=== PATIENT | female | born 1980 | race Caucasian/White ===

== ENCOUNTER → 2018-04-06 10:24 | Outpatient (CLI) | payer BC, SELFPAY ==
--- NOTE | 2018-04-06 10:30 | XR_ITS ---
XR ankle RT min 3V HISTORY: Posttraumatic pain ITS.REASON: RT FOOT INJURY,RT ANKLE SPRAIN ORDERING PHYSICIAN: СЕРГЕЙ Euceda PATIENT AGE: 37 years Comparison: None FINDINGS: No fracture or dislocation. No lytic or blastic change. There is normal mineralization.. The joint spaces are well-preserved. No significant degenerative/arthritic changes. No erosive changes evident. IMPRESSION: Negative ankle, no acute finding
--- NOTE | 2018-04-06 10:30 | XR_ITS ---
XR foot RT min 3V HISTORY: Posttraumatic pain ORDERING PHYSICIAN: СЕРГЕЙ Euceda PATIENT AGE: 37 years COMPARISON: None FINDINGS: No fracture or dislocation. No lytic or blastic change. There is normal mineralization.. The joint spaces are well-preserved. No significant degenerative/arthritic changes. No erosive changes evident. IMPRESSION: Negative, no acute finding
== END ==
PROVIDERS: PCP Family Medicine; Visit Provider Physician Assistant
DX: S99.921A Unspecified injury of right foot, initial encounter (principal); S93.491A Sprain of other ligament of right ankle, initial encounter
CPT/HCPCS: 73610; 73630

== ENCOUNTER → 2018-05-12 15:36 | Outpatient (CLI) | payer BC, SELFPAY ==
[2018-05-12 15:41] LABS: Microscopic, Urine URINE MICROSCOPIC (MICROSCOPIC)
[2018-05-12 16:26] LABS: Appearance,Urine CLOUDY (Clear); Bilirubin,Urine Negative (Negative); Blood, Urine 1+ (Negative); Color,Urine YELLOW (Yellow); Glucose,Urine (UA) Negative (Negative); Ketones,Urine Negative (Negative); Leukocyte Esterase,Urine TRACE (Negative); Nitrate,Urine Negative (Negative); Protein,Urine Negative (Negative); Specific Gravity, Urine >= 1.030 (1.005-1.030); Urobilinogen,Urine 0.2 EU/dl (0.2)
[2018-05-12 17:12] LABS: Bacteria,Urine 2+ /lpf
== END ==
PROVIDERS: Visit Provider Emergency Medicine
DX: N30.01 Acute cystitis with hematuria (principal)
CPT/HCPCS: 81001; 87086

== ENCOUNTER → 2018-09-26 14:00 | Outpatient (POV) | payer BC, SELFPAY | PROVIDERS: Visit Provider Dermatology | DX: Z00.00 Encounter for general adult medical examination without abnormal findings (principal) ==

== ENCOUNTER → 2018-10-19 10:11 | Outpatient (CLI) | payer BC, SELFPAY ==
[2018-10-19 10:33] LABS: Urine Pregnancy, HCG Qual. Negative (Negative)
[2018-10-19 10:57] LABS: Basophils % 0.2 % (0.1-2.0); Eosinophils # 0.5 K/mm3 (0.0-0.4); Eosinophils % 5.4 % (0.1-12.0); Hematocrit 45.9 % (37.0-47.0); Hemoglobin 14.8 g/dL (12.2-16.2); Lymphocytes # 2.7 K/mm3 (0.7-4.5); Lymphocytes % 30.4 % (10-50); Mean Corpuscular HGB Conc 32.3 g/dL (31.8-35.4); Mean Corpuscular Hemoglobin 29.9 pg (27.0-31.2); Mean Corpuscular Volume 92.5 fl (81-99); Mean Platelet Volume 8.6 fl (7.4-10.4); Monocytes # 0.7 K/mm3 (0.1-1.0); Monocytes % 7.4 % (1.7-9.3); Neutrophils % 56.6 % (37.0-80.0); Platelet Count 284 K/mm3 (142-424); Red Blood Count 4.96 M/mm3 (4.20-5.40); Red Cell Distribution Width 13.3 % (11.5-17.5); White Blood Count 8.8 K/mm3 (4.8-10.8)
[2018-10-19 13:50] LABS: Anion Gap 15.4 mEq/L (5-15); Blood Urea Nitrogen 17 mg/dL (7-18); Calcium 8.8 mg/dL (8.5-10.1); Carbon Dioxide 25 mmol/L (21.0-32.0); Chloride 104 mmol/L (98-107); Creatinine,Serum 0.85 mg/dL (0.55-1.02); Estimated Glomerular Filt Rate 75 ml/min (>60); GFR (African American) 91 ML/MIN (>60); Glucose 96 mg/dL (74-106); Potassium 4.4 mmoL/L (3.5-5.1); Sodium 140 mmol/L (136-145)
== END ==
PROVIDERS: Visit Provider Nurse Practitioner Obstetrics & Gynecology
DX: Z01.818 Encounter for other preprocedural examination (principal); Z30.09 Encounter for other general counseling and advice on contraception
CPT/HCPCS: 36415; 80048; 81025; 85025

== ENCOUNTER → 2018-12-19 14:04 | Outpatient (POV) | payer BC, SELFPAY ==
[2018-12-19 15:03] LABS: Basophils % 0.3 % (0.1-2.0); Eosinophils # 0.4 K/mm3 (0.0-0.4); Eosinophils % 3.9 % (0.1-12.0); Hematocrit 43.4 % (37.0-47.0); Hemoglobin 14.4 g/dL (12.2-16.2); Lymphocytes # 3.5 K/mm3 (0.7-4.5); Lymphocytes % 30.9 % (10-50); Mean Corpuscular HGB Conc 33.1 g/dL (31.8-35.4); Mean Corpuscular Hemoglobin 29.6 pg (27.0-31.2); Mean Corpuscular Volume 89.3 fl (81-99); Monocytes # 0.6 K/mm3 (0.1-1.0); Monocytes % 5.4 % (1.7-9.3); Neutrophils # 6.7 K/mm3 (1.8-7.8); Neutrophils % 59.4 % (37.0-80.0); Platelet Count 365 K/mm3 (142-424); Red Blood Count 4.86 M/mm3 (4.20-5.40); White Blood Count 11.2 K/mm3 (4.8-10.8)
[2018-12-19 16:02] LABS: Alanine Aminotransferase 25 U/L (12-78); Albumin Level 4.1 gm/dL (3.4-5.0); Albumin/Globulin Ratio 1.3 (1.1-1.8); Alkaline Phosphatase 129 U/L (46-116); Anion Gap 13.6 mEq/L (5-15); Aspartate Amino Transferase 13 U/L (15-37); Bilirubin,Total 0.3 mg/dL (0.2-1.0); Blood Urea Nitrogen 16 mg/dL (7-18); Calcium 9.6 mg/dL (8.5-10.1); Carbon Dioxide 28 mmol/L (21.0-32.0); Chloride 102 mmol/L (98-107); Creatinine,Serum 0.93 mg/dL (0.55-1.02); Estimated Glomerular Filt Rate 67 ml/min (>60); GFR (African American) 82 ML/MIN (>60); Globulin 3.2 gm/dl (1.3-3.2); Glucose 94 mg/dL (74-106); Potassium 4.6 mmoL/L (3.5-5.1); Sodium 139 mmol/L (136-145); Total Protein,Serum 7.3 gm/dL (6.4-8.2)
[2018-12-21 10:14] LABS: Hep A Ab, IgM Negative (Negative); Hepatitis B Core Antibody IgM Negative (Negative); Hepatitis B Surface Antigen Negative (Negative)
[2018-12-21 12:35] LABS: Hepatitis C Antibody <0.1 s/co ratio (0.0-0.9)
[2018-12-22 14:20] LABS: QuantiFERON-TB Gold Plus Negative (Negative)
== END ==
PROVIDERS: Visit Provider Dermatology
DX: L40.0 Psoriasis vulgaris (principal); Z79.899 Other long term (current) drug therapy
CPT/HCPCS: 36415; 80053; 80074; 85025; 86480

== ENCOUNTER → 2019-01-16 15:40 | Outpatient (POV) | payer BC, SELFPAY ==
[2019-01-16 16:47] LABS: Basophils % 0.4 % (0.1-2.0); Eosinophils # 0.4 K/mm3 (0.0-0.4); Eosinophils % 5.1 % (0.1-12.0); Hematocrit 41.1 % (37.0-47.0); Hemoglobin 13.8 g/dL (12.2-16.2); Lymphocytes # 3.1 K/mm3 (0.7-4.5); Lymphocytes % 37.4 % (10-50); Mean Corpuscular HGB Conc 33.6 g/dL (31.8-35.4); Mean Corpuscular Hemoglobin 30.1 pg (27.0-31.2); Mean Corpuscular Volume 89.6 fl (81-99); Mean Platelet Volume 8.6 fl (7.4-10.4); Monocytes # 0.6 K/mm3 (0.1-1.0); Monocytes % 7.3 % (1.7-9.3); Neutrophils # 4.2 K/mm3 (1.8-7.8); Neutrophils % 49.8 % (37.0-80.0); Platelet Count 352 K/mm3 (142-424); Red Blood Count 4.59 M/mm3 (4.20-5.40); Red Cell Distribution Width 13.1 % (11.5-17.5); White Blood Count 8.4 K/mm3 (4.8-10.8)
[2019-01-16 17:20] LABS: Alanine Aminotransferase 23 U/L (12-78); Albumin Level 3.9 gm/dL (3.4-5.0); Albumin/Globulin Ratio 1.3 (1.1-1.8); Alkaline Phosphatase 138 U/L (46-116); Anion Gap 11.2 mEq/L (5-15); Aspartate Amino Transferase 15 U/L (15-37); Bilirubin,Total 0.4 mg/dL (0.2-1.0); Blood Urea Nitrogen 15 mg/dL (7-18); Calcium 9.4 mg/dL (8.5-10.1); Carbon Dioxide 31 mmol/L (21.0-32.0); Chloride 102 mmol/L (98-107); Creatinine,Serum 0.99 mg/dL (0.55-1.02); Estimated Glomerular Filt Rate 63 ml/min (>60); GFR (African American) 76 ML/MIN (>60); Globulin 3.1 gm/dl (1.3-3.2); Glucose 87 mg/dL (74-106); Potassium 4.2 mmoL/L (3.5-5.1); Sodium 140 mmol/L (136-145)
== END ==
PROVIDERS: Visit Provider Dermatology
DX: L40.0 Psoriasis vulgaris (principal); Z79.899 Other long term (current) drug therapy
CPT/HCPCS: 36415; 80053; 85025

== ENCOUNTER → 2019-02-27 16:19 | Outpatient (POV) | payer BC, SELFPAY | PROVIDERS: Visit Provider Dermatology | DX: Z00.00 Encounter for general adult medical examination without abnormal findings (principal) ==

== ENCOUNTER → 2019-02-27 16:20 | Outpatient (CLI) | payer BC, SELFPAY ==
[2019-02-27 16:46] LABS: Basophils % 0.3 % (0.1-2.0); Eosinophils # 0.5 K/mm3 (0.0-0.4); Eosinophils % 3.8 % (0.1-12.0); Hematocrit 44.5 % (37.0-47.0); Hemoglobin 14.5 g/dL (12.2-16.2); Lymphocytes # 3.5 K/mm3 (0.7-4.5); Lymphocytes % 28.8 % (10-50); Mean Corpuscular HGB Conc 32.6 g/dL (31.8-35.4); Mean Corpuscular Hemoglobin 30.2 pg (27.0-31.2); Mean Corpuscular Volume 92.6 fl (81-99); Mean Platelet Volume 7.8 fl (7.4-10.4); Monocytes # 0.9 K/mm3 (0.1-1.0); Monocytes % 7.2 % (1.7-9.3); Neutrophils # 7.2 K/mm3 (1.8-7.8); Neutrophils % 59.9 % (37.0-80.0); Platelet Count 397 K/mm3 (142-424); Red Cell Distribution Width 13.7 % (11.5-17.5); White Blood Count 12.1 K/mm3 (4.8-10.8)
[2019-02-27 18:32] LABS: Alanine Aminotransferase 19 U/L (12-78); Albumin Level 3.9 gm/dL (3.4-5.0); Albumin/Globulin Ratio 1.2 (1.1-1.8); Alkaline Phosphatase 126 U/L (46-116); Anion Gap 12.4 mEq/L (5-15); Aspartate Amino Transferase 7 U/L (15-37); Bilirubin,Total 0.3 mg/dL (0.2-1.0); Blood Urea Nitrogen 15 mg/dL (7-18); Calcium 8.9 mg/dL (8.5-10.1); Carbon Dioxide 29 mmol/L (21.0-32.0); Chloride 102 mmol/L (98-107); Estimated Glomerular Filt Rate 80 ml/min (>60); GFR (African American) 97 ML/MIN (>60); Globulin 3.2 gm/dl (1.3-3.2); Glucose 89 mg/dL (74-106); Potassium 4.4 mmoL/L (3.5-5.1); Sodium 139 mmol/L (136-145); Total Protein,Serum 7.1 gm/dL (6.4-8.2)
== END ==
PROVIDERS: Visit Provider Dermatology
DX: L40.0 Psoriasis vulgaris (principal); Z79.899 Other long term (current) drug therapy
CPT/HCPCS: 36415; 80053; 85025

== ENCOUNTER → 2019-03-09 15:56 | Outpatient (CLI) | payer BC, SELFPAY ==
--- NOTE | 2019-03-09 16:04 | XR_ITS ---
PROCEDURE: XR HAND LT 2V CLINICAL INDICATION: LT HAND PAIN,PSORIASIS COMPARISON: No exams were available for comparison FINDINGS: No fracture or dislocation. No lytic or blastic change. There is normal mineralization. The joint spaces are well-preserved. No significant degenerative/arthritic changes. No erosive changes evident. Other findings:None. IMPRESSION: Negative left hand Dictated by: Andres Quick MD 03/09/2019 16:51 Electronically signed by Andres Quick MD in [place] 03/09/2019 16:51
--- NOTE | 2019-03-09 16:04 | XR_ITS ---
PROCEDURE: XR HAND RT 2V CLINICAL INDICATION: PSORIASIS,RT HAND PAIN COMPARISON: No exams were available for comparison FINDINGS: No fracture or dislocation. No lytic or blastic change. There is normal mineralization. The joint spaces are well-preserved. No significant degenerative/arthritic changes. No erosive changes evident. Other findings:None. IMPRESSION: Negative right hand Dictated by: Andres Quick MD 03/09/2019 16:51 Electronically signed by Andres Quick MD in [place] 03/09/2019 16:51
--- NOTE | 2019-03-09 16:04 | XR_ITS ---
PROCEDURE: XR KNEE RT 2V CLINICAL INDICATION: DEMETRI KNEE/JOINT PAIN Knee pain COMPARISON: KNEE3R KNEE-3 VIEWS-RT from 12/21/2016 FINDINGS: No fracture or dislocation. No lytic or blastic change. There is normal mineralization. The joint spaces are well-preserved. No significant degenerative/arthritic changes. No erosive changes evident. Other findings:None. IMPRESSION: Negative right knee Dictated by: Andres Quick MD 03/09/2019 16:56 Electronically signed by Andres Quick MD in [facility] 03/09/2019 16:56
--- NOTE | 2019-03-09 16:04 | XR_ITS ---
PROCEDURE: XR KNEE LT 2V CLINICAL INDICATION: DEMETRI KNEE/JOINT PAIN Knee pain COMPARISON: KNEE3R KNEE-3 VIEWS-RT from 12/21/2016 FINDINGS: No fracture or dislocation. No lytic or blastic change. There is normal mineralization. The joint spaces are well-preserved. No significant degenerative/arthritic changes. No erosive changes evident. Other findings:None. IMPRESSION: Negative left knee Dictated by: Andres Quick MD 03/09/2019 16:52 Electronically signed by Andres Quick MD in [place] 03/09/2019 16:52
== END ==
PROVIDERS: PCP Emergency Medicine; Visit Provider Internal Medicine Rheumatology
DX: M79.642 Pain in left hand (principal); M79.641 Pain in right hand; M25.562 Pain in left knee; M25.561 Pain in right knee
CPT/HCPCS: 73120; 73560

== ENCOUNTER → 2019-03-27 15:32 | Outpatient (POV) | payer BC, SELFPAY | PROVIDERS: Visit Provider Dermatology | DX: Z00.00 Encounter for general adult medical examination without abnormal findings (principal) ==

== ENCOUNTER → 2019-06-05 15:24 | Outpatient (POV) | payer BC, SELFPAY | PROVIDERS: Visit Provider Dermatology | DX: Z00.00 Encounter for general adult medical examination without abnormal findings (principal) ==

== ENCOUNTER → 2019-10-24 13:46 | Outpatient (CLI) | payer BC, SELFPAY ==
--- NOTE | 2019-10-24 13:57 | US_ITS ---
PROCEDURE: US TRANSVAGINAL CLINICAL INDICATION: right lower quadrant pain COMPARISON: No exams were available for comparison FINDINGS: UTERUS: 7cm x 5cmx 4cm with a combined endometrial thickness of 6.2mm LEFT OVARY: 3svx3zdt4.2cm with a volume of 14ml. RIGHT OVARY: [id number] with a volume of 5.7ml. There are small bilateral ovarian follicles measuring up to 14 mm in on the left. No cul-de-sac fluid. IMPRESSION: Negative pelvic ultrasound Dictated by: Andres Quick MD 10/24/2019 15:14 Electronically signed by Andres Quick MD in [facility] 10/24/2019 15:14
== END ==
PROVIDERS: PCP Family Medicine; Visit Provider Nurse Practitioner Obstetrics & Gynecology
DX: R10.31 Right lower quadrant pain (principal)
CPT/HCPCS: 76830

== ENCOUNTER → 2019-12-11 15:44 | Outpatient (POV) | payer BC, SELFPAY | PROVIDERS: Visit Provider Dermatology | DX: Z00.00 Encounter for general adult medical examination without abnormal findings (principal) ==

== ENCOUNTER → 2019-12-13 15:49 | Outpatient (CLI) | payer BC, SELFPAY ==
[2019-12-13 16:26] LABS: Chloride 102 mmol/L (98-107); Potassium 4.9 mmoL/L (3.5-5.1); Sodium 138 mmol/L (136-145)
[2019-12-13 16:28] LABS: Blood Urea Nitrogen 14 mg/dl (7-17); Estimated Glomerular Filt Rate 70 ml/min (>60); GFR (African American) 84 ML/MIN (>60)
[2019-12-13 16:29] LABS: Alanine Aminotransferase 17 U/L (12-78); Albumin Level 4.2 g/dl (3.5-5.0); Albumin/Globulin Ratio 1.4 (1.1-1.8); Alkaline Phosphatase 116 U/L (38-126); Anion Gap 12.9 mEq/L (5-15); Aspartate Amino Transferase 20 U/L (14-36); Bilirubin,Total 0.4 mg/dl (0.2-1.3); Carbon Dioxide 28 mmol/L (22.0-30.0); Glucose 103 mg/dl (74-100); Total Protein,Serum 7.2 g/dl (6.3-8.2)
[2019-12-13 16:58] LABS: Basophils # 0.1 K/mm3 (0-0.2); Basophils % 0.4 % (0.1-2.0); Eosinophils # 0.5 K/mm3 (0.0-0.4); Eosinophils % 3.7 % (0.1-12.0); Hematocrit 43.6 % (37.0-47.0); Hemoglobin 14.6 g/dL (12.2-16.2); Lymphocytes % 31.3 % (10-50); Mean Corpuscular HGB Conc 33.4 g/dL (31.8-35.4); Mean Corpuscular Hemoglobin 30.5 pg (27.0-31.2); Mean Corpuscular Volume 91.2 fl (81-99); Mean Platelet Volume 8.2 fl (7.4-10.4); Monocytes # 0.8 K/mm3 (0.1-1.0); Neutrophils # 7.5 K/mm3 (1.8-7.8); Neutrophils % 58.6 % (37.0-80.0); Platelet Count 337 K/mm3 (142-424); Red Blood Count 4.78 M/mm3 (4.20-5.40); Red Cell Distribution Width 13.1 % (11.5-17.5); White Blood Count 12.9 K/mm3 (4.8-10.8)
[2019-12-16 15:10] LABS: QuantiFERON-TB Gold Plus Negative (Negative)
== END ==
PROVIDERS: Visit Provider Dermatology
DX: L40.0 Psoriasis vulgaris (principal); Z79.899 Other long term (current) drug therapy
CPT/HCPCS: 36415; 80053; 85025; 86480

== ENCOUNTER → 2020-01-22 10:40 | Outpatient (CLI) | payer BC, SELFPAY ==
--- NOTE | 2020-01-22 10:49 | CT_ITS ---
PROCEDURE: CT ABDOMEN PELVIS WO/W CON CLINICAL INDICATION: RLQ ABD PAIN COMPARISON: CT ABDPELW/O CT ABD PELVIS W/O CONTRAST from 07/23/[address] ABDOMEN PELVIS W CON from 06/18/2019 TECHNIQUE: IV Contrast: 75ML OPTIRAY 350 Oral Contrast None Axial images obtained with sagittal and coronal reformats. All CT scans at the facility use one or more dose reduction, viz: automated exposure control, ma/kV adjustment per patient size (including targeted exams where dose is matched to indication, i.e. head), or iterative reconstruction technique. FINDINGS: LOWER THORAX: There are mild atelectatic or fibrotic changes in the right lung base. ABDOMEN & PELVIS: The liver, spleen, adrenal glands, pancreas, and kidneys have an unremarkable appearance. No renal or ureteral calculi. There has been a prior cholecystectomy. No hydronephrosis. No intestinal obstruction or free air. The appendix is small with a slightly thickened appearance at approximately 7 mm. There is no stranding of the periappendiceal fat. This had a similar appearance on a older study of 07/23/2016. No definite evidence of appendicitis. If symptoms persist, consider follow-up exam with IV and oral contrast. There is some mild thickening of the colon in the hepatic flexure region and ascending colon which could be due to nondistention or mild colitis. There is a small umbilical hernia which contains fat. There is a small right ovarian cyst at 16 mm. Minimal amount of fluid noted in the pelvis. No pelvic mass apparent. No acute bony anomaly. IMPRESSION: 1. The appendix is small with mildly thickened appearance probably not significantly changed from older exam of 07/23/2016. If symptoms persist, consider repeat exam with IV and oral contrast. 2. Minimal thickening of the ascending colon and hepatic flexure which could be due to nondistention or mild colitis. 3. Small umbilical hernia containing fat Dictated by: Andres Quick MD 01/22/2020 12:35 Andres Quick MD in [place] 01/22/2020 12:35
== END ==
PROVIDERS: PCP Family Medicine; Visit Provider Family Medicine
DX: R10.31 Right lower quadrant pain (principal)
CPT/HCPCS: 74178; Q9967

== ENCOUNTER → 2020-06-30 15:55 | Outpatient (CLI) | payer BC, SELFPAY ==
[2020-06-30 16:41] LABS: Basophils # 0.1 K/mm3 (0-0.2); Basophils % 0.3 % (0.1-2.0); Eosinophils # 0.5 K/mm3 (0.0-0.4); Eosinophils % 3.1 % (0.1-12.0); Hematocrit 45.9 % (37.0-47.0); Hemoglobin 15.1 g/dL (12.2-16.2); Lymphocytes # 4.3 K/mm3 (0.7-4.5); Lymphocytes % 27.5 % (10-50); Mean Corpuscular HGB Conc 32.8 g/dL (31.8-35.4); Mean Corpuscular Hemoglobin 29.9 pg (27.0-31.2); Mean Corpuscular Volume 91.1 fl (81-99); Mean Platelet Volume 8.5 fl (7.4-10.4); Monocytes # 0.8 K/mm3 (0.1-1.0); Monocytes % 5.2 % (1.7-9.3); Neutrophils # 10.1 K/mm3 (1.8-7.8); Neutrophils % 63.9 % (37.0-80.0); Platelet Count 347 K/mm3 (142-424); Red Blood Count 5.04 M/mm3 (4.20-5.40); Red Cell Distribution Width 13.2 % (11.5-17.5); White Blood Count 15.7 K/mm3 (4.8-10.8)
[2020-06-30 17:32] LABS: MANUAL DIFFERENTIAL MANUAL DIFFERENTIAL (MANUAL DIFF)
[2020-06-30 17:54] LABS: Alanine Aminotransferase 21 U/L (12-78); Albumin Level 4.6 g/dl (3.5-5.0); Albumin/Globulin Ratio 1.5 (1.1-1.8); Alkaline Phosphatase 101 U/L (38-126); Amylase 72 U/L (30-110); Anion Gap 15.4 mEq/L (5-15); Aspartate Amino Transferase 22 U/L (14-36); Bilirubin,Total 0.5 mg/dl (0.2-1.3); Blood Urea Nitrogen 17 mg/dl (7-17); Calcium 11.9 mg/dl (8.4-10.2); Carbon Dioxide 26 mmol/L (22.0-30.0); Chloride 100 mmol/L (98-107); Estimated Glomerular Filt Rate 70 ml/min (>60); GFR (African American) 84 ML/MIN (>60); Globulin 3.1 g/dL (1.3-3.2); Glucose 124 mg/dl (74-100); Lipase 89 U/L (23-300); Potassium 4.4 mmoL/L (3.5-5.1); Sodium 137 mmol/L (136-145); Total Protein,Serum 7.7 g/dl (6.3-8.2)
[2020-06-30 22:14] LABS: Eosinophils % 2 % (0-3); Lymphocytes % 34 % (10-50); Monocytes % 1 % (2-9); Neutrophils % 62 % (42-76); Platelet Estimate Normal; Stomatocytes 1+; Total Cells Counted 100
[2020-07-02 13:28] LABS: H. pylori Breath Test Negative (Negative)
== END ==
PROVIDERS: Visit Provider Nurse Practitioner
DX: R10.13 Epigastric pain (principal)
CPT/HCPCS: 36415; 80053; 82150; 83013; 83690; 85007; 85025

== ENCOUNTER 2020-08-08 09:51 | Emergency (ER) | payer BC, SELFPAY ==
[2020-08-08 09:55] VITALS: BP 144/87; PULSE 98; RESP 21; TEMP 36.6; O2SAT 96; BMI 34.3
[2020-08-08 10:27] LABS: UTC Strep Screen (Rapid) Positive (Negative)
--- NOTE | 2020-08-08 10:39 | HMH.EDUTC ---
[facility] [place] Clinical Impression: Strep throat Disposition: Home, Self-Care Condition on Discharge: Good Instructions: DI for Strep Throat, Sinusitis, Cefdinir Additional Instructions: *Monitor Temp, Over the counter Motrin or Tylenol as directed/as needed Tylenol every 4 hours and Motrin every 6 hours (as long as your family doctor has told you that you can take it) for fever or pain. and straight to ER if unable to lower temp less than 101.0 after medication given *Warm salt water gargles may help to soothe the throat *Throat Lozenges *Warm fluids like tea with honey may help to soothe the throat *Sleep elevated *Humidifier/Vaporizer *If you did not take Penicillin shot or was unable to, start taking antibiotic immediately and make sure that you take it for the FULL length of time although you should start to feel better in 24-48 hours *change toothbrush and toothpaste 24-48 hours after starting to take antibiotics so you do not reinfect yourself Monitor Temp. Tylenol and/or Ibuprofen as needed. ER if fever is no less than 101 despite alternating Tylenol and Ibuprofen * Encourage fluids, water, Gatorade, powerade, pedialyte if /toddler/or child *Cold fluids, popsicles and ice cream may feel good on his throat Follow up IMMEDIATELY for new or worsening symptoms or no Noticeable improvement over the next 48-72 hours. 911 for difficulty breathing or swallowing Prescriptions: Cefdinir [Omnicef 300mg Capsule] 300 mg PO BID #20 cap Transmission Status: Pending to [facility] Referrals: Rowdy Deluna MD [Primary Care Provider] - As needed Forms: Work/School Release Time of Disposition: 10:51 Medical Decision Making - Kaleb Inquiry Pt receiving controlled substance: No Kaleb was queried for this patient: No Vital Signs: 08/08/20 09:55 Temperature 97.9 F Temperature Source Oral Pulse Rate [Right Brachial] 98 H Respiratory Rate 21 Blood Pressure [Right Arm] 144/87 H Blood Pressure Mean [Right Arm] 106 Blood Pressure Source [Right Arm] Automatic Cuff Blood Pressure Position [Right Arm] Sitting 02 Sat by Pulse Oximetry 96 Oxygen Delivery Method Room Air - Lab Data Lab results reviewed: Yes: I reviewed the patient's lab results. Lab Results 08/08/20 10:08: Strep Scn Rapid Clinic Positive A [facility] [place] HPI - General Stated complaint: sore throat Time Seen by Provider: 08/08/20 10:39 Mode of Arrival: Ambulatory Source of Information: Patient Limitations: No Limitations Description of Symptoms (Recalled from Triage Doc. by RN): PATIENT C/O SORE THROAT, SINUS DRAINAGE, AND COUGH SINCE YESTERDAY HEENT Symptoms (Recalled from RN notes): Yes Resp Symptoms (Recalled from RN notes): Yes Skin Symptoms (Recalled from RN notes): No MS Symptoms (Recalled from RN notes): No Functional Status (Recalled from RN notes): WNL - History of Present Illness Provider Complaint: Patient state that she has been having sore throat, cough, and sinus drainage since yesterday State that today her throat feels scratchy and hurts worse when she swallows and over all she was feeling bad so she came in to get checked - Related Data Home Medications Medication Instructions Recorded Confirmed ixekizumab 80 mg/mL subcutaneous 2 inj SQ MONTHLY 05/09/19 08/08/20 auto-injector Previous Rx's Medication Instructions Recorded Cefdinir [Omnicef 300mg Capsule] 300 mg PO BID #20 cap 08/08/20 Allergies Allergy/AdvReac Type Severity Reaction Status Date / Time No Known Allergies Allergy Verified 11/05/19 09:24 - Worker's Comp Is this a Worker's Comp case?: No [facility] History - Hepatitis A Screen Drug use history?: No High risk sexual behaviors?: No History of sexually transmitted infection?: No Currently employed?: No Childcare worker?: No Do you have indoor plumbing?: Yes Do you have electricity?: Yes Attestation statement:: This patient has been screened for Hepatitis A risk fac
[2020-08-08 10:58] VITALS: BP 144/87; PULSE 98; RESP 21; TEMP 36.6; O2SAT 96
== END 2020-08-08 11:00 | disposition home or self-care (01) ==
PROVIDERS: Emergency Provider Nurse Practitioner; PCP Family Medicine
DX: J02.0 Streptococcal pharyngitis (principal); F41.8 Other specified anxiety disorders
CPT/HCPCS: 87880; 99202; G0463

== ENCOUNTER → 2021-01-06 16:19 | Outpatient (POV) | payer BC, SELFPAY | PROVIDERS: Visit Provider Dermatology | DX: Z00.00 Encounter for general adult medical examination without abnormal findings (principal) ==

== ENCOUNTER → 2021-01-06 16:42 | Outpatient (CLI) | payer BC, SELFPAY ==
[2021-01-06 17:23] LABS: Basophils % 0.3 % (0.1-2.0); Eosinophils # 0.4 K/mm3 (0.0-0.4); Eosinophils % 3.4 % (0.1-12.0); Hematocrit 42.1 % (37.0-47.0); Hemoglobin 14.3 g/dL (12.2-16.2); Lymphocytes # 3.5 K/mm3 (0.7-4.5); Lymphocytes % 27.4 % (10-50); Mean Corpuscular HGB Conc 34.1 g/dL (31.8-35.4); Mean Corpuscular Hemoglobin 31.3 pg (27.0-31.2); Mean Corpuscular Volume 91.7 fl (81-99); Mean Platelet Volume 8.8 fl (7.4-10.4); Monocytes # 0.9 K/mm3 (0.1-1.0); Monocytes % 6.7 % (1.7-9.3); Neutrophils # 7.9 K/mm3 (1.8-7.8); Neutrophils % 62.1 % (37.0-80.0); Platelet Count 290 K/mm3 (142-424); Red Blood Count 4.59 M/mm3 (4.20-5.40); Red Cell Distribution Width 12.9 % (11.5-17.5); White Blood Count 12.7 K/mm3 (4.8-10.8)
[2021-01-06 18:17] LABS: Alanine Aminotransferase 19 U/L (12-78); Albumin Level 4.4 g/dl (3.5-5.0); Albumin/Globulin Ratio 1.6 (1.1-1.8); Alkaline Phosphatase 108 U/L (38-126); Anion Gap 17.2 mEq/L (5-15); Aspartate Amino Transferase 22 U/L (14-36); Bilirubin,Total 0.4 mg/dl (0.2-1.3); Blood Urea Nitrogen 15 mg/dl (7-17); Calcium 9.7 mg/dl (8.4-10.2); Carbon Dioxide 20 mmol/L (22.0-30.0); Chloride 103 mmol/L (98-107); Estimated Glomerular Filt Rate 79 ml/min (>60); GFR (African American) 96 ML/MIN (>60); Globulin 2.8 g/dL (1.3-3.2); Glucose 88 mg/dl (74-100); Potassium 4.2 mmoL/L (3.5-5.1); Sodium 136 mmol/L (136-145); Total Protein,Serum 7.2 g/dl (6.3-8.2)
[2021-01-10 08:35] LABS: QuantiFERON-TB Gold Plus Positive (Negative)
== END ==
PROVIDERS: Visit Provider Dermatology
DX: L40.0 Psoriasis vulgaris (principal); Z79.899 Other long term (current) drug therapy
CPT/HCPCS: 36415; 80053; 85025; 86480

== ENCOUNTER → 2021-03-17 10:11 | Outpatient (CLI) | payer BC, SELFPAY ==
[2021-03-23 20:08] LABS: QuantiFERON-TB Gold Plus Negative (Negative)
== END ==
PROVIDERS: Visit Provider Dermatology
DX: L40.0 Psoriasis vulgaris (principal); Z79.899 Other long term (current) drug therapy
CPT/HCPCS: 36415; 86480

== ENCOUNTER → 2021-05-01 11:08 | Outpatient (CLI) | payer BC, SELFPAY ==
--- NOTE | 2021-05-01 11:08 | MM_ITS ---
PROCEDURE INFORMATION: Exam: MG Bilateral Screening 3D Mammography Exam date and time: 05/01/2021 11:08 AM Age: 40 years old Clinical indication: Encounter for screening mammogram for malignant neoplasm of breast TECHNIQUE: Imaging protocol: Bilateral screening tomosynthesis and 2D mammography including computer-aided detection (CAD) when performed. COMPARISON: No relevant prior studies available. FINDINGS: MAMMOGRAPHY: Breast composition: The breast tissue is heterogeneously dense, which may obscure small masses. Mass: 1.4 cm mass in the anterior third of the left lower outer quadrant Architectural distortion: None. Calcifications: No suspicious calcifications. Asymmetric density: None. Skin thickening: None. Axillary adenopathy: None. IMPRESSION: Patient to be recalled for left breast ultrasound for further evaluation of a left breast mass. ASSESSMENT: BI-RADS Category 0: Incomplete- Need Additional Imaging Evaluation and/or Prior Mammograms for Comparison
== END ==
PROVIDERS: PCP Family Medicine; Visit Provider Nurse Practitioner Obstetrics & Gynecology
DX: Z12.31 Encounter for screening mammogram for malignant neoplasm of breast (principal)
CPT/HCPCS: 77063; 77067

== ENCOUNTER → 2021-05-15 15:07 | Outpatient (CLI) | payer BC, SELFPAY ==
--- NOTE | 2021-05-15 15:08 | US_ITS ---
PROCEDURE INFORMATION: Exam: US Left Breast, Complete Exam date and time: 05/15/2021 3:08 PM Age: 40 years old Clinical indication: Patient recalled for further evaluation of a left breast mass TECHNIQUE: Imaging protocol: Complete ultrasound of all four quadrants of the Left breast and the retroareolar regions, including ultrasound of the axilla when performed. COMPARISON: MG MM DIG SCREENING MAMM BI W/CAD 05/01/2021 11:07 AM FINDINGS: Breast: Sonographic images of the left breast including the retroareolar region, all 4 quadrants and the axilla demonstrates a hypoechoic solid appearing partially circumscribed mass in the 5 o'clock axis 3 cm from the nipple most closely corresponding to the mass on mammography. It measures approximately 1.5 x 1.1 x 0.8 cm in dimension. The finding is probably benign in etiology, reflecting focal fibrocystic change. 0.5 cm left upper outer quadrant cyst.. No architectural distortion or acoustical shadowing. No skin thickening or axillary adenopathy. IMPRESSION: Probably benign mass in the left lower outer quadrant. Given however the finding is greater than 1 cm in size and slightly irregularly marginated, ultrasound-guided core biopsy is recommended to ensure a benign etiology. ASSESSMENT: BI-RADS Category 4: Suspicious
== END ==
PROVIDERS: PCP Family Medicine; Visit Provider Nurse Practitioner Obstetrics & Gynecology
DX: R92.8 Other abnormal and inconclusive findings on diagnostic imaging of breast (principal)
CPT/HCPCS: 76641

== ENCOUNTER → 2021-06-01 15:33 | Outpatient (CLI) | payer BC, SELFPAY ==
--- NOTE | 2021-06-01 15:37 | XR_ITS ---
FINAL REPORT CLINICAL HISTORY: RT KNEE PAIN for awhile, no known injury COMPARISON: March 09, 2019 FINDINGS: Three views of the right knee reveal no evidence of fracture or dislocation. The bony alignment is normal. The joint spaces are preserved. There is no evidence of joint effusion. No localized soft tissue abnormality is identified. IMPRESSION: No acute abnormality identified. Reviewed, Interpreted and Dictated by Sandoval Guzman III, MD Transcribed by Charisma Cardenas Authenticated by Sandoval Guzman III, MD on 06/01/2021 04:26:45 PM [facility]
== END ==
PROVIDERS: PCP Nurse Practitioner Family; Visit Provider Nurse Practitioner Family
DX: M25.561 Pain in right knee (principal)
CPT/HCPCS: 73562

== ENCOUNTER → 2021-06-09 09:34 | Outpatient (CLI) | payer BC, SELFPAY ==
--- NOTE | 2021-06-09 | MM_ITS ---
FINAL REPORT CLINICAL HISTORY: Left breast nodule. Postbiopsy mammogram for clip placement and repeat assessment FINDINGS: MAMMOGRAM LEFT TECHNIQUE: Standard digital 2-D views with 3-D tomosynthesis COMPARISON: Prior exam from 2020 DENSITY: There are scattered areas of fibroglandular density FINDINGS: A biopsy marker clip is noted in the left lower outer quadrant. The nodule previously seen on mammography is no longer evident reflective of tissue sampling. A biopsy marker clip is located within the position of the previously seen nodule. No new abnormality is seen. IMPRESSION: Nodule no longer evident following biopsy with biopsy marker clip in good position RECOMMENDATION: Pending histopathology. If results are benign, recommend short-term mammographic follow-up in 6 months as part of post benign biopsy surveillance Authenticated by Michelle Ruiz MD on 06/11/2021 03:13:16 PM [facility]
--- NOTE | 2021-06-09 09:34 | US_ITS ---
FINAL REPORT CLINICAL HISTORY: Left breast nodule FINDINGS: ULTRASOUND-GUIDED LEFT BREAST BIOPSY TECHNIQUE: Limited images were obtained to localize region of interest. The was prepped in a routine sterile fashion and locally anesthetized with 1% lidocaine. Mammotome vacuum-assisted core biopsy was performed. The needle was directed posterior to the lesion of interest. Multiple core samples were obtained. The nodule was no longer evident after biopsy likely reflective of complete tissue sampling. A biopsy marker clip was deployed in the vicinity of the biopsy in good position. Procedure was well tolerated . CONCLUSION: 1. Technically successful ultrasound guided core biopsy of left breast nodule as above. 2. Biopsy marker clip deployed Authenticated by Michelle Ruiz MD on 06/11/2021 03:10:37 PM [facility]
== END ==
PROVIDERS: PCP Nurse Practitioner Family; Visit Provider Nurse Practitioner Obstetrics & Gynecology
DX: R92.8 Other abnormal and inconclusive findings on diagnostic imaging of breast (principal); N63.20 Unspecified lump in the left breast, unspecified quadrant
CPT/HCPCS: 19083; 77065; C2618

== ENCOUNTER → 2021-07-01 15:50 | Outpatient (CLI) | payer BC, SELFPAY ==
[2021-07-01 16:33] LABS: Basophils # 0.1 K/mm3 (0-0.2); Basophils % 1.1 % (0.1-2.0); Eosinophils # 0.7 K/mm3 (0.0-0.4); Eosinophils % 5.7 % (0.1-12.0); Hematocrit 44.7 % (37.0-47.0); Hemoglobin 14.1 g/dL (12.2-16.2); Lymphocytes % 32.9 % (10-50); Mean Corpuscular HGB Conc 31.6 g/dL (31.8-35.4); Mean Corpuscular Hemoglobin 30.4 pg (27.0-31.2); Mean Corpuscular Volume 96.2 fl (81-99); Monocytes # 0.7 K/mm3 (0.1-1.0); Monocytes % 5.6 % (1.7-9.3); Neutrophils # 6.7 K/mm3 (1.8-7.8); Neutrophils % 54.8 % (37.0-80.0); Platelet Count 355 K/mm3 (142-424); Red Blood Count 4.65 M/mm3 (4.20-5.40); Red Cell Distribution Width 13.2 % (11.5-17.5); White Blood Count 12.1 K/mm3 (4.8-10.8)
[2021-07-01 17:16] LABS: Anion Gap 12.7 mEq/L (5-15); Blood Urea Nitrogen 16 mg/dl (7-17); Calcium 9.4 mg/dl (8.4-10.2); Carbon Dioxide 30 mmol/L (22.0-30.0); Chloride 101 mmol/L (98-107); Estimated Glomerular Filt Rate 93 ml/min (>60); GFR (African American) 112 ML/MIN (>60); Glucose 95 mg/dl (74-100); Potassium 4.7 mmoL/L (3.5-5.1); Sodium 139 mmol/L (136-145)
== END ==
PROVIDERS: Visit Provider Surgery
DX: Z01.812 Encounter for preprocedural laboratory examination (principal); Z11.52 Encounter for screening for COVID-19; N63.20 Unspecified lump in the left breast, unspecified quadrant
CPT/HCPCS: 80048; 85025; C9803; U0003; U0005

== ENCOUNTER 2021-07-03 10:41 | Day surgery (SDC) | payer BC, SELFPAY ==
[2021-06-30 10:23] VITALS: BMI 31.3
[2021-07-03] VITALS (9 sets, daily range): BP systolic 100–133; BP diastolic 45–79; PULSE 77–88; RESP 14–18; TEMP 36.1–36.4; O2SAT 94–98
--- NOTE | 2021-07-03 10:47 | MM_ITS ---
FINAL REPORT TECHNIQUE: PROCEDURE: Following a universal protocol, patient and site verification was performed with a ?time out? prior to the procedure. Preliminary mammographic views of the breast confirm the presence of a localization clip. CLINICAL HISTORY: .needle loc lt. breast FINDINGS: Informed consent was obtained. A localizing grid film was obtained. The skin was cleansed with ChloraPrep. Using a lateral approach, a needle/wire assembly was used to localize the target. Post-localization mammographic views disclosed the target to be just posterior to the clip. IMPRESSION: Needle/wire localization of the breast as above. Reviewed, Interpreted and Dictated by Sandoval Guzman III, MD Transcribed by СЕРГЕЙ Telles Authenticated by Sandoval Guzman III, MD on 07/10/2021 09:16:05 AM [facility]
--- NOTE | 2021-07-03 10:53 | MM_ITS ---
FINAL REPORT CLINICAL HISTORY: . s/p needle loc FINDINGS: Specimen radiograph History: Excisional biopsy Findings: Images were obtained from a single specimen radiograph. A biopsy marker clip is noted at the margin of the tissue. Localization wire is not seen within the tissue. There is no corresponding lesion such as mass or calcification near the biopsy marker clip. However there was no lesion mammographically on localization images. IMPRESSION: Specimen radiograph shows tissue containing the biopsy marker clip at the margin of the specimen Authenticated by Sandoval Guzman III, MD on 07/27/2021 04:26:22 PM [facility]
[2021-07-03 11:16] LABS: Urine Pregnancy, HCG Qual. Negative (Negative)
--- NOTE | 2021-07-03 12:40 | HMH.ANESCL ---
[facility] Anesthesia Checklist - Patient Identification Patient Identification: Arm Band - Structural Data Admitted From: Home Planned Operative Procedure/s: Left Breast Biopsy with Needle Localization Consent for Planned Operative Procedure(s) Verified: Yes Verified Documents: Surgical Consent, History and Physical - NPO Status Verified Time NPO: 00:00 - Additional verifications Anesthesia Reactions: No Hx Blood Transfusions: No Blood Transfusion Reaction: No - Airway Assessment C-Spine Mobility Assessed: Yes (mp2) TMJ Mobility Assessed: Yes Dentition: Good Dentition - Neurological Assessment Level of Consciousness: Awake, Alert - Anesthesia Plan Anesthesia Risk discussed: Yes Anesthesia Plan: Verified ASA Class: II Anesthesia Type: General [facility] History I have reviewed the patient's past medical history: Yes Medical History: Reports:: Anxiety, Depression, Urinary Tract Infection Denies:: Cancer, Diabetes Mellitus Type 1, Diabetes Mellitus Type 2, Internal Pacemaker, MRSA, Seizures *Have you ever received a pneumonia vaccine?: No *Have you received a flu vaccine this season?: No Other Medical History: Reports: Sinus Problems. Denies: Blood Transfusion Reaction Anesthesia experience/problems:: nac Other Surgeries: Yes: Cholecystectomy, Dilation and Curettage, Tubal Ligation, Other. No: Pacemaker Amputation: No Fractures: No - *Social History Last grade of school completed: High school graduate Smoking Status: Never smoker Tobacco Type: cigarettes # Packs/Day (cigarettes): 1 Alcohol Intake: never Alcohol Intake Frequency:: holidays/special occasions only Substance Use Type: denies use *Occupational Status:: other Housing: house Household Members: family *Travel in the last 8 weeks: None - Psychiatric History Pschychiatric History:: Reports:: Anxiety, Depression Family Hx:: Hypertension, Coronary Artery Disease
--- NOTE | 2021-07-03 13:48 | SUR.OPER ---
1342-spoke with radiology at this time who confirmed clip was included at edge of specimen, notified Dr. Badillo
--- NOTE | 2021-07-03 13:59 | HMH.OPNOTE ---
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 Post-op Diagnosis:: Same Procedure performed:: Needle-localized excisional biopsy of left breast lesion Surgeon:: Liam Badillo MD [employer]ION AND EMERGENCY CLERK:: Milton Villareal Anesthesia: LMA Estimated blood loss (mL): 15 Operative findings:: Exceptionally shallow placement of localization needle as dictated by target site Displacement of localization needle intraoperatively secondary to shallow placement (see above) Original biopsy clip confirmed to be at margin of specimen (per specimen radiograph) Additional medial/deep margin obtained No obvious palpable abnormalities remained after specimen excision Operative note:: After informed consent was obtained the patient was taken to the radiology department. A localization needle was placed in position. Please see separate report for detail. She was then transferred to the operating room and placed in the supine position. General anesthesia with laryngeal mask airway was achieved. Her left breast was prepped and draped in a sterile fashion. After infiltration with local anesthetic a slightly curvilinear incision was made along the exit site of the localization needle. Per intraoperative findings and review of radiographs, the localization needle was noted to be an exceptionally shallow position. This placement was dictated by target location. Minimal manipulation of tissue resulted in needle displacement. The entire underlying area was carefully elevated as dissection continued around the specimen. The lesion was excised in toto utilizing a combination of sharp dissection and electrocautery. The lesion was marked for margin with dyed and undyed Vicryl. It was then passed off for pathologic evaluation after radiographic confirmation. The original biopsy clip was confirmed radiographically to be within the specimen (at the margin). A small palpable abnormality along the medial/deep margin was noted. This was excised as an additional medial/deep margin utilizing electrocautery. Electrocautery was also utilized to achieve hemostasis. Metallic clips were placed along the wound base and margin. The wound was thoroughly irrigated and subcutaneous tissue was reapproximated with interrupted 2-0 Vicryl. Steri-Strips were placed in position. Dressings were applied and the patient was transferred to recovery in stable condition after removal of her laryngeal mask airway. Condition: stable Disposition: PACU Specimens:: Needle-localized left breast biopsy Extended medial/deep margin Complications:: No immediate
--- NOTE | 2021-07-03 14:04 | HMH.ANESI ---
[facility] Anesthesia Record Part I Intake, IV Amount: 1,000 Estimated blood loss (mL): 10 Urine output (mL): 0 Blood Pressure: 107/45 SaO2: 94 Pulse Rate: 88 Respiratory Rate: 16 Temperature: 97 F Patient is:: Drowsy, Stable Stable to PACU at:: 14:00
--- NOTE | 2021-07-03 14:31 | SUR.PHASEI ---
1429- detailed report called to dylan garcias in post op 1431- pt left in stable condition with dylan garcias in post op.
--- NOTE | 2021-07-06 08:22 | P.PN_ITS ---
[facility] Anesthesia Record Part II Discharge Time: 14:30 Destination: Surgical Day Care (OP Surgery) PACU nurse assessment reviewed?: Yes Patient Condition:: Good Anesthesia Complications:: None Swallowing reflex intact?: Yes Cyanosis?: No Blood Pressure: 105/66 Pulse Rate: 82 Temperature: 97.4 F Mental Status: Alert & Oriented Pain level:: 4 Nausea and/or vomitting:: None Intake, IV Amount: 0
[2021-07-06 08:23] VITALS: BP 105/66; PULSE 82; TEMP 36.3
== END 2021-07-03 15:01 | disposition home or self-care (01) ==
LOC: OR 10:43
PROVIDERS: PCP Nurse Practitioner Family; Visit Provider Surgery
PROC: (CPT 19101; principal; 2021-07-03 12:15)
DX: D24.2 Benign neoplasm of left breast (principal)
CPT/HCPCS: 19101; 19281; 76098; 81025; J2405

== ENCOUNTER 2022-05-24 21:23 | Emergency (ER) | payer BC, SELFPAY ==
[2022-05-24 21:24] VITALS: BP 146/71; PULSE 80; RESP 16; TEMP 36.8; O2SAT 98; BMI 30.7
[2022-05-24 21:40] LABS: Microscopic, Urine URINE MICROSCOPIC (MICROSCOPIC)
[2022-05-24 21:42] LABS: Appearance,Urine CLEAR (Clear); Bilirubin,Urine Negative (Negative); Blood, Urine 1+ (Negative); Color,Urine YELLOW (Yellow); Glucose,Urine (UA) Negative (Negative); Ketones,Urine Negative (Negative); Leukocyte Esterase,Urine Negative (Negative); Nitrate,Urine Negative (Negative); Protein,Urine Negative (Negative); Urobilinogen,Urine 0.2 EU/dl (0.2)
--- NOTE | 2022-05-24 21:42 | CT_ITS ---
PROCEDURE INFORMATION: Exam: CT Abdomen And Pelvis Without Contrast Exam date and time: 05/24/2022 9:52 PM Age: 41 years old Clinical indication: Abdominal pain; Flank; Left; Additional info: Flank pain TECHNIQUE: Imaging protocol: Computed tomography of the abdomen and pelvis without contrast. Radiation optimization: All CT scans at this facility use at least one of these dose optimization techniques: automated exposure control; mA and/or kV adjustment per patient size (includes targeted exams where dose is matched to clinical indication); or iterative reconstruction. Other protocol: This patient has received 0 known CTs and 0 known cardiac nuclear medicine studies in the 12 months prior to the current study. COMPARISON: CT ABDOMEN PELVIS WO/W CON 01/22/2020 11:30 AM FINDINGS: Liver: Normal. No mass. Gallbladder and bile ducts: The gallbladder is surgically absent. Pancreas: Normal. No ductal dilation. Spleen: Normal. No splenomegaly. Adrenal glands: Normal. No mass. Kidneys and ureters: Normal. No hydronephrosis. Stomach and bowel: Unremarkable. No obstruction. No mucosal thickening. Appendix: No evidence of appendicitis. Intraperitoneal space: Unremarkable. No free air. No significant fluid collection. Vasculature: Unremarkable. No abdominal aortic aneurysm. Lymph nodes: Unremarkable. No enlarged lymph nodes. Urinary bladder: Unremarkable as visualized. Reproductive: Unremarkable as visualized. Bones/joints: Unremarkable. No acute fracture. Soft tissues: Unremarkable. IMPRESSION: No significant pathology demonstrated in the abdomen or pelvis
--- NOTE | 2022-05-24 21:50 | PC.NURSE ---
patient gone to CT @ this time.
[2022-05-24 21:54] LABS: Squamous Epithelial Cell,Urine Occasional #/hpf (0-5)
--- NOTE | 2022-05-24 21:54 | HMH.EDBACK ---
Discharge Plan Disposition Patient Disposition: Home, Self-Care Prescriptions Prescriptions: New levofloxacin 500 mg tablet 500 mg PO DAILY 5 Days Qty: 5 0RF Referrals Follow up/Referrals: Josie Kinney APRN [Primary Care Provider] - See instructions Clinical Impressions Clinical Impression: Acute left flank pain Instructions Patient Instructions: DI for Low Back Pain Discharge ED Provider: Alma (ED),Og [facility] Back Pain HPI General Chief Complaint: Back Pain/Injury Stated Complaint: back pain, frequent urination Time Seen by Provider: 05/25/22 00:17 Mode of Arrival: Ambulatory Source of Information: Patient, Spouse and Medical Record Limitations: No Limitations Description of Symptoms (Recalled from ER Triage Doc. by RN): pt c/o lower back pain on the left side along with frequent urination and UTI symptoms the pt stated the UTI symptoms started on tuesday but thelower back pain starteds tonight at 530pm and has not let up History of Present Illness HPI Narrative: lt flank pain with urinary sx which started today - no trauma /fever or rash MD Complaint: back pain Onset (ago): hour(s) Duration: constant Similar Symptoms Previously: No Location: left flank Severity: moderate Associated symptoms: denies other symptoms Related Data Previous Rx's Medication Instructions Recorded levofloxacin 500 mg tablet 500 mg PO DAILY 5 days #5 tabs 05/25/22 Allergies Allergy/AdvReac Type Severity Reaction Status Date / Time No Known Allergies Allergy Verified 07/15/21 10:49 [facility] Disclaimer: The information contained in this section may have been updated after the patient was seen, as this information can be updated by other users. Social History Smoking Status: Current some day smoker tobacco type: cigarettes packs per day: 1 alcohol intake: never substance use type: denies use current occupational status: other Travel in the last 8 weeks: None household members: family housing: house current occupation: teacher caffeine: Yes ROS Obtained: Yes All systems reviewed & no additional complaints except as documented Physical Exam General General appearance: alert Head Head exam: normocephalic Eye Eye exam: Present PERRL and EOMI; Absent scleral icterus ENT ENT exam: Present mucous membranes moist Neck Neck exam: Present trachea midline Respiratory Respiratory exam: Present normal lung sounds bilaterally; Absent respiratory distress Cardiovascular Cardiovascular exam: Present regular rate Abdominal Exam Abdominal exam: Present soft Extremities Exam Extremities exam: Present full ROM Back Exam Back exam: Present CVA tenderness (L) Neurological Exam Neurological exam: Present alert, oriented X3 and CN II-XII intact; Absent motor sensory deficit Psychiatric Psychiatric exam: Present normal affect Skin Skin exam: Absent rash Medical Decision Making Medical Records Medical records reviewed: Yes I reviewed the patient's medical records. Kaleb Inquiry Pt receiving controlled substance: No Vital Signs: 05/24/22 21:24 Temperature 98.2 F Temperature Source Oral Pulse Rate [Left] 80 Respiratory Rate 16 Blood Pressure [Right Arm] 146/71 H Blood Pressure Mean [Right Arm] 96 02 Sat by Pulse Oximetry 98 Oxygen Delivery Method Room Air Lab Data Lab results reviewed: Yes I reviewed the patient's lab results. Lab Results 05/24/22 21:28: Urine Color Yellow, Urine Appearance Clear, Urine pH 7.0, Ur Specific [place] 1.010, Urine Protein Negative, Urine Glucose (UA) Negative, Urine Ketones Negative, Urine Blood 1+, Urine Nitrate Negative, Urine Bilirubin Negative, Urine Urobilinogen 0.2, Ur Leukocyte Esterase Negative, Urine RBC 3-5, Urine WBC None, Ur Squamous Epith Cells Occasional, Urine Bacteria None 05/24/22 21:47: WBC 12.5 H, RBC 4.83, Hgb 14.6, Hct 43.6, MCV 90.3, MCH 30.3, MCHC 33.6, RDW 13.1, Plt Count 328, MPV 8.4, Neut % (Auto) 56.9, Lymph % (Auto) 33.
--- NOTE | 2022-05-24 21:57 | PC.NURSE ---
pt back in room @ this time.
[2022-05-24 21:59] LABS: Chloride 108 mmol/L (98-107); Potassium 3.9 mmoL/L (3.5-5.1); Sodium 140 mmol/L (136-145)
[2022-05-24 22:02] LABS: Alanine Aminotransferase 19 U/L (12-78); Albumin Level 4.6 g/dl (3.5-5.0); Albumin/Globulin Ratio 1.5 (1.1-1.8); Alkaline Phosphatase 85 U/L (38-126); Anion Gap 10.9 mEq/L (5-15); Aspartate Amino Transferase 23 U/L (14-36); Bilirubin,Total 0.3 mg/dl (0.2-1.3); Blood Urea Nitrogen 10 mg/dl (7-17); Calcium 8.7 mg/dl (8.4-10.2); Carbon Dioxide 25 mmol/L (22.0-30.0); Creatinine Clearance Estimated 73 mL/min (50-200); Estimated Glomerular Filt Rate 41 ml/min (>60); GFR (African American) 50 ML/MIN (>60); Glucose 94 mg/dl (74-100); Total Protein,Serum 7.6 g/dl (6.3-8.2)
[2022-05-24 22:04] LABS: Basophils # 0.1 K/mm3 (0-0.2); Basophils % 0.7 % (0.1-2.0); Eosinophils # 0.4 K/mm3 (0.0-0.4); Eosinophils % 2.9 % (0.1-12.0); Hematocrit 43.6 % (37.0-47.0); Hemoglobin 14.6 g/dL (12.2-16.2); Lymphocytes # 4.2 K/mm3 (0.7-4.5); Lymphocytes % 33.4 % (10-50); Mean Corpuscular HGB Conc 33.6 g/dL (31.8-35.4); Mean Corpuscular Hemoglobin 30.3 pg (27.0-31.2); Mean Corpuscular Volume 90.3 fl (81-99); Mean Platelet Volume 8.4 fl (7.4-10.4); Monocytes # 0.8 K/mm3 (0.1-1.0); Monocytes % 6.2 % (1.7-9.3); Neutrophils # 7.1 K/mm3 (1.8-7.8); Neutrophils % 56.9 % (37.0-80.0); Platelet Count 328 K/mm3 (142-424); Red Blood Count 4.83 M/mm3 (4.20-5.40); Red Cell Distribution Width 13.1 % (11.5-17.5); White Blood Count 12.5 K/mm3 (4.8-10.8)
[2022-05-25 00:21] VITALS: BP 134/79; PULSE 71; RESP 16; TEMP 36.8; O2SAT 98
== END 2022-05-25 00:23 | disposition home or self-care (01) ==
PROVIDERS: Emergency Provider Emergency Medicine; PCP Nurse Practitioner Family
DX: R10.9 Unspecified abdominal pain (principal); M54.50 Low back pain, unspecified; R35.0 Frequency of micturition; F17.210 Nicotine dependence, cigarettes, uncomplicated
CPT/HCPCS: 74176; 80053; 81001; 85025; 87086; 96361; 96374; 96375; 99285; J0131; J2405

== ENCOUNTER → 2022-09-07 10:19 | Outpatient (CLI) | payer BC, SELFPAY ==
--- NOTE | 2022-09-07 10:20 | MM_ITS ---
PROCEDURE INFORMATION: Exam: MG Bilateral Screening 3D Mammography Exam date and time: 09/07/2022 10:20 AM Age: 41 years old Clinical indication: Screening mammogram TECHNIQUE: Imaging protocol: Bilateral Screening tomosynthesis and 2D mammography including computer-aided detection (CAD) when performed. COMPARISON: 1. MG MM NEEDLE LOC LT 07/03/2021 10:52 AM 2. MG MM CLIP PLACEMENT LT 06/09/2021 11:50 AM 3. MG MM DIG SCREENING MAMM BI W/CAD 05/01/2021 11:07 AM 4. US BREAST LT COMPLETE 05/15/2021 3:32 PM FINDINGS: MAMMOGRAPHY: Breast composition: The breast is heterogeneously dense, which may obscure small masses. Mass: None. Architectural distortion: No new or suspicious architectural distortion. Calcifications: No new or suspicious calcifications are present Asymmetric density: No new or suspicious asymmetric density is present Skin thickening: None. Axillary adenopathy: None. Other findings: Postoperative findings are present in the lower outer posterior left breast. IMPRESSION: No mammographic evidence of malignancy. Recommend annual screening mammography unless otherwise clinically indicated. ASSESSMENT: BI-RADS category 2: Benign
== END ==
PROVIDERS: PCP Nurse Practitioner Family; Visit Provider Nurse Practitioner Obstetrics & Gynecology
DX: Z12.31 Encounter for screening mammogram for malignant neoplasm of breast (principal)
CPT/HCPCS: 77063; 77067

== ENCOUNTER → 2022-09-17 11:58 | Outpatient (CLI) | payer BC, SELFPAY ==
[2022-09-17 12:04] LABS: Microscopic, Urine URINE MICROSCOPIC (MICROSCOPIC)
--- NOTE | 2022-09-17 12:08 | XR_ITS ---
FINAL REPORT CLINICAL HISTORY: RT FLANK PAIN, urinary incontinences and urgency for 1 week FINDINGS: SINGLE VIEW ABDOMEN A single view of the abdomen was obtained. There is a nonobstructive bowel gas pattern. There are no abnormally dilated loops of small bowel. No abnormal calcifications are identified. IMPRESSION: Nonobstructive bowel gas pattern. Reviewed, Interpreted and Dictated by Sandoval Guzman III, MD Transcribed by Seble Valle Authenticated and [facility]
[2022-09-17 12:12] LABS: Appearance,Urine CLEAR (Clear); Bilirubin,Urine Negative (Negative); Blood, Urine 1+ (Negative); Color,Urine YELLOW (Yellow); Glucose,Urine (UA) Negative (Negative); Ketones,Urine Negative (Negative); Leukocyte Esterase,Urine 2+ (Negative); Nitrate,Urine Negative (Negative); Protein,Urine Negative (Negative)
[2022-09-17 12:27] LABS: Bacteria,Urine 1+ /lpf
== END ==
LOC: RAD 11:59
PROVIDERS: PCP Internal Medicine Adolescent Medicine; Visit Provider Nurse Practitioner Family
DX: R35.0 Frequency of micturition (principal); R32 Unspecified urinary incontinence; R10.9 Unspecified abdominal pain
CPT/HCPCS: 74018; 81001; 87086

== ENCOUNTER 2022-12-26 17:56 | Emergency (ER) | payer BC, SELFPAY ==
[2022-12-26 18:13] VITALS: BP 131/67; PULSE 68; RESP 16; TEMP 36.4; O2SAT 99; BMI 26.6
[2022-12-26 18:30] VITALS: BP 118/68; PULSE 57; RESP 16; O2SAT 100
--- NOTE | 2022-12-26 18:55 | CT_ITS ---
PROCEDURE INFORMATION: Exam: CT Head Without And With Contrast Exam date and time: 12/26/2022 7:35 PM Age: 42 years old Clinical indication: Pain; Headache; Additional info: 10 days of refractory PARK TECHNIQUE: Imaging protocol: Computed tomography of the head without and with contrast. Radiation optimization: All CT scans at this facility use at least one of these dose optimization techniques: automated exposure control; mA and/or kV adjustment per patient size (includes targeted exams where dose is matched to clinical indication); or iterative reconstruction. Contrast material: ISOVUE; Contrast volume: 100 ml; Contrast route: IV; REPORTING DATA: Count of CT and Cardiac NM exams in prior 12 months: This patient has received [address] and 0 known cardiac nuclear medicine studies in the 12 months prior to the current study. COMPARISON: No relevant prior studies available. FINDINGS: Brain: No evidence for acute intracranial hemorrhage, midline shift, or mass effect. No convincing evidence for acute transcortical infarct. Cerebral ventricles: No ventriculomegaly. Paranasal sinuses: Visualized sinuses are unremarkable. No fluid levels. Mastoid air cells: Visualized mastoid air cells are well aerated. Bones/joints: Unremarkable. No acute fracture. Soft tissues: Unremarkable. Other findings: Due to technical difficulties, the axial and sagittal postcontrast images were not available at the time of this interpretation. A limited set of coronal postcontrast images were provided.. IMPRESSION: 1. Due to technical difficulties, the axial and sagittal postcontrast images were not available at the time of this interpretation. A limited set of coronal postcontrast images were provided.. 2. No evidence for acute intracranial hemorrhage, midline shift, or mass effect on the provided images. No convincing evidence for acute transcortical infarct on the provided images.
--- NOTE | 2022-12-26 18:56 | ECG_ITS ---
APPROVED REPORT Exam: Resting ECG HR:46 bpm ECG Measurements Heart Rate 46 AXES SD 145 P 58 QRSd 90 QRS 76 QT 454 T 56 QTc 412 Conclusion SINUS BRADYCARDIA BORDERLINE ECG UNCONFIRMED REPORT Electronically signed by : Gm Figueroa MD 12/27/2022 15:50:46
--- NOTE | 2022-12-26 18:58 | HMH.EDGENADL ---
Discharge Plan Disposition Patient Disposition: Home, Self-Care Prescriptions Prescriptions: No Action valacyclovir 1 gram tablet 1,000 mg PO PRN varenicline [Chantix Starting Month Box] 0.5 mg (11)- 1 mg (42) tablets,dose pack See Rx Instructions PO PER PKG DIR Qty: 53 0RF Rx Instructions: PO PER PKG DIR metronidazole 500 mg tablet 500 mg PO BID Qty: 14 0RF amoxicillin-pot clavulanate [Augmentin] 500-125 mg tablet 1 tab PO BID Qty: 14 0RF Referrals Follow up/Referrals: Naya Avila MD [Staff Physician] - See instructions (evaluation of your refractory headache ) Josie Kinney APRN [Primary Care Provider] - See instructions Activity Restrictions/Add. Instructions Additional Instructions/Restrictions: Given your positional headache I am concerned about a spontaneous CSF leak please discuss this with a neurologist for further evaluation and treatment. No acute intracranial abnormality was found or any other emergent medical condition today was identified. Return with any worsening symptoms. Clinical Impressions Clinical Impression: Near syncope, Headache Discharge ED Provider: Bishnu العلي General Adult HPI General Chief complaint: Headache Stated complaint: PARK Time Seen by Provider: 12/26/22 18:47 Mode of Arrival: Ambulatory Source of Information: Patient Limitations: No Limitations Description of Symptoms (Recalled from ER Triage Doc. by RN): 42 yo F presents to ED with c/o migraine. pt reports headache ongoing since dec 14. pt is waiting for insurance approval for MRI of brain. pt states that she had tried OTC advil and excedrin today with no relief. pt went to [employer] today and had to have come pick her up form [employer] due to headache and symptoms becoming worse. History of Present Illness HPI narrative: 42-year-old previously healthy here with 10 days of refractory headache. States she is awaiting MRI approval for outpatient imaging. Denies any sudden component of this been slowly and insidiously worsening. Diffuse there is some photophobia there is no neck stiffness no fever no neurologic symptoms including changes in vision changes in coordination numbness weakness tingling in the hands or feet no history of any malignancy. She has had no unintentional weight loss or night sweats. The only thing that she states that makes this better or worse that she states this is definitely positional and gets better with lying flat it is worsened with sitting upright. She also yesterday got to the point where she felt very lightheaded like she was in a pass out she still feels a little shaky at the moment. Related Data Home Medications Medication Instructions Recorded Confirmed valacyclovir 1 gram tablet 1,000 mg PO PRN 09/29/22 09/29/22 Previous Rx's Medication Instructions Recorded varenicline 0.5 mg (11)-1 mg (42) See Rx Instructions PO PER PKG DIR 09/29/22 tablets in a dose pack (Chantix #53 tabs Starting Month Box) amoxicillin 500 mg-potassium 1 tab PO BID #14 tabs 10/05/22 clavulanate 125 mg tablet (Augmentin) metronidazole 500 mg tablet 500 mg PO BID #14 tabs 10/05/22 Allergies Allergy/AdvReac Type Severity Reaction Status Date / Time No Known Allergies Allergy Verified 09/29/22 10:04 [facility] Disclaimer: The information contained in this section may have been updated after the patient was seen, as this information can be updated by other users. Medical History (Updated 12/26/22 @ 19:03 by Bishnu العلي MD) No significant family history Surgical History (Updated 09/29/22 @ 10:11 by ALEX Culp) H/O breast surgery History of salpingectomy Social History (Updated 09/29/22 @ 10:08 by ALEX Culp) Smoking Status: Former smoker alcohol intake: never substance use type: denies use current occupational status: other Travel in the last 8 weeks: None household members: family housing: house current occupati
[2022-12-26 19:00] VITALS: BP 106/72; PULSE 60; RESP 16; O2SAT 97
[2022-12-26 19:03] LABS: Basophils % 0.5 % (0.1-2.0); Eosinophils # 0.3 K/mm3 (0.0-0.4); Eosinophils % 2.6 % (0.1-12.0); Hematocrit 41.9 % (37.0-47.0); Hemoglobin 13.8 g/dL (12.2-16.2); Lymphocytes # 3.2 K/mm3 (0.7-4.5); Lymphocytes % 33.5 % (10-50); Mean Corpuscular HGB Conc 32.9 g/dL (31.8-35.4); Mean Corpuscular Volume 91.4 fl (81-99); Mean Platelet Volume 8.8 fl (7.4-10.4); Monocytes # 0.6 K/mm3 (0.1-1.0); Monocytes % 6.4 % (1.7-9.3); Neutrophils # 5.4 K/mm3 (1.8-7.8); Platelet Count 348 K/mm3 (142-424); Red Blood Count 4.59 M/mm3 (4.20-5.40); White Blood Count 9.4 K/mm3 (4.8-10.8)
[2022-12-26 19:04] LABS: Chloride 107 mmol/L (98-107); Potassium 3.9 mmoL/L (3.5-5.1); Sodium 144 mmol/L (136-145)
[2022-12-26 19:07] LABS: Alanine Aminotransferase 19 U/L (12-78); Albumin Level 3.9 g/dl (3.5-5.0); Albumin/Globulin Ratio 1.4 (1.1-1.8); Alkaline Phosphatase 81 U/L (38-126); Anion Gap 12.9 mEq/L (5-15); Aspartate Amino Transferase 22 U/L (14-36); Bilirubin,Total 0.3 mg/dl (0.2-1.3); Blood Urea Nitrogen 7 mg/dl (7-17); Calcium 9.4 mg/dl (8.4-10.2); Carbon Dioxide 28 mmol/L (22.0-30.0); Creatinine Clearance Estimated 96 mL/min (50-200); Estimated Glomerular Filt Rate 69 ml/min (>60); GFR (African American) 83 ML/MIN (>60); Globulin 2.8 g/dL (1.3-3.2); Glucose 87 mg/dl (74-100); Total Protein,Serum 6.7 g/dl (6.3-8.2)
[2022-12-26 19:22] LABS: HCG Qualitative, Serum Negative (Negative)
[2022-12-26 20:53] VITALS: BP 122/77; PULSE 68; RESP 16; TEMP 36.8; O2SAT 98
== END 2022-12-26 20:55 | disposition home or self-care (01) ==
PROVIDERS: Emergency Provider Student in an Organized Health Care Education/Training Program; PCP Nurse Practitioner Family
DX: R51.9 Headache, unspecified (principal); R55 Syncope and collapse; R00.1 Bradycardia, unspecified; Z87.891 Personal history of nicotine dependence
CPT/HCPCS: 70470; 80053; 84703; 85025; 93005; 96361; 96374; 96375; 99285

== ENCOUNTER → 2023-01-05 16:09 | Outpatient (CLI) | payer BC, SELFPAY ==
--- NOTE | 2023-01-05 16:13 | MR_ITS ---
PROCEDURE INFORMATION: Exam: MR Head Without and With Contrast Exam date and time: 01/05/2023 4:23 PM Age: 42 years old Clinical indication: Pain; Patient HX: Right sided headaches x 23 days; Additional info: Acute intractable headache, unspecified headache type TECHNIQUE: Imaging protocol: Magnetic resonance imaging of the head without and with contrast. Contrast material: PROHANCE; Contrast volume: 15 ml; Contrast route: IV; COMPARISON: CT HEAD/BRAIN WO/W CON 12/26/2022 7:35 PM FINDINGS: Brain: No brain parenchymal signal abnormality. No abnormal parenchymal or leptomeningeal enhancement. No acute infarct. No mass effect or midline shift. No extra-axial collection. No acute intracranial hemorrhage. Basal cisterns are patent. Cerebral ventricles: Normal. No ventriculomegaly. Bones/joints: Unremarkable. Paranasal sinuses: Normal as visualized. No acute sinusitis. Mastoid air cells: Normal as visualized. No mastoid effusion. Orbital cavities: Unremarkable. Soft tissues: Unremarkable. IMPRESSION: Unremarkable exam.
== END ==
LOC: RAD 16:09
PROVIDERS: PCP Internal Medicine Adolescent Medicine; Visit Provider Nurse Practitioner Family
DX: R51.9 Headache, unspecified (principal)
CPT/HCPCS: 70553; A9576

== ENCOUNTER → 2023-02-23 12:46 | Outpatient (CLI) | payer BC, SELFPAY ==
[2023-02-23 12:52] LABS: MANUAL DIFFERENTIAL MANUAL DIFFERENTIAL (MANUAL DIFF)
--- NOTE | 2023-02-23 13:06 | CT_ITS ---
FINAL REPORT TECHNIQUE: Axial images through the temporal bones was performed with and without contrast. Coronal reformatted images were obtained and reviewed. This study was performed with techniques to keep radiation doses as low as reasonably achievable (ALARA). Individualized dose reduction techniques using automated exposure control or adjustment of mA and/or kV according to the patient's size were employed. CLINICAL HISTORY: headache for 72 hours. tingling, numbness FINDINGS: Right temporal bone: The internal auditory canal has an unremarkable appearance. The inner ear structures are unremarkable. The external auditory canal has an unremarkable appearance. No abnormality is identified of the middle ear cavity. The ossicles are intact. The mastoid air cells and mastoid antrum have an unremarkable appearance. No bony mass is identified. Left temporal bone: The internal auditory canal has an unremarkable appearance. The inner ear structures are unremarkable. The external auditory canal has an unremarkable appearance. No abnormality is identified of the middle ear cavity. The ossicles are intact. The mastoid air cells and mastoid antrum have an unremarkable appearance. No bony mass is identified. IMPRESSION: Unremarkable temporal bones. Reviewed, Interpreted and Dictated by Sandoval Guzman III, MD Transcribed by Haley Alas Authenticated and [facility]
--- NOTE | 2023-02-23 13:06 | CT_ITS ---
FINAL REPORT TECHNIQUE: Thin section axial CT with IV contrast supplemented with multiplanar reconstruction under CT angiogram protocol. 3-D reconstructions were performed. This study was performed with techniques to keep radiation doses as low as reasonably achievable (ALARA). Individualized dose reduction techniques using automated exposure control or adjustment of mA and/or kV according to the patient''s size were employed. CLINICAL HISTORY: headache x 72 hours, tingling, numbness FINDINGS: CTA HEAD/BRAIN No aneurysm is seen. Major intracranial vessels are patent without significant stenosis. IMPRESSION: No significant stenosis identified. CT HEAD/BRAIN W/O CONTRAST There is no evidence of intracranial mass or hemorrhage. The ventricles are normal in size. There is no midline shift. No extra-axial fluid collection is identified. No skull abnormality seen on the bone window images. Impression: No acute intracranial process. Reviewed, Interpreted and Dictated by Sandoval Guzman III, MD Transcribed by Haley Alas Authenticated and [facility]
[2023-02-23 13:22] LABS: Basophils % 0.4 % (0.1-2.0); Eosinophils # 0.3 K/mm3 (0.0-0.4); Hematocrit 39.4 % (37.0-47.0); Hemoglobin 13.5 g/dL (12.2-16.2); Lymphocytes # 2.3 K/mm3 (0.7-4.5); Lymphocytes % 26.2 % (10-50); Mean Corpuscular HGB Conc 34.3 g/dL (31.8-35.4); Mean Corpuscular Hemoglobin 31.1 pg (27.0-31.2); Mean Corpuscular Volume 90.7 fl (81-99); Mean Platelet Volume 8.3 fl (7.4-10.4); Monocytes # 0.3 K/mm3 (0.1-1.0); Monocytes % 3.5 % (1.7-9.3); Neutrophils # 5.9 K/mm3 (1.8-7.8); Neutrophils % 66.9 % (37.0-80.0); Platelet Count 321 K/mm3 (142-424); Red Blood Count 4.35 M/mm3 (4.20-5.40); Red Cell Distribution Width 13.2 % (11.5-17.5); White Blood Count 8.8 K/mm3 (4.8-10.8)
[2023-02-23 13:33] LABS: Anion Gap 13.1 mEq/L (5-15); Blood Urea Nitrogen 12 mg/dl (7-17); Calcium 8.9 mg/dl (8.4-10.2); Carbon Dioxide 26 mmol/L (22.0-30.0); Chloride 103 mmol/L (98-107); Estimated Glomerular Filt Rate 79 ml/min (>60); GFR (African American) 95 ML/MIN (>60); Glucose 130 mg/dl (74-100); Potassium 4.1 mmoL/L (3.5-5.1); Sodium 138 mmol/L (136-145)
[2023-02-23 13:39] LABS: C-Reactive Protein 0.6 mg/L (0-4)
[2023-02-23 14:02] LABS: Erythrocyte Sedimentation Rate 5 mm/hr (0-20)
[2023-02-23 14:16] LABS: Eosinophils % 2 % (0-3); Lymphocytes % 30 % (10-50); Monocytes % 3 % (2-9); Neutrophils % 65 % (42-76); Platelet Estimate Normal; RBC Morphology Normal; Total Cells Counted 100
== END ==
PROVIDERS: PCP Nurse Practitioner Family; Visit Provider Nurse Practitioner Family
DX: R51.9 Headache, unspecified (principal); H92.11 Otorrhea, right ear; M79.602 Pain in left arm; R20.0 Anesthesia of skin
CPT/HCPCS: 36415; 70482; 70496; 80048; 85007; 85014; 85018; 85048; 85049; 85651; 86140; Q9967

== ENCOUNTER → 2023-02-25 15:50 | Outpatient (CLI) | payer BC, SELFPAY ==
--- OUTSIDE RECORDS SUMMARY | 2023-02-25 15:53 | XMS_ITS | Continuity of Care Document ---
Author Name Unknown Organization [facility] Address [address] [address] Phone Care Team Providers Care Hardware Assembler Name Role Phone Arturo VALENZUELA, Angel Unavailable Unavailable Allergies, Adverse Reactions, Alerts Substance Reaction Status Criticality No Known Allergies Active No Inform ation Medications Medication Instructions Dosage Effective Dates (start - stop) Status Comments diclofenac 1 % topical gel apply 2-4 gram by topical route 3-4 times every day to the affected area(s) prn as needed - Active Skyrizi 75 mg/0.83 mL subcutaneous syringe inject (150MG) by subcutaneous route every 12 weeks as 2 consecutive 75 mg injections in the abdomen, thigh, or upper arm; rotate sites - Active Taltz Autoinjector 80 mg/mL subcutaneous inject 1 milliliter by subcutaneous route every 4 weeks in the abdomen, thigh, or upper arm rotating injection sites 80 MG - No Longer Active fluocinonide 0.05 % topical cream apply by topical route 2 times every day to the affected area(s) 0.00 - No Longer Active Procedures Procedure Date Office Visit Level III Office Visit Level IV O
--- NOTE | 2023-02-25 15:54 | XR_ITS ---
FINAL REPORT TECHNIQUE: 5 views CLINICAL HISTORY: PARAESTHESIA OF UPPER EXTREMITY COMPARISON: None FINDINGS: There is no fracture present. There is no malalignment. Mild degenerative changes present in the cervical spine. There is mild left C6-7 neural foraminal narrowing present. IMPRESSION: No acute process. Mild degenerative change as described above. Reviewed, Interpreted and Dictated by Sandoval Guzman III, MD Transcribed by Seble Valle Authenticated and [facility]
== END ==
PROVIDERS: PCP Nurse Practitioner Family; Visit Provider Nurse Practitioner Family
DX: R20.2 Paresthesia of skin (principal)
CPT/HCPCS: 72050

== ENCOUNTER → 2023-03-09 14:01 | Outpatient (POV) | payer BC, SELFPAY ==
--- OUTSIDE RECORDS SUMMARY | 2023-03-09 14:04 | XMS_ITS | Continuity of Care Document ---
Author Name Unknown Organization [facility] Address [address] [address] Phone Care Team Providers Care Client Advisor Name Role Phone Arturo VALENZUELA, Angel Unavailable [...]
[2023-03-09 14:49] VITALS: BP 142/80; PULSE 80; RESP 20; O2SAT 99; BMI 26.9
--- NOTE | 2023-03-09 15:23 | EXP.PAIN.OV ---
HPI Data of Consult Patient: new to practice Consult date: 03/09/23 Requesting Physician: Cintia Rizvi APRN Primary Care Provider: Josie Kinney APRN Consult Narrative Reason for consult: Left arm pain, headache, neck pain History of present illness: Ms. Rodriguez is a 42 year old female who presents today as a new patient. She is a referral from Josie Kinney's office. Today she rates her pain a 7 out of 10. Patient states her pain is all in her head with headaches and occasional migraines as well as neck pain with left shoulder and arm pain. Patient states this initially started back in November with a headache and progressively worsened over time. Patient denies any specific trauma or injury that initially started her symptoms. She stated that the left arm pain started approximately 6 weeks later. Patient does describe this as an aching, dull pressure sensation with a throbbing that is primarily on the right side of her head. She does have some numbness and tingling into her left arm. Patient has tried Tylenol and other medications along with ice with minimal relief. Patient has not had any recent physical therapy. Patient has a nerve conduction study coming up in April as well as an MRI of her neck scheduled coming up. Patient is also planned for a spinal tap with contrast. Patient was tried on amitriptyline however that caused suicidal thoughts and she had to discontinue this medication. Patient is currently managed with gabapentin 200 mg at night however she states she has not noticed any additional improvement. Patient does take Excedrin for her headaches. She is interested in any help we may be able to provide. CC: Cintia Rizvi APRN [facility] Disclaimer: The information contained in this section may have been updated after the patient was seen, as this information can be updated by other users. Medical History (Updated 03/09/23 @ 15:27 by Cintia Rizvi APRN) No significant family history Surgical History H/O breast surgery History of salpingectomy Family History (Updated 03/09/23 @ 14:56 by Kate Warren RN) Other No significant family history Social History (Updated 03/09/23 @ 14:56 by Kate Warren RN) Smoking Status: Former smoker tobacco type: cigarettes packs per day: 1 alcohol intake: never substance use type: denies use current occupational status: other Travel in the last 8 weeks: None household members: family housing: house current occupation: teacher caffeine: Yes Review of Systems Review of Systems Review of systems:: pertinent systems reviewed and negative unless documented below Review of systems (narrative): Review of Systems: General: No recent weight changes, no fever, no sleep disturbances Respiratory: No cough, no shortness of air, no recurring pulmonary infections Cardiovascular/peripheral vascular: No chest pain, no palpitations, no edema, no shortness of breath Gastrointestinal: No new onset incontinence, normal bowel movements reported Genitourinary: No new onset incontinence Musculoskeletal: Headache, neck pain, left arm pain Psychiatric: [Normal mood/affect] Neurological: [Denies weakness in extremities], [denies balance issues] Meds Home Medications and Allergies Home Medications Medication Instructions Recorded Confirmed Type valacyclovir 1 gram tablet 1,000 mg PO PRN 09/29/22 02/23/23 History gabapentin 100 mg capsule 100 mg PO HS 03/08/23 03/08/23 History prednisone 20 mg tablet 10 mg PO DAILY 03/08/23 03/08/23 History New Prescriptions to Start Prescriptions: Allergies Allergy/AdvReac Type Severity Reaction Status Date / Time No Known Allergies Allergy Verified 03/08/23 11:50 Objective Vital signs: Pulse Resp BP Pulse Ox O2 Del Method 80 20 142/80 H 99 Room Air 03/09/23 14:49 03/09/23 14:49 03/09/23 14:49 03/09/23 14:49 03/09/23 14:49
== END ==
PROVIDERS: PCP Nurse Practitioner Family; Visit Provider Nurse Practitioner Family
DX: M50.10 Cervical disc disorder with radiculopathy, unspecified cervical region (principal); M54.81 Occipital neuralgia; M79.602 Pain in left arm
CPT/HCPCS: 99202; G0463

== ENCOUNTER 2023-03-22 12:03 | Day surgery (SDC) | payer BC, SELFPAY ==
--- OUTSIDE RECORDS SUMMARY | 2023-03-22 12:06 | XMS_ITS | Continuity of Care Document ---
Author Name Unknown Address [address], [place] [id number] Organization [facility] Phone Care Team Providers Care Land[employer] Field Technician Name Role Phone KALEB WAN Unavailable SABINA DAMON Primary Attending [phone] SABINA DAMON Primary Care SABINA DAMON Admitting TREATMENT PLAN DISCHARGE MEDICATIONS Status RXNORM Medication Dose Route Frequency Dates Comments U pdated By Patient discharge medication information is not available. PATIENT OPEN ORDERS Code System Description Frequency Occurrences Priority [place] [id number] [facility] Spine Cervical MRI WO contrast ONE TIME 0 Routine March 16, 2023 8:42:00 PM [facility] MARISOL Younger ASSEMBLER CARBON BRUSHES [id number] on March 16, 2023 9:17:00 PM [facility] SCHEDULED PROCEDURES Code System Description Status Scheduled Date Upd ated By Patient scheduled procedure information is not available. MEDICATIONS HOME MEDICATIONS Status RXNORM Medication Dose Route Frequency Dates Comments R eported By Updated By Drug Treatment Unknown DISCHARGE MEDICATIONS Status RXNORM Medication Dose Route Frequency Dates Comments Physic ottoniel Updated By No Discharge Medication Info rmation Available INPATIENT MEDICATIONS Status RXNORM Medication Dose Route Frequency Rate Quantity Dates Comments Physician Updated By No Inpatient
--- OUTSIDE RECORDS SUMMARY | 2023-03-22 12:06 | XMS_ITS | Continuity of Care Document ---
Author Name Unknown Address [address], [place] [id number] Organization [facility] Phone Care Team Providers Care Cloth Sponger Name Role Phone KALEB WAN Unavailable SABINA DAMON Primary Attending SABINA DAMON Primary Care SABINA DAMON Admitting RESULTS Patient: KIKE DOTSON Date of : 1980 6 LABORATORY RESULTS Information is not available LABORATORY NARRATIVE RESULTS Information is not available RADIOLOGY RESULTS ORDER 100: MRI SPINE CERVICL WO (LOINC: 02248-5) ORDER DATE: March 16, 2023 8:42:00 PM [facility] PATHOLOGY NARRATIVE RESULTS Information is not available MICROBIOLOGY RESULTS No Micro Labs/Results Exist for Patient BLOOD ADMIN RESULTS Information is not available MEDICATIONS HOME MEDICATIONS Status RXNORM Medication Dose Route Frequency Dates Comments R eported By Updated By Drug Treatment Unknown DISCHARGE MEDICATIONS Status RXNORM Medication Dose Route Frequency Dates Comments Physic ottoniel Updated By No Discharge Medication Info rmation Available INPATIENT MEDICATIONS Status RXNORM Medication Dose Route Frequency Rate
--- OUTSIDE RECORDS SUMMARY | 2023-03-22 12:06 | XMS_ITS | Continuity of Care Document ---
Author Name Unknown Organization [facility] Address [address] [address] Phone Care Team Providers Care Heat And Frost Insulator Name Role Phone Arturo VALENZUELA, Angel Unavailable [...]
[2023-03-22 12:10] VITALS: BP 126/69; PULSE 66; RESP 16; TEMP 36.4; O2SAT 99; BMI 26.9
[2023-03-22 12:15] VITALS: BP 125/69; PULSE 78; RESP 18; O2SAT 97; O2SAT 98
[2023-03-22 12:22] VITALS: BP 112/55; PULSE 56; RESP 18; O2SAT 99
--- NOTE | 2023-03-22 12:23 | P.PCN_ITS ---
Procedure Date: 03/22/23 Time: 12:00 Anesthesiologist:: Glenroy Forrest CRNA Complications:: None Pre-procedure Diagnosis:: Chronic headache. Post-procedure Diagnosis:: Same. Indications for Procedure:: Patient is a very pleasant 42-year-old female comes our clinic today for a right occipital nerve block. Patient describes right occipital parietal headaches as constant, dull, aching. Patient will be visiting neurology tomorrow at the [facility] for consultation. Procedure Details:: Details of the procedure explained to the patient. The patient taken to procedure room placed in sitting position. The area over the right occipital was cleaned using chlorhexidine as a cleansing solution. Using a 25-gauge inch and half needle the right occipital nerve area was saturated after negative aspiration with 8 cc of a solution containing 0.25% Marcaine +1% lidocaine and 20 mg of Depo-Medrol. Patient tolerated procedure without difficulty. There are no complications. Plan and Disposition:: Patient was discharged without incident.
== END 2023-03-22 12:22 | disposition home or self-care (01) ==
PROVIDERS: PCP Nurse Practitioner Family; Visit Provider Nurse Anesthetist, Certified Registered
DX: R51.9 Headache, unspecified (principal)
CPT/HCPCS: 64405; J1040

== ENCOUNTER → 2023-04-01 15:50 | Outpatient (CLI) | payer BC, SELFPAY | PROVIDERS: PCP Nurse Practitioner Family; Visit Provider Nurse Practitioner Family | DX: R00.1 Bradycardia, unspecified (principal) | CPT/HCPCS: 93225; 93226 ==

== ENCOUNTER → 2023-04-19 08:44 | Outpatient (POV) | payer BC, SELFPAY ==
[2023-04-19 08:51] VITALS: BP 123/75; PULSE 56; RESP 18; O2SAT 96; BMI 26.9
--- NOTE | 2023-04-19 09:42 | EXP.PAIN.SOA ---
[facility] Pain Management SOAP Note Subjective:: Patient is a very pleasant 42-year-old female comes our clinic today for follow-up visit after receiving right occipital nerve block. Patient continues to have chronic headaches that she describes as constant, dull, aching, throbbing. Patient also continues having clear fluid draining from the right ear. She will be consulting with ENT specialty at the [facility] in a couple of weeks. Objective:: Patient is awake alert [place] x 3. In no acute distress. Flexion-extension cervical lumbar spine normal. Deep tendon reflexes upper and lower extremities normal. Motor strength upper and lower extremities normal. There is no gross sensory deficit. Gait is normal. Assessment:: Right occipital neuralgia. Chronic right otitis media. Plan:: Patient will continue seeing us on a as needed basis. She will be having consultation at the [facility] with ENT specialty. [facility] Disclaimer: The information contained in this section may have been updated after the patient was seen, as this information can be updated by other users. Medical History (Updated 03/29/23 @ 16:25 by Kirsten Moore APRN) No significant family history Tension headache Surgical History H/O breast surgery History of salpingectomy Family History Other No significant family history Social History Smoking Status: Former smoker tobacco type: cigarettes packs per day: 1 alcohol intake: never substance use type: denies use current occupational status: other Travel in the last 8 weeks: None household members: family housing: house current occupation: teacher caffeine: Yes
== END ==
LOC: SC.PAIN 08:45
PROVIDERS: PCP Nurse Practitioner Family; Visit Provider Nurse Anesthetist, Certified Registered
DX: M54.81 Occipital neuralgia (principal); H66.91 Otitis media, unspecified, right ear
CPT/HCPCS: 99212; G0463

== ENCOUNTER 2023-09-21 16:00 | Outpatient (RCR) | payer BC, SELFPAY ==
--- NOTE | 2023-09-07 14:56 | HMH.PTOPEV ---
PT Outpatient Evaluation Rehab PT Outpatient Evaluation Start: 09/01/23 15:44 Freq: Status: Active Protocol: Document 08/11/23 17:00 NOAH (Rec: 09/07/23 14:56 NOAH [id number]) E-signed By Tony Mccloud, PT Outpatient Therapy Subjective History Subjective History Patient is a 42 year old female presenting to outpatient PT with reports of chronic CS pain with associated heaches. Symptoms of insidious onset starting approx 1 year ago. Most recent imaging indicates mild degenerative changes. No other comorbidities to report. Patient referred for suboccipital neuralgia. New diagnosis of cancer in past 12 No months? Chief Complaint Pain,Stiff Symptom Type Ache,Burning Symptoms Relieved By Rest/Positioning Symptoms Aggravated By Physical Activity,Lifting Prior Functional Limitations None Current Functional Limitations Reaching,Lifting,Housework Symptom Description Intermittent Level of pain today (0-10) 0 Pain scale - at its best (0-10) 0 Pain scale - at its worst (0-10) 5 Cervical Eval Palpation Cervical Muscles R Suboccipital,L Suboccipital Posture Head/C-Spine Posture Sitting Position C-Spine Flattened Head/C-Spine Posture Standing Position C-Spine Flattened Flexibility Deficits Upper Trapezius Muscle Length (R) Moderate Tightness,(L) Moderate Tightness Pectoralis Minor Muscle Length (R) Moderate Tightness,(L) Moderate Tightness Passive Joint Mobility Cervical PIVM WNL: R OA L OA R AA L AA R C2/3 L C2/3 R C3/4 L C3/4 R C4/5 L C4/5 R C5/6 L C5/6 R C6/7 L C6/7 R C7/T1 L C7/T1 AROM Cervical Spine Extension Active Range of 64 Motion (degrees) Cervical Spine Flexion Active Range of 55 Motion (degrees) Cervical Spine Right Lateral Flexion 34 Active Range of Motion (degrees) Cervical Spine Left Lateral Flexion 40 Active Range of Motion (degrees) Cervical Spine Right Rotation Active 54 Range of Motion (degrees) Cervical Spine Left Rotation Active 42 Range of Motion (degrees) MMT Bilateral Deltoid (C5) 5 Normal Biceps Brachii Strength Grade 5 Normal Wrist Extension Strength Grade 5 Normal Triceps Brachii Strength Grade 5 Normal Wrist Flexion Strength Grade 5 Normal Extensor Pollicis Longus Strength Grade 5 Normal Finger Abduction Strength Grade 5 Normal Special Test C-Spine Foraminal Compression ([place]) Negative Left,Negative Right Test C-Spine Foraminal Distraction Test Negative Neck Disability Index Neck Disability Index Section 1: Pain Intensity The pain is very mild at moment Section 2: Personal Care (washing, I can look after myself dressing, etc.) normally without causing extra pain Section 3: Lifting I can lift heavy weights without extra pain Section 4: Reading I can read as much as I want to with no pain in my neck Section 5: Headaches I have moderate headaches, which come infrequently Section 6: Concentration I can concentrate fully when I want to with no difficulty Section 7: Work I can do as much work as I want to Section 8: Driving I can drive my car as long as I want with slight pain in my neck Section 9: Sleeping I have no trouble sleeping Section 10: Recreation I am able to engage in all my recreation activities with no neck pain NDI Score 4 Outpatient Therapy Assessment Impairments Problems/Impairmments Palpation Tenderness,Impaired Range of Motion,Impaired Lifting,Impaired Household Care,Subjective C/O Pain Prognosis Rehab Potential Good Clinical Impression Consistent with Diagnosis Yes Short Term Goals Number of Weeks 2 Decrease Subjective C/O Pain Yes 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 Number of Weeks 4-6 Decreased Palpation Tenderness Yes: 1/4 Increase Range of Motion Yes: WNL Restore Ability to Lift Objects to Yes: 10 lb without difficulty Shoulder Level Restore Ability to Lift Objects Overhead Yes: Improve Ability For Household Care Yes Decrease Subjective C/O Pain Yes: 2/10 at worst Outpatient Therapy Plan of Care Treatment Plan May Include Therapeutic Exercise Including Home Yes Exercise Program Manual Therapy Techniques Yes Neuromuscular Re-education Yes Therapeutic Activities to Return to Yes Previous Functional/Work Level ADL/Self Care Education Yes Mechanical Traction Yes Dry Needling Yes Thermal Modalities Yes Electrical Stimulation Yes Ultrasound/Phonophoresis Yes Iontophoresis Yes Massage Yes Eval/Re-Eval Yes Frequency Times per week 2 Duration Number of Weeks 4-6 Addendums This patient is a candidate for social No or vocational rehab? Patient/Guardian verbally acknowledges Yes understanding of treatment program and consents to further treatment? Patient/Guardian verbally acknowledges Yes understanding of diagnosis, prognosis and goals for treatment? Eval Complexity PT Charges 43475 - Low Complexity Shoulder/Elbow Eval Shoulder Objective Measurements Elbow Objective Measurements PHYSICIAN CERTIFICATION: I certify the specified therapy services for Patricia Arlene Dublin are required, authorized, and reviewed every 30 days.
== END 2023-09-21 17:30 | disposition home or self-care (01) ==
LOC: PT 16:00
PROVIDERS: Visit Provider Internal Medicine Adolescent Medicine
DX: M54.2 Cervicalgia (principal); M54.81 Occipital neuralgia
CPT/HCPCS: 97010; 97035; 97110; 97163

== ENCOUNTER 2023-11-04 11:15 | Outpatient (CLI) | payer BC, SELFPAY ==
[2023-11-04 11:53] LABS: Basophils # 0.1 K/mm3 (0-0.2); Basophils % 0.6 % (0.1-2.0); Eosinophils # 0.4 K/mm3 (0.0-0.4); Eosinophils % 4.2 % (0.1-12.0); Hematocrit 41.9 % (37.0-47.0); Hemoglobin 14.2 g/dL (12.2-16.2); Lymphocytes # 2.8 K/mm3 (0.7-4.5); Lymphocytes % 31.5 % (10-50); Mean Corpuscular HGB Conc 33.9 g/dL (31.8-35.4); Mean Corpuscular Hemoglobin 30.5 pg (27.0-31.2); Mean Corpuscular Volume 90.1 fl (81-99); Mean Platelet Volume 8.7 fl (7.4-10.4); Monocytes # 0.5 K/mm3 (0.1-1.0); Monocytes % 6.1 % (1.7-9.3); Neutrophils % 57.6 % (37.0-80.0); Platelet Count 357 K/mm3 (142-424); Red Blood Count 4.65 M/mm3 (4.20-5.40); Red Cell Distribution Width 13.6 % (11.5-17.5); White Blood Count 8.7 K/mm3 (4.8-10.8)
[2023-11-04 13:30] LABS: Alanine Aminotransferase 22 U/L (12-78); Albumin Level 4.3 g/dl (3.5-5.0); Albumin/Globulin Ratio 1.6 (1.1-1.8); Alkaline Phosphatase 75 U/L (38-126); Anion Gap 8.7 mEq/L (5-15); Aspartate Amino Transferase 33 U/L (14-36); Bilirubin,Total 0.6 mg/dl (0.2-1.3); Blood Urea Nitrogen 13 mg/dl (7-17); Calcium 9.3 mg/dl (8.4-10.2); Carbon Dioxide 27 mmol/L (22.0-30.0); Chloride 106 mmol/L (98-107); Chol/HDL Ratio 3.8 (1-3.5); Cholesterol 209 mg/dl (140-200); Estimated Glomerular Filt Rate 68 ml/min (>60); GFR (African American) 83 ML/MIN (>60); Globulin 2.7 g/dL (1.3-3.2); Glucose 94 mg/dl (74-100); HDL Cholesterol 55 mg/dl (40-60); Potassium 4.7 mmoL/L (3.5-5.1); Sodium 137 mmol/L (136-145); Triglycerides 129 mg/dl (30-150); VLDL Cholesterol 26 mg/dL (0-40)
[2023-11-04 13:41] LABS: Direct LDL Cholesterol 103.17 mg/dL (100-129)
[2023-11-05 03:37] LABS: FSH 4.1 mIU/mL (.); LH 5.6 mIU/mL (.)
== END 2023-11-04 23:59 | disposition home or self-care (01) ==
LOC: LAB 11:16
PROVIDERS: PCP Nurse Practitioner Family; Visit Provider Nurse Practitioner Obstetrics & Gynecology
DX: Z01.419 Encounter for gynecological examination (general) (routine) without abnormal findings (principal)
CPT/HCPCS: 36415; 80053; 80061; 83001; 83002; 85025

== ENCOUNTER 2024-01-31 11:01 | Outpatient (CLI) | payer BC, SELFPAY ==
--- NOTE | 2024-01-31 11:01 | MM_ITS ---
PROCEDURE INFORMATION: Exam: MG Bilateral Screening 3D Mammography Exam date and time: 01/31/2024 10:45 AM Age: 43 years old Clinical indication: Screening. No family history of breast cancer. TECHNIQUE: Imaging protocol: Bilateral Screening tomosynthesis and 2D mammography including computer-aided detection (CAD) when performed. COMPARISON: 1. MG MM DIG SCREENING MAMM BI W/CAD 09/07/2022 10:20 AM 2. MG MM NEEDLE LOC LT 07/03/2021 10:52 AM 3. MG MM CLIP PLACEMENT LT 06/09/2021 11:50 AM 4. MG MM DIG SCREENING MAMM BI W/CAD 05/01/2021 11:07 AM FINDINGS: MAMMOGRAPHY: Breast composition: The breasts are heterogeneously dense, which may obscure small masses. Mass: None. Architectural distortion: None. Calcifications: No suspicious calcifications. Asymmetric density: None. Skin thickening: None. Axillary adenopathy: None. Other: Stable surgical clips in the left upper outer quadrant posteriorly. IMPRESSION: No mammographic evidence of malignancy. Annual screening is recommended unless otherwise clinically indicated. ASSESSMENT: BI-RADS Category 2: Benign.
== END 2024-01-31 23:59 | disposition home or self-care (01) ==
LOC: RAD 11:01
PROVIDERS: PCP Nurse Practitioner Family; Visit Provider Nurse Practitioner Obstetrics & Gynecology
DX: Z12.31 Encounter for screening mammogram for malignant neoplasm of breast (principal)
CPT/HCPCS: 77063; 77067

== ENCOUNTER 2024-02-28 15:26 | Outpatient (CLI) | payer BC, SELFPAY ==
--- NOTE | 2024-02-28 15:29 | US_ITS ---
PROCEDURE: US TRANSVAGINAL CLINICAL INDICATION: RLQ ABD PAIN COMPARISON: CT CT ABDOMEN PELVIS WO/W CON from 01/22/[address] ABDOMEN PELVIS WO CON from 05/24/2022 FINDINGS: Transvaginal sonographic images of the pelvis were obtained. UTERUS: 8.8 cm x 6.0cmx 5.0cm anteverted with a combined endometrial thickness of 12mm. The endometrium is trilaminar. There are several small nabothian cysts within the cervix. LEFT OVARY: 2.7 cmx1.8 cmx1.8cm with a volume of 4.6ml. Are several small follicles in the left ovary. RIGHT OVARY: 3.2cmx 2.7 cmx2.9 cm with a volume of 13.4ml. There is a follicle in the right ovary measuring 2.4 cm x 2.8 cm x 2.7 cm. There are several small peripheral follicles. Both ovaries are seen and appear normal. Doppler flow to both ovaries are seen. There is no fluid in the cul-de-sac. IMPRESSION: 1. Anteverted uterus normal in shape and size. The endometrium is thickened and trilaminar, likely premenstrual. 2. Both ovaries are seen and appear normal. The right ovary has a dominant follicle measuring 2.8 cm. 3. No fluid in the cul-de-sac. Dictated by: Lio Vergara MD 02/28/2024 16:13 Lio Vergara MD in OV 02/28/2024 16:13
== END 2024-02-28 23:59 | disposition home or self-care (01) ==
LOC: RAD 15:27
PROVIDERS: PCP Nurse Practitioner Family; Visit Provider Nurse Practitioner Family
DX: R10.31 Right lower quadrant pain (principal)
CPT/HCPCS: 76830

== ENCOUNTER 2024-02-29 12:09 | Emergency (ER) | payer BC, SELFPAY ==
[2024-02-29 12:10] VITALS: BP 134/69; PULSE 70; RESP 20; TEMP 36.8; O2SAT 95; BMI 29.0
[2024-02-29 12:56] LABS: Microscopic, Urine URINE MICROSCOPIC (MICROSCOPIC)
--- NOTE | 2024-02-29 12:56 | CT_ITS ---
PROCEDURE INFORMATION: Exam: CT Abdomen And Pelvis With Contrast Exam date and time: 02/29/2024 1:48 PM Age: 43 years old Clinical indication: Abdominal pain; Additional info: Rlq abd pain TECHNIQUE: Imaging protocol: Computed tomography of the abdomen and pelvis with contrast. Total images: 308 Radiation optimization: All CT scans at this facility use at least one of these dose optimization techniques: automated exposure control; mA and/or kV adjustment per patient size (includes targeted exams where dose is matched to clinical indication); or iterative reconstruction. Contrast material: ISOVUE; Contrast volume: 75 ml; Contrast route: IV; COMPARISON: CT ABDOMEN PELVIS WO CON 05/24/2022 9:52 PM FINDINGS: Lungs: Granulomatous calcification noted within both lung bases. Liver: Normal. No mass. Gallbladder and biliary ducts: Status post cholecystectomy. Pancreas: Normal. No ductal dilation. Spleen: Normal. No splenomegaly. Adrenal glands: Normal. No mass. Kidneys and ureters: No renal calcifications or obstructive uropathy. Stomach and bowel: Large amount of stool is present throughout the colon. Appendix: No evidence of appendicitis as imaged. Intraperitoneal space: Normal. No significant fluid collection. Vasculature: Unremarkable. No abdominal aortic aneurysm. Lymph nodes: No mesenteric or retroperitoneal lymphadenopathy. Urinary bladder: Unremarkable as visualized. Reproductive: Unremarkable as visualized. Bones/joints: The lumbar spine demonstrates mild degenerative changes at multiple levels. Soft tissues: A small umbilical hernia is present without inflammation. IMPRESSION: 1. No evidence of appendicitis as imaged. 2. No renal calcifications or obstructive uropathy. 3. No mesenteric or retroperitoneal lymphadenopathy.
[2024-02-29 13:00] LABS: Albumin Level 4.6 g/dl (3.5-5.0); Appearance,Urine CLEAR (Clear); Basophils # 0.1 K/mm3 (0-0.2); Basophils % 0.7 % (0.1-2.0); Bilirubin,Urine Negative (Negative); Blood, Urine TRACE-I (Negative); Chloride 104 mmol/L (98-107); Color,Urine YELLOW (Yellow); Eosinophils # 0.2 K/mm3 (0.0-0.4); Eosinophils % 1.8 % (0.1-12.0); Glucose,Urine (UA) Negative (Negative); Hematocrit 41.2 % (37.0-47.0); Hemoglobin 14.7 g/dL (12.2-16.2); Ketones,Urine Negative (Negative); Leukocyte Esterase,Urine TRACE (Negative); Lymphocytes # 2.3 K/mm3 (0.7-4.5); Mean Corpuscular HGB Conc 35.6 g/dL (31.8-35.4); Mean Corpuscular Hemoglobin 30.7 pg (27.0-31.2); Mean Platelet Volume 8.3 fl (7.4-10.4); Monocytes # 0.6 K/mm3 (0.1-1.0); Monocytes % 6.6 % (1.7-9.3); Neutrophils # 5.4 K/mm3 (1.8-7.8); Neutrophils % 63.9 % (37.0-80.0); Nitrate,Urine Negative (Negative); PH,Urine 6.5 (5.0-8.5); Platelet Count 353 K/mm3 (142-424); Potassium 3.8 mmoL/L (3.5-5.1); Protein,Urine Negative (Negative); Red Blood Count 4.78 M/mm3 (4.20-5.40); Red Cell Distribution Width 13.6 % (11.5-17.5); Sodium 139 mmol/L (136-145); Specific Gravity, Urine <= 1.005 (1.005-1.030); Urobilinogen,Urine 0.2 EU/dl (0.2); White Blood Count 8.5 K/mm3 (4.8-10.8)
[2024-02-29 13:03] LABS: Alanine Aminotransferase 19 U/L (12-78); Albumin/Globulin Ratio 1.6 (1.1-1.8); Alkaline Phosphatase 67 U/L (38-126); Anion Gap 12.8 mEq/L (5-15); Aspartate Amino Transferase 29 U/L (14-36); Bilirubin,Total 0.6 mg/dl (0.2-1.3); Blood Urea Nitrogen 11 mg/dl (7-17); Calcium 9.3 mg/dl (8.4-10.2); Carbon Dioxide 26 mmol/L (22.0-30.0); Creatinine Clearance Estimated 93 mL/min (50-200); Estimated Glomerular Filt Rate 61 ml/min (>60); GFR (African American) 73 ML/MIN (>60); Globulin 2.9 g/dL (1.3-3.2); Glucose 109 mg/dl (74-100); Total Protein,Serum 7.5 g/dl (6.3-8.2)
[2024-02-29] MEDS: KETOROLAC 30MG/ML VIAL 30 MG IV (13:03)
[2024-02-29 13:08] LABS: Bacteria,Urine Trace /lpf; RBC,Urine Occasional #/hpf (0-3); WBC,Urine Occasional #/hpf (0-3)
--- NOTE | 2024-02-29 13:44 | PC.NURSE ---
Patient is out of the room, patient is gone to CT.
[2024-02-29] MEDS: IOPAMIDOL-370 (76%);100ML BOTTLE 75 ML IV (13:55)
[2024-02-29] MEDS: SODIUM CHLORIDE 0.9% 10ML SYR (RAD ONLY) 10 ML IV (13:55)
[2024-02-29 14:04] VITALS: BP 121/78; PULSE 63; RESP 15; O2SAT 98
--- NOTE | 2024-02-29 14:19 | HMH.EDGENADL ---
Discharge Plan Disposition Patient Disposition: Home, Self-Care Condition: Good Prescriptions Prescriptions: New ketorolac 10 mg tablet 10 mg PO Q8H PRN (Reason: pain) 3 Days Qty: 12 0RF No Action fluoxetine [Prozac] 10 mg capsule 10 mg PO DAILY Qty: 30 2RF Referrals Follow up/Referrals: Lio Vergara MD [Staff Physician] - See instructions Josie Kinney APRN [Primary Care Provider] - See instructions Activity Restrictions/Add. Instructions Additional Instructions/Restrictions: You were evaluated in the emergency department today. You have a dominant follicle on your right ovary but it looks like you do have good blood flow to both ovaries. Please follow-up closely with your primary care provider as well as with gynecology. Return to the emergency department right away for new or worsening symptoms, as the concern for ovarian cysts is that they can cause ovarian torsion as we discussed. supervisor hardboard your prescription for Toradol and take for pain as well as Tylenol at home as needed. Clinical Impressions Clinical Impression: Follicular cyst of right ovary, Right lower quadrant abdominal pain Stand Alone Forms Stand Alone Forms: Work/School Release Instructions Patient Instructions: DI for Ovarian Cyst, DI for Acute Abdominal Pain Print Language Print Language: Albanian Discharge ED Provider: Cintia Light General Adult HPI General Chief complaint: Abdominal Pain Stated complaint: R side pain Time Seen by Provider: 02/29/24 12:47 Mode of Arrival: Ambulatory Source of Information: Patient Limitations: No Limitations Description of Symptoms (Recalled from ER Triage Doc. by RN): sharp stabbing right lower quad since tuesday, pt had transvaginal US done yesterday that showed nothing abnormal or any cyst. pt has hx of endo metriosis and has had GB removed. pt complains of some nausea and has been having normal urine and bowel mvmts. History of Present Illness HPI narrative: This patient is a 43-year-old female with a history of salpingectomy presenting to the emergency department for evaluation concern for sharp right lower quadrant abdominal pain that started Tuesday. She had transvaginal ultrasound done yesterday that showed that she had a dominant follicle on the right ovary on my medical record review. She states that she had been trying to manage symptoms at home with [id number] medications and went to work today, but the pain had her doubled over because it was so severe. Given this, she decided to come in today for further evaluation and management. She denies any fevers, chills, vomiting, changes bowel movements, or other concerns. He does note nausea. No changes in bowel movements, abnormal vaginal discharge or bleeding, or urinary symptoms. Related Data Previous Rx's ?Medication ?Instructions ?Recorded fluoxetine 10 mg capsule (Prozac) 10 mg PO DAILY #30 caps 02/14/24 ketorolac 10 mg tablet 10 mg PO Q8H PRN pain 3 days #12 02/29/24 tabs Allergies Allergy/AdvReac Type Severity Reaction Status Date / Time No Known Allergies Allergy Verified 11/03/23 09:29 [facility] Disclaimer: The information contained in this section may have been updated after the patient was seen, as this information can be updated by other users. Medical History Tension headache No significant family history Surgical History History of salpingectomy H/O breast surgery Family History Other Coronary artery disease Diabetes Heart attack Hyperlipidemia Hypertension No significant family history Stroke Thyroid disorder Social History Smoking Status: Never smoker alcohol intake: never substance use type: denies use current occupational status: other Travel in the last 8 weeks: None household members: family housing: house current occupation: teacher caffeine: Yes Other Medical History Have you received the Flu Vaccine for this season: Yes Have you received the Pneumonia Vaccine: No ROS Obtained: Yes All systems reviewed & no additional complaints except as documented Physical Exam General General appearance: alert and in no apparent distress Head Head exam: atraumatic and normocephalic Eye Eye exam: Present normal appearance, PERRL and EOMI ENT ENT exam: Present normal exam, normal oropharynx, mucous membranes moist and normal external ear exam Neck Neck exam: Present normal inspection, full ROM and trachea midline; Absent tenderness Chest Chest inspection: Present normal inspection and symmetric chest wall rise; Absent tenderness Respiratory Respiratory exam: Present normal lung sounds bilaterally; Absent respiratory distress, wheezes, stridor or accessory muscle use Cardiovascular Cardiovascular exam: Present regular rate and normal rhythm Abdominal Exam Abdominal exam: Present soft and tenderness (Right lower quadrant); Absent distention, guarding, rebound or rigidity Extremities Exam Extremities exam: Present normal inspection, full ROM and normal capillary refill; Absent tenderness or edema Back Exam Back exam: Present normal inspection and full ROM; Absent tenderness Neurological Exam Neurological exam: Present alert, oriented X3, CN II-XII intact and normal gait; Absent motor sensory deficit Psychiatric Psychiatric exam: Present normal affect and normal mood Skin Skin exam: Present warm and dry Medical Decision Making Medical Records Medical records reviewed: Yes I reviewed the patient's medical records. Screening: Per USPSTF and CDC recommendations, given the prevalence of disease in our region, it is our hospital?s policy to screen for HIV and viral Hepatitis for all patients aged 18 and over and those with ongoing risk factors. Kaleb Inquiry Pt receiving controlled substance: No Vital Signs: 02/29/24 12:10 02/29/24 14:04 02/29/24 14:50 Temperature 98.2 F 98.0 F Temperature Source Oral Pulse Rate 63 70 Pulse Rate [Right Radial] 70 Respiratory Rate 20 15 20 Blood Pressure 121/78 130/70 Blood Pressure [Right Arm] 134/69 Blood Pressure Mean [Right Arm] 90 02 Sat by Pulse Oximetry 95 98 Oxygen Delivery Method Room Air Room Air Room Air Lab Data Lab results reviewed: Yes I reviewed the patient's lab results. Lab Results 02/29/24 12:30: WBC 8.5, RBC 4.78, Hgb 14.7, Hct 41.2, MCV 86.0, MCH 30.7, MCHC 35.6 H, RDW 13.6, Plt Count 353, MPV 8.3, Neut % (Auto) 63.9, Lymph % (Auto) 27.0, [place] % (Auto) 6.6, Eos % (Auto) 1.8, Baso % (Auto) 0.7, Neut # (Auto) 5.4, Lymph # (Auto) 2.3, [place] # (Auto) 0.6, Eos # (Auto) 0.2, Baso # (Auto) 0.1, Sodium 139, Potassium 3.8, Chloride 104, Carbon Dioxide 26, Anion Gap 12.8, BUN 11, Creatinine 1.00, Estimated Creat Clear 93, Estimated GFR 61, Est GFR ( Amer) 73, Glucose 109 H, Calcium 9.3, Total Bilirubin 0.6, AST 29, ALT 19, Alkaline Phosphatase 67, Total Protein 7.5, Albumin 4.6, Globulin 2.9, Albumin/Globulin Ratio 1.6, Urine Color Yellow, Urine Appearance Clear, Urine pH 6.5, Ur Specific [place] <= 1.005, Urine Protein Negative, Urine Glucose (UA) Negative, Urine Ketones Negative, Urine Blood Trace-i, Urine Nitrate Negative, Urine Bilirubin Negative, Urine Urobilinogen 0.2, Ur Leukocyte Esterase Trace, Urine RBC Occasional, Urine WBC Occasional, Ur Squamous Epith Cells 3-5, Urine Bacteria Trace 02/29/24 12:30 02/29/24 12:30 Orders (Tests/Meds): ED MEDICATIONS Discontinued Medications Generic Name Dose Route Start Last Admin Trade Name Freq PRN Reason Stop Dose Admin Iopamidol 75 ml 02/29/24 13:55 02/29/24 13:55 Iopamidol-370 (76%);100ml Bottle IV 02/29/24 13:56 75 ml ONCE ONE Administration Ketorolac Tromethamine 30 mg 02/29/24 12:56 02/29/24 13:03 Ketorolac 30mg/Ml Vial IV 02/29/24 12:57 30 mg ONCE ONE Administration Sodium Chloride 10 ml 02/29/24 12:34 Sodium Chloride 0.9% 10ml Flush Syringe IV 03/30/24 12:33 NEEDED PRN Maintain IV Site Sodium Chloride 10 ml 02/29/24 13:55 02/29/24 13:55 Sodium Chloride 0.9% 10ml Syr (Rad Only) IV 03/30/24 13:54 10 ml NEEDED PRN Administration Maintain IV Site ORDERS Category Date Time Status CT abdomen pelvis w con Stat Cat Scan 02/29/24 12:56 Completed CMP [Comprehensive Metabolic Panel] Stat Lab 02/29/24 12:30 Completed Complete Blood Count Auto Diff Stat Lab 02/29/24 12:30 Completed Urinalysis and Microscopic Stat Lab 02/29/24 12:30 Completed Medical Decision Narrative: In summary, this patient is a 43-year-old female presenting to the Emergency Department for evaluation of right lower quadrant abdominal pain. Differential diagnoses considered include but are not limited to ovarian cyst, ovarian torsion, appendicitis, colitis. Ruling out the most morbid conditions drove assessment. I reviewed patient's past medical records and noted outpatient ultrasound that showed that she has a dominant follicle on her right ovary but no large cyst. She had good flow to both ovaries noted on the ultrasound. On exam, the patient is sitting in no acute distress. She has right lower quadrant tenderness but no rebound or guarding. Workup included CBC, CMP, urinalysis, CT abdomen pelvis with IV contrast. She was given IV Toradol for symptomatic improvement of pain. I independently interpreted CT scan prior to the radiologist read and noted no concerns for appendicitis. Please see their read for final interpretation. Labs were obtained that demonstrated no significant leukocytosis, chemistry that is reassuring. Urine is not concerning for infection.. On reassessment, patient had minimal improvement after administration of interventions above. I had shared decision making with her and advised that since CT scan did not demonstrate acute issue and she did have a dominant follicle on the right ovary, we could obtain a new transvaginal ultrasound to make sure that she does not have any intermittent sort of torsion or no new obstruction of blood flow to her right ovary concerning for ovarian torsion. She states that the pain is not significantly changed or worse since then, so she does not feel that this is necessary. Ultimately, it is possible this dominant follicle is causing her pain. I feel that she is appropriate for discharge home with instructions for very strict return precautions should the pain worsen or should she have significant increase in pain. She was discharged with prescription for Toradol and instructions for close follow-up Critical Care Critical Care Time Critical Care Time: No
[2024-02-29 14:50] VITALS: BP 130/70; PULSE 70; RESP 20; TEMP 36.7; O2SAT 99
== END 2024-02-29 14:51 | disposition home or self-care (01) ==
PROVIDERS: Emergency Provider Emergency Medicine; PCP Nurse Practitioner Family
DX: N83.01 Follicular cyst of right ovary (principal); R10.31 Right lower quadrant pain; R11.0 Nausea
CPT/HCPCS: 74177; 80053; 81001; 85025; 96374; 99285; J1885; Q9967

== ENCOUNTER 2024-08-17 07:29 | Outpatient (CLI) | payer BC, SELFPAY ==
[2024-08-17 15:52] LABS: Microscopic, Urine URINE MICROSCOPIC (MICROSCOPIC)
[2024-08-17 16:55] LABS: Bilirubin,Urine Negative (Negative); Blood, Urine 1+ (Negative); Color,Urine YELLOW (Yellow); Glucose,Urine (UA) Negative (Negative); Ketones,Urine Negative (Negative); Leukocyte Esterase,Urine 1+ (Negative); Nitrate,Urine Negative (Negative); Protein,Urine Negative (Negative); Specific Gravity, Urine 1.015 (1.005-1.030); Urobilinogen,Urine 0.2 EU/dl (0.2)
[2024-08-17 16:59] LABS: Appearance,Urine Slightly Cloudy (Clear)
[2024-08-17 17:43] LABS: Bacteria,Urine 3+ /lpf; Squamous Epithelial Cell,Urine 20-50 #/hpf (0-5)
[2024-08-17 17:47] LABS: Mucus,Urine Trace /lpf
== END 2024-08-17 23:59 | disposition home or self-care (01) ==
LOC: LAB.DROPOF 08-18 07:30
PROVIDERS: PCP Obstetrics & Gynecology; Visit Provider Obstetrics & Gynecology
DX: N39.0 Urinary tract infection, site not specified (principal)
CPT/HCPCS: 81001; 87086; 87088; 87186

== ENCOUNTER 2024-08-24 12:31 | Outpatient (CLI) | payer BC, SELFPAY ==
[2024-08-24 12:42] VITALS: BMI 30.7
[2024-08-24 13:00] LABS: Chloride 107 mmol/L (98-107); Potassium 3.7 mmoL/L (3.5-5.1); Sodium 137 mmol/L (136-145)
[2024-08-24 13:02] LABS: Blood Urea Nitrogen 8 mg/dl (7-17); Creatinine Clearance Estimated 99 mL/min (50-200); Estimated Glomerular Filt Rate 61 ml/min (>60); GFR (African American) 73 ML/MIN (>60)
[2024-08-24 13:03] LABS: Anion Gap 9.7 mEq/L (5-15); Calcium 9.2 mg/dl (8.4-10.2); Carbon Dioxide 24 mmol/L (22.0-30.0); Glucose 118 mg/dl (74-100)
[2024-08-24 13:32] VITALS: BP 120/67; PULSE 53; RESP 18; O2SAT 99
[2024-08-24] MEDS: GENTAMICIN SULFATE 360 MG in 0.9 % SODIUM CHLORIDE 100 ML 100 MG IV (13:32)
[2024-08-24] MEDS: SODIUM CHLORIDE 0.9% 50ML BAG 50 ML IV (13:32)
[2024-08-24 14:40] VITALS: BP 110/66; PULSE 49; RESP 18; O2SAT 99
== END 2024-08-24 14:40 | disposition home or self-care (01) ==
LOC: INF 12:33
PROVIDERS: PCP Nurse Practitioner Family; Visit Provider Obstetrics & Gynecology
DX: N39.3 Stress incontinence (female) (male) (principal)
CPT/HCPCS: 80048; 96365; J1580

== ENCOUNTER 2024-09-03 09:41 | Emergency (ER) | payer BC, SELFPAY ==
[2024-09-03] VITALS (7 sets, daily range): BP systolic 115–150; BP diastolic 70–86; PULSE 52–75; RESP 18; TEMP 36.6–36.8; O2SAT 97–99; BMI 31.8
[2024-09-03 09:50] LABS: Microscopic, Urine URINE MICROSCOPIC (MICROSCOPIC)
[2024-09-03 10:03] LABS: Appearance,Urine CLEAR (Clear); Bilirubin,Urine Negative (Negative); Blood, Urine 1+ (Negative); Color,Urine YELLOW (Yellow); Glucose,Urine (UA) Negative (Negative); Ketones,Urine Negative (Negative); Leukocyte Esterase,Urine TRACE (Negative); Nitrate,Urine Negative (Negative); PH,Urine 6.5 (5.0-8.5); Protein,Urine Negative (Negative); Specific Gravity, Urine <= 1.005 (1.005-1.030); Urobilinogen,Urine 0.2 EU/dl (0.2)
--- NOTE | 2024-09-03 10:11 | PC.NURSE ---
JACQUES BANKS AT BEDSIDE
--- NOTE | 2024-09-03 10:12 | US_ITS ---
PROCEDURE INFORMATION: Exam: US Pelvis, Transvaginal, Non-Obstetric Exam date and time: 09/03/2024 10:34 AM Age: 43 years old Clinical indication: Pelvic pain and other: Lower back and pelvic; Additional info: Pelvic pain/pressure, HX of endo, HX prolapse TECHNIQUE: Imaging protocol: Real-time transvaginal pelvic (non-obstetric) ultrasound with image documentation. Transvaginal imaging was used for better evaluation of the endometrium, adnexa, and/or cervix. COMPARISON: US TRANSVAGINAL 02/28/2024 3:27 PM FINDINGS: Uterus: The uterus measures 9.4 x 5 x 5.8 cm. There is some heterogeneity along the fundus of the uterus which is nonspecific but no discrete mass lesion is identified. Consider adenomyosis. The endometrium is slightly prominent towards the fundus relative to the lower uterine segment but still remains within normal limits for thickness measuring about 8 mm. Right ovary/adnexa: Normal. No mass. Normal ovarian blood flow on color Doppler. Left ovary/adnexa: Normal. No mass. Normal ovarian blood flow on color Doppler. Urinary bladder: Urinary bladder is limited. Intraperitoneal space: No free fluid. IMPRESSION: 1. Nonspecific heterogeneity along the fundus of the uterus. Consider uterine adenomyosis. 2. The endometrium is within normal limits for thickness. 3. Both ovaries are normal in appearance. No evidence of ovarian torsion.
--- NOTE | 2024-09-03 10:12 | CT_ITS ---
FINAL REPORT TECHNIQUE: After the administration of intravenous contrast, axial images were obtained through the abdomen and pelvis by computed tomography. The study was performed with techniques to keep radiation dose as low as reasonably achievable, (ALARA). Individual dose reduction techniques using automated exposure control or adjustment of mA and/or kV according to the patient's size were employed. CLINICAL HISTORY: pubic pain. COMPARISON: 02/29/2024 FINDINGS: Abdomen: The lung bases are clear. The liver parenchyma is homogeneous. The gallbladder is absent. There is mild intrahepatic and extrahepatic biliary duct dilatation. The spleen, pancreas, adrenals and kidneys appear unremarkable. The aorta is normal in caliber. There is no free fluid or adenopathy. Pelvis: The appendix is not identified. The urinary bladder is unremarkable. There is no free fluid or adenopathy. IMPRESSION: No acute intra-abdominal process. Reviewed, Interpreted and Dictated by Nigel Lo MD Transcribed by Yolande Paulino Authenticated and [facility]
--- NOTE | 2024-09-03 10:15 | ED_ITS ---
Discharge Plan Disposition Patient Disposition: Home, Self-Care Prescriptions Prescriptions: No Action norgestimate-ethinyl estradiol [Sprintec (28)] 0.25-0.035 mg tablet 1 tab PO DAILY Qty: 84 0RF fluoxetine [Prozac] 10 mg capsule 10 mg PO DAILY Qty: 30 11RF Referrals Follow up/Referrals: Josie Kinney APRN [Primary Care Provider] - See instructions Activity Restrictions/Add. Instructions Additional Instructions/Restrictions: Please return to the emergency department for any worsening signs or symptoms, please follow-up with your family doctor and [facility]. Continue to take all medication as prescribed. Clinical Impressions Clinical Impression: Adenomyosis, Pelvic pain Instructions Patient Instructions: DI for Pelvic Pain Print Language Print Language: Faroese Discharge ED Provider: Gentry Vinson Adult HPI <СЕРГЕЙ Vora - Last Filed: 09/03/24 13:23> General Chief complaint: Urogenital-Female Stated complaint: Poss. Kidney stones Time Seen by Provider: 09/03/24 10:05 Mode of Arrival: Ambulatory Source of Information: Patient Description of Symptoms (Recalled from ER Triage Doc. by RN): PT REPORTS BILATERAL FLANK AND GROIN PAIN X 2 WEEKS RECENTLY TREATED WITH IV ABX, CONTINUES TO HAVE PAIN. DENIES FEVER OR CHILLS. PAIN WORSE LAST NIGHT History of Present Illness HPI narrative: 40-year-old female presents to the emergency department at the request of her [facility] for a 2-week history of bilateral flank pain, lower abdominal pain, suprapubic pain, describes it as pelvic pain/ pressure , patient is slated to have hysterectomy, upcoming in the next few months with her [facility] physician, for dysfunctional/abnormal uterine bleeding, with uterine prolapse, she denies any fever chills nausea vomiting, chest pain shortness of breath, has any real dysuria, but does have some discomfort when she walks and urinates, no trouble urinating, no melena no hematochezia, no hematemesis or hematuria, patient is a former smoker, denies any alcohol or drug use, patient has other past medical history consistent with anxiety/depression, and was recently started on OCPs by her [facility] provider. Around 1 week ago she had a UTI, culture came back that was resistant to oral antibiotics , thus went on a 1 round of IV antibiotic therapy, recent urine culture performed on August 31, yielded no growth. Initial triage vitals are unremarkable. Onset (ago): week(s) Related Data Previous Rx's ?Medication ?Instructions ?Recorded fluoxetine 10 mg capsule (Prozac) 10 mg PO DAILY #30 caps 05/24/24 norgestimate 0.25 mg-ethinyl 1 tab PO DAILY #84 tabs 08/17/24 estradiol 0.035 mg tablet (Sprintec (28)) Allergies Allergy/AdvReac Type Severity Reaction Status Date / Time No Known Allergies Allergy Verified 08/30/24 13:05 [facility] <СЕРГЕЙ Vora - Last Filed: 09/03/24 13:23> [facility] Disclaimer: The information contained in this section may have been updated after the patient was seen, as this information can be updated by other users. Medical History Tension headache No significant family history Surgical History History of salpingectomy H/O breast surgery Family History Other Coronary artery disease Diabetes Heart attack Hyperlipidemia Hypertension No significant family history Stroke Thyroid disorder Social History Smoking Status: Former smoker tobacco type: cigarettes packs per day: 1 alcohol intake: never substance use type: denies use current occupational status: other Travel in the last 8 weeks?: None household members: family housing: house current occupation: teacher caffeine: Yes Have you lived/traveled outside US in past 30 days?: No Contact w/someone who lives/traveled outside US past 30 days?: No Exposure to someone with infectious disease in past 14 days?: No Do you have a fever (greater than 100.4 F or 38 C)?: No Have you tested positive for COVID-19?: No Exposed to someone with COVID-19 in past 14 days?: No Do you have a sore throat?: No Do you have a cough?: No Do you have any weakness?: No Do you have any diarrhea?: No Are you experiencing any unusual bleeding?: No Do you have any muscle aches/pain?: No Do you have any abdominal pain?: No Are you experiencing loss of taste or smell?: No Other Medical History Have you received the Flu Vaccine for this season: Yes Have you received the Pneumonia Vaccine: No <СЕРГЕЙ Vora - Last Filed: 09/03/24 13:23> ROS Obtained: Yes All systems reviewed & no additional complaints except as documented Physical Exam <СЕРГЕЙ Vora - Last Filed: 09/03/24 13:23> General General appearance: alert and in no apparent distress Head Head exam: atraumatic and normocephalic Eye Eye exam: Present PERRL and EOMI ENT ENT exam: Present mucous membranes moist Neck Neck exam: Present normal inspection Chest Chest inspection: Present normal inspection and symmetric chest wall rise Respiratory Respiratory exam: Present normal lung sounds bilaterally; Absent respiratory distress Cardiovascular Cardiovascular exam: Present regular rate and normal rhythm Abdominal Exam Abdominal exam: Present soft and tenderness Abdominal tenderness: Present suprapubic and mild Extremities Exam Extremities exam: Present normal inspection Back Exam Back exam: Present CVA tenderness (R) and CVA tenderness (L) Neurological Exam Neurological exam: Present alert and oriented X3 Psychiatric Psychiatric exam: Present normal affect Skin Skin exam: Present warm and dry Medical Decision Making <СЕРГЕЙ Vora - Last Filed: 09/03/24 13:23> Medical Records Medical records reviewed: Yes I reviewed the patient's medical records. Screening: Per USPSTF and CDC recommendations, given the prevalence of disease in our region, it is our hospital?s policy to screen for HIV and viral Hepatitis for all patients aged 18 and over and those with ongoing risk factors. Kaleb Inquiry Pt receiving controlled substance: No Kaleb was queried for this patient: No Vital Signs: 09/03/24 10:04 09/03/24 11:00 09/03/24 11:30 Temperature 97.8 F Temperature Source Oral Pulse Rate 57 L 52 L Pulse Rate [Radial] 75 Respiratory Rate 18 Blood Pressure 126/83 115/70 Blood Pressure [Right Arm] 133/76 Blood Pressure Mean [Right Arm] 95 Blood Pressure Source Blood Pressure Source [Right Arm] Automatic Cuff Blood Pressure Position Blood Pressure Position [Right Arm] Sitting 02 Sat by Pulse Oximetry 98 99 97 Oxygen Delivery Method Room Air Room Air Room Air 09/03/24 12:01 09/03/24 12:31 09/03/24 13:00 Temperature Temperature Source Pulse Rate 54 L 55 L 61 Pulse Rate [Radial] Respiratory Rate Blood Pressure 126/75 150/86 H 134/83 Blood Pressure [Right Arm] Blood Pressure Mean [Right Arm] Blood Pressure Source Blood Pressure Source [Right Arm] Blood Pressure Position Blood Pressure Position [Right Arm] 02 Sat by Pulse Oximetry 98 99 98 Oxygen Delivery Method Room Air Room Air Room Air 09/03/24 13:35 Temperature 98.2 F Temperature Source Oral Pulse Rate 62 Pulse Rate [Radial] Respiratory Rate 18 Blood Pressure 145/86 H Blood Pressure [Right Arm] Blood Pressure Mean [Right Arm] Blood Pressure Source Automatic Cuff Blood Pressure Source [Right Arm] Blood Pressure Position Sitting Blood Pressure Position [Right Arm] 02 Sat by Pulse Oximetry Oxygen Delivery Method Room Air Lab Data Lab results reviewed: Yes I reviewed the patient's lab results. Lab Results 09/03/24 09:46: Urine Color Yellow, Urine Appearance Clear, Urine pH 6.5, Ur Specific Gifford <= 1.005, Urine Protein Negative, Urine Glucose (UA) Negative, Urine Ketones Negative, Urine Blood 1+ A, Urine Nitrate Negative, Urine Bilirubin Negative, Urine Urobilinogen 0.2, Ur Leukocyte Esterase Trace, Urine RBC Occasional, Urine WBC 3-5, Ur Squamous Epith Cells 5-10, Urine Bacteria Trace 09/03/24 10:00: WBC 9.5, RBC 4.25, Hgb 12.9, Hct 37.9, MCV 89.2, MCH 30.4, MCHC 34.0, RDW 13.0, Plt Count 331, MPV 11.2 H, Neut % (Auto) 68.8, Lymph % (Auto) 23.4, [place] % (Auto) 5.5, Eos % (Auto) 1.8, Baso % (Auto) 0.2, Neut # (Auto) 6.5, Lymph # (Auto) 2.2, [place] # (Auto) 0.5, Eos # (Auto) 0.2, Baso # (Auto) 0.0, Sodium 138, Potassium 4.1, Chloride 109 H, Carbon Dioxide 25, Anion Gap 8.1, BUN 10, Creatinine 0.90, Estimated Creat Clear 114, Estimated GFR 68, Est GFR ( Amer) 83, Glucose 104 H, Lactate 1.5, Calcium 9.0, Total Bilirubin 0.4, AST 22, ALT 19, Alkaline Phosphatase 60, Total Protein 7.2, Albumin 4.6, Globulin 2.6, Albumin/Globulin Ratio 1.8, Lipase 74, Serum HCG, Qual Negative, HCV Ab DOUG w/Rflx PCR Qn Negative, HIV Ag/Ab Combo Qual Negative 09/03/24 10:00 09/03/24 10:00 Orders (Tests/Meds): ED MEDICATIONS Discontinued Medications Generic Name Dose Route Start Last Admin Trade Name Freq PRN Reason Stop Dose Admin Iopamidol 75 ml 09/03/24 10:53 09/03/24 10:54 Iopamidol-370 (76%);100ml Bottle IV 09/03/24 10:54 75 ml ONCE ONE Administration Ketorolac Tromethamine 15 mg 09/03/24 10:13 09/03/24 11:00 Ketorolac 30mg/Ml Vial IV 09/03/24 10:14 15 mg ONCE ONE Administration Sodium Chloride 10 ml 09/03/24 10:53 09/03/24 10:54 Sodium Chloride 0.9% 10ml Syr (Rad Only) IV 10/03/24 10:52 10 ml NEEDED PRN Administration Maintain IV Site ORDERS Category Date Time Status CT abdomen pelvis w con Stat Cat Scan 09/03/24 10:12 Completed US transvaginal Stat Exams 09/03/24 10:12 Completed Complete Blood Count Auto Diff Stat Lab 09/03/24 10:00 Completed Comprehensive Metabolic Panel Stat Lab 09/03/24 10:00 Completed HCG Qualitative, Serum Stat Lab 09/03/24 10:00 Completed HIV Combo Stat Lab 09/03/24 10:00 Completed Hepatitis C Ab Qual. W/ RFX Stat Lab 09/03/24 10:00 Completed Lactic Acid Stat Lab 09/03/24 10:00 Completed Lipase Stat Lab 09/03/24 10:00 Completed UA [Urinalysis and Microscopic] Stat Lab 09/03/24 09:46 Completed Blood Culture Stat Micro 09/03/24 10:54 Received Medical Decision Narrative: 43-year-old female presents emergency department with suprapubic pain, bilateral flank pain, back pain, lower abdominal pain for 2 weeks, differential diagnosis include but not limited to endometriosis, ovarian cyst, ovarian torsion, acute UTI, acute pyelonephritis, nephrolithiasis, ureterolithiasis, uterine prolapse, diverticulitis, appendicitis, ovarian cyst, uterine fibroid, among others. I discussed this patient's case with the attending physician Will obtain basic laboratory studies lipase lactate urinalysis, lactate, blood cultures, will obtain TVUS, CT ab pelvis with contrast, and will give 15 mg IV Toradol. Urinalysis notable for 1+ hematuria, negative nitrites, trace leukocyte esterase CBC unremarkable, there is no leukocytosis CMP unremarkable, hCG is negative. I reviewed the patient's transvaginal ultrasound along the corresponding radiologic reports, nonspecific heterogenicity, along the fundus of the uterus consider uterine adenomyosis, the endometrium is within normal limits for thickness, both ovaries are normal in appearance no evidence of ovarian torsion. I reviewed the patient's CT abdomen pelvis with contrast on the corresponding radiologic report, no acute intra-abdominal process. I discussed all results with the patient and family the bedside, recommend follow-up with [facility] [employer] physician for adenomyosis, most likely cause of the patient's pelvic pain, she is slated for hysterectomy in the upcoming months, advised her to keep that appointment and follow-up sooner if indicated, please follow-up PCP and return to the emergency department any worsening signs or symptoms. <Gentry Vinson MD - Last Filed: 09/03/24 23:11> Vital Signs: 09/03/24 10:04 09/03/24 11:00 09/03/24 11:30 Temperature 97.8 F Temperature Source Oral Pulse Rate 57 L 52 L Pulse Rate [Radial] 75 Respiratory Rate 18 Blood Pressure 126/83 115/70 Blood Pressure [Right Arm] 133/76 Blood Pressure Mean [Right Arm] 95 Blood Pressure Source Blood Pressure Source [Right Arm] Automatic Cuff Blood Pressure Position Blood Pressure Position [Right Arm] Sitting 02 Sat by Pulse Oximetry 98 99 97 Oxygen Delivery Method Room Air Room Air Room Air 09/03/24 12:01 09/03/24 12:31 09/03/24 13:00 Temperature Temperature Source Pulse Rate 54 L 55 L 61 Pulse Rate [Radial] Respiratory Rate Blood Pressure 126/75 150/86 H 134/83 Blood Pressure [Right Arm] Blood Pressure Mean [Right Arm] Blood Pressure Source Blood Pressure Source [Right Arm] Blood Pressure Position Blood Pressure Position [Right Arm] 02 Sat by Pulse Oximetry 98 99 98 Oxygen Delivery Method Room Air Room Air Room Air 09/03/24 13:35 Temperature 98.2 F Temperature Source Oral Pulse Rate 62 Pulse Rate [Radial] Respiratory Rate 18 Blood Pressure 145/86 H Blood Pressure [Right Arm] Blood Pressure Mean [Right Arm] Blood Pressure Source Automatic Cuff Blood Pressure Source [Right Arm] Blood Pressure Position Sitting Blood Pressure Position [Right Arm] 02 Sat by Pulse Oximetry Oxygen Delivery Method Room Air Lab Data Lab Results 09/03/24 09:46: Urine Color Yellow, Urine Appearance Clear, Urine pH 6.5, Ur Specific Gifford <= 1.005, Urine Protein Negative, Urine Glucose (UA) Negative, Urine Ketones Negative, Urine Blood 1+ A, Urine Nitrate Negative, Urine Bilirubin Negative, Urine Urobilinogen 0.2, Ur Leukocyte Esterase Trace, Urine RBC Occasional, Urine WBC 3-5, Ur Squamous Epith Cells 5-10, Urine Bacteria Trace 09/03/24 10:00: WBC 9.5, RBC 4.25, Hgb 12.9, Hct 37.9, MCV 89.2, MCH 30.4, MCHC 34.0, RDW 13.0, Plt Count 331, MPV 11.2 H, Neut % (Auto) 68.8, Lymph % (Auto) 23.4, [place] % (Auto) 5.5, Eos % (Auto) 1.8, Baso % (Auto) 0.2, Neut # (Auto) 6.5, Lymph # (Auto) 2.2, [place] # (Auto) 0.5, Eos # (Auto) 0.2, Baso # (Auto) 0.0, Sodium 138, Potassium 4.1, Chloride 109 H, Carbon Dioxide 25, Anion Gap 8.1, BUN 10, Creatinine 0.90, Estimated Creat Clear 114, Estimated GFR 68, Est GFR ( Amer) 83, Glucose 104 H, Lactate 1.5, Calcium 9.0, Total Bilirubin 0.4, AST 22, ALT 19, Alkaline Phosphatase 60, Total Protein 7.2, Albumin 4.6, Globulin 2.6, Albumin/Globulin Ratio 1.8, Lipase 74, Serum HCG, Qual Negative, HCV Ab DOUG w/Rflx PCR Qn Negative, HIV Ag/Ab Combo Qual Negative Orders (Tests/Meds): ED MEDICATIONS Discontinued Medications Generic Name Dose Route Start Last Admin Trade Name Freq PRN Reason Stop Dose Admin Iopamidol 75 ml 09/03/24 10:53 09/03/24 10:54 Iopamidol-370 (76%);100ml Bottle IV 09/03/24 10:54 75 ml ONCE ONE Administration Ketorolac Tromethamine 15 mg 09/03/24 10:13 09/03/24 11:00 Ketorolac 30mg/Ml Vial IV 09/03/24 10:14 15 mg ONCE ONE Administration Sodium Chloride 10 ml 09/03/24 10:53 09/03/24 10:54 Sodium Chloride 0.9% 10ml Syr (Rad Only) IV 10/03/24 10:52 10 ml NEEDED PRN Administration Maintain IV Site ORDERS Category Date Time Status CT abdomen pelvis w con Stat Cat Scan 09/03/24 10:12 Completed US transvaginal Stat Exams 09/03/24 10:12 Completed Complete Blood Count Auto Diff Stat Lab 09/03/24 10:00 Completed Comprehensive Metabolic Panel Stat Lab 09/03/24 10:00 Completed HCG Qualitative, Serum Stat Lab 09/03/24 10:00 Completed HIV Combo Stat Lab 09/03/24 10:00 Completed Hepatitis C Ab Qual. W/ RFX Stat Lab 09/03/24 10:00 Completed Lactic Acid Stat Lab 09/03/24 10:00 Completed Lipase Stat Lab 09/03/24 10:00 Completed UA [Urinalysis and Microscopic] Stat Lab 09/03/24 09:46 Completed Blood Culture Stat Micro 09/03/24 10:54 Received Medical Decision Narrative: 43-year-old female presents emergency department with suprapubic pain, bilateral flank pain, back pain, lower abdominal pain for 2 weeks, differential diagnosis include but not limited to endometriosis, ovarian cyst, ovarian torsion, acute UTI, acute pyelonephritis, nephrolithiasis, ureterolithiasis, uterine prolapse, diverticulitis, appendicitis, ovarian cyst, uterine fibroid, among others. I discussed this patient's case with the attending physician Will obtain basic laboratory studies lipase lactate urinalysis, lactate, blood cultures, will obtain TVUS, CT ab pelvis with contrast, and will give 15 mg IV Toradol. Urinalysis notable for 1+ hematuria, negative nitrites, trace leukocyte esterase CBC unremarkable, there is no leukocytosis CMP unremarkable, hCG is negative. I reviewed the patient's transvaginal ultrasound along the corresponding radiologic reports, nonspecific heterogenicity, along the fundus of the uterus consider uterine adenomyosis, the endometrium is within normal limits for thickness, both ovaries are normal in appearance no evidence of ovarian torsion. I reviewed the patient's CT abdomen pelvis with contrast on the corresponding radiologic report, no acute intra-abdominal process. I discussed all results with the patient and family the bedside, recommend follow-up with [facility] physician for adenomyosis, most likely cause of the patient's pelvic pain, she is slated for hysterectomy in the upcoming months, advised her to keep that appointment and follow-up sooner if indicated, please follow-up PCP and return to the emergency department any worsening signs or symptoms. I was consulted by the GREGORIA, and we discussed the complexity of the problems being addressed. I approve the treatment and management plan for this patient's care in the emergency department, thus performing a substantive portion of the medical decision making. Gentry Vinson MD Critical Care <СЕРГЕЙ Vora - Last Filed: 09/03/24 13:23> Critical Care Time Critical Care Time: No
[2024-09-03 10:16] LABS: Basophils % 0.2 % (0.1-2.0); Eosinophils # 0.2 Kmm3 (0.0-0.4); Eosinophils % 1.8 % (0.1-12.0); Hematocrit 37.9 % (37.0-47.0); Hemoglobin 12.9 g/dL (12.2-16.2); Immature Granulocytes # 0.03 10^3uL; Immature Granulocytes % 0.3 %; Lymphocytes # 2.2 K/mm3 (0.7-4.5); Lymphocytes % 23.4 % (10-50); Mean Corpuscular Hemoglobin 30.4 pg (27.0-31.2); Mean Corpuscular Volume 89.2 fl (81-99); Mean Platelet Volume 11.2 fl (7.4-10.4); Monocytes # 0.5 K/mm3 (0.1-1.0); Monocytes % 5.5 % (1.7-9.3); Neutrophils # 6.5 K/mm3 (1.8-7.8); Neutrophils % 68.8 % (37.0-80.0); Nucleated Red Blood Cells # 0 10^3/uL; Nucleated Red Blood Cells % 0 %; Platelet Count 331 K/mm3 (142-424); Red Blood Count 4.25 M/mm3 (4.20-5.40); Red Cell Distribution Width-SD 42.7 fL; White Blood Count 9.5 K/mm3 (4.8-10.8)
[2024-09-03 10:34] LABS: Lactic Acid 1.5 mmol/L (0.7-2.1)
[2024-09-03 10:35] LABS: Alanine Aminotransferase 19 U/L (12-78); Albumin Level 4.6 g/dl (3.5-5.0); Albumin/Globulin Ratio 1.8 (1.1-1.8); Alkaline Phosphatase 60 U/L (38-126); Anion Gap 8.1 mEq/L (5-15); Aspartate Amino Transferase 22 U/L (14-36); Bilirubin,Total 0.4 mg/dl (0.2-1.3); Blood Urea Nitrogen 10 mg/dl (7-17); Carbon Dioxide 25 mmol/L (22.0-30.0); Chloride 109 mmol/L (98-107); Creatinine Clearance Estimated 114 mL/min (50-200); Estimated Glomerular Filt Rate 68 ml/min (>60); GFR (African American) 83 ML/MIN (>60); Globulin 2.6 g/dL (1.3-3.2); Glucose 104 mg/dl (74-100); Lipase 74 U/L (23-300); Potassium 4.1 mmoL/L (3.5-5.1); Sodium 138 mmol/L (136-145); Total Protein,Serum 7.2 g/dl (6.3-8.2)
[2024-09-03 10:36] LABS: HCG Qualitative, Serum Negative (Negative)
[2024-09-03 10:37] LABS: Bacteria,Urine Trace /lpf; RBC,Urine Occasional #/hpf (0-3)
[2024-09-03] MEDS: IOPAMIDOL-370 (76%);100ML BOTTLE 75 ML IV (10:54)
[2024-09-03] MEDS: SODIUM CHLORIDE 0.9% 10ML SYR (RAD ONLY) 10 ML IV (10:54)
[2024-09-03] MEDS: KETOROLAC 30MG/ML VIAL 15 MG IV (11:00)
--- NOTE | 2024-09-03 11:00 | PC.NURSE ---
PT MEDICATED PER EMAR, CALL LIGHT WITHIN REACH. NO NEEDS AT THIS TIME. WARM BLANKET PROVIDED
--- NOTE | 2024-09-03 11:44 | PC.NURSE ---
ROUNDED ON PT, REPORTS SOME RELIEF FROM TORADOL. NO NEEDS AT THIS TIME. CALL LIGHT WITHIN REACH
[2024-09-03 13:00] LABS: HIV Combo NEGATIVE (Negative)
[2024-09-03 13:08] LABS: Hepatitis C Ab Qual. W/ RFX NEGATIVE (Negative)
== END 2024-09-03 13:35 | disposition home or self-care (01) ==
PROVIDERS: Physician Assistant; Emergency Provider Student in an Organized Health Care Education/Training Program; PCP Nurse Practitioner Family
DX: R10.2 Pelvic and perineal pain (principal); N80.03 Adenomyosis of the uterus; Z11.59 Encounter for screening for other viral diseases; Z11.4 Encounter for screening for human immunodeficiency virus [HIV]
CPT/HCPCS: 74177; 76830; 80053; 81001; 83605; 83690; 84703; 85025; 86803; 87040; 87389; 96374; 99285; J1885; Q9967

== ENCOUNTER 2024-09-21 11:50 | Outpatient (CLI) | payer BC, SELFPAY ==
--- NOTE | 2024-09-21 12:23 | ECG_ITS ---
APPROVED REPORT Exam: Resting ECG HR:58 bpm ECG Measurements Heart Rate 58 AXES NJ 148 P 48 QRSd 82 QRS 59 QT 417 T 33 QTc 413 Conclusion SINUS BRADYCARDIA WITH SINUS ARRHYTHMIA BORDERLINE ECG UNCONFIRMED REPORT Electronically signed by : Gm Figueroa MD 09/25/2024 09:21:15
[2024-09-21 12:38] LABS: Basophils % 0.3 % (0.1-2.0); Eosinophils # 0.2 Kmm3 (0.0-0.4); Eosinophils % 1.8 % (0.1-12.0); Hematocrit 43.7 % (37.0-47.0); Hemoglobin 14.8 g/dL (12.2-16.2); Immature Granulocytes # 0.02 10^3uL; Immature Granulocytes % 0.2 %; Lymphocytes # 2.2 K/mm3 (0.7-4.5); Lymphocytes % 24.8 % (10-50); Mean Corpuscular HGB Conc 33.9 g/dL (31.8-35.4); Mean Corpuscular Hemoglobin 29.9 pg (27.0-31.2); Mean Corpuscular Volume 88.3 fl (81-99); Mean Platelet Volume 10.7 fl (7.4-10.4); Monocytes # 0.7 K/mm3 (0.1-1.0); Monocytes % 7.3 % (1.7-9.3); Neutrophils # 5.9 K/mm3 (1.8-7.8); Neutrophils % 65.6 % (37.0-80.0); Nucleated Red Blood Cells # 0 10^3/uL; Nucleated Red Blood Cells % 0 %; Platelet Count 404 K/mm3 (142-424); Red Blood Count 4.95 M/mm3 (4.20-5.40); Red Cell Distribution Width 12.3 % (11.5-17.5); Red Cell Distribution Width-SD 39.8 fL
[2024-09-21 12:45] LABS: Alanine Aminotransferase 17 U/L (12-78); Albumin Level 4.7 g/dl (3.5-5.0); Albumin/Globulin Ratio 1.5 (1.1-1.8); Alkaline Phosphatase 78 U/L (38-126); Aspartate Amino Transferase 28 U/L (14-36); Blood Urea Nitrogen 13 mg/dl (7-17); Calcium 9.1 mg/dl (8.4-10.2); Carbon Dioxide 24 mmol/L (22.0-30.0); Chloride 105 mmol/L (98-107); Estimated Glomerular Filt Rate 54 ml/min (>60); GFR (African American) 66 ML/MIN (>60); Globulin 3.2 g/dL (1.3-3.2); Glucose 92 mg/dl (74-100); Sodium 132 mmol/L (136-145); Total Protein,Serum 7.9 g/dl (6.3-8.2)
[2024-09-21 12:46] LABS: Anion Gap 7.3 mEq/L (5-15); Potassium 4.3 mmoL/L (3.5-5.1)
[2024-09-21 13:04] LABS: HCG Qualitative, Serum Negative (Negative)
[2024-09-21 14:12] VITALS: BMI 29.3
== END 2024-09-21 23:59 | disposition home or self-care (01) ==
LOC: PREOP 11:51
PROVIDERS: PCP Nurse Practitioner Family; Visit Provider Obstetrics & Gynecology
DX: Z01.810 Encounter for preprocedural cardiovascular examination (principal); Z01.812 Encounter for preprocedural laboratory examination; I49.8 Other specified cardiac arrhythmias; R00.1 Bradycardia, unspecified
CPT/HCPCS: 80053; 84703; 85025; 93005

== ENCOUNTER 2024-09-27 06:02 | Day surgery (SDC) | payer BC, SELFPAY ==
[2024-09-21 14:41] VITALS: BMI 29.5
[2024-09-27] VITALS (14 sets, daily range): BP systolic 106–133; BP diastolic 52–80; PULSE 69–88; RESP 16–18; TEMP 36.1–38; O2SAT 94–99
[2024-09-27] MEDS: ACETAMINOPHEN 500MG TAB 1000 MG PO (06:51)
[2024-09-27] MEDS: CELECOXIB 100MG CAPSULE 400 MG PO (06:55)
[2024-09-27] MEDS: GABAPENTIN 300MG CAPSULE 600 MG (06:56)
--- NOTE | 2024-09-27 07:13 | EXP.ANES.CKL ---
[facility] Disclaimer: The information contained in this section may have been updated after the patient was seen, as this information can be updated by other users. Medical History Urinary tract infection Endometriosis Anxiety Depression Psoriasis Allergies Tension headache Surgical History H/O excision of ganglion cyst H/O dilation and curettage History of cholecystectomy History of salpingectomy H/O breast surgery Family History Other Coronary artery disease Diabetes Heart attack Hyperlipidemia Hypertension Stroke Thyroid disorder Social History Smoking Status: Former smoker tobacco type: cigarettes packs per day: 1 alcohol intake: never substance use type: denies use current occupational status: other Travel in the last 8 weeks?: None household members: family housing: house current occupation: teacher caffeine: Yes Have you lived/traveled outside US in past 30 days?: No Contact w/someone who lives/traveled outside US past 30 days?: No Exposure to someone with infectious disease in past 14 days?: No Do you have a fever (greater than 100.4 F or 38 C)?: No Have you tested positive for COVID-19?: No Exposed to someone with COVID-19 in past 14 days?: No Do you have a sore throat?: No Do you have a cough?: No Do you have any weakness?: No Do you have any diarrhea?: No Are you experiencing any unusual bleeding?: No Do you have any muscle aches/pain?: No Do you have any abdominal pain?: No Are you experiencing loss of taste or smell?: No [facility] Anesthesia Checklist Patient Identification Patient Identification: Arm Band Structural Data Admitted From: Home Planned Operative Procedure/s: Total Vaginal Hysterectomy Consent for Planned Operative Procedure(s) Verified: Yes Verified Documents: Surgical Consent and History and Physical NPO Status Verified Time NPO: 00:00 Additional verifications Anesthesia Reactions: No Hx Blood Transfusions: No Blood Transfusion Reaction: No Airway Assessment Mallampati Score:: Class II C-Spine Mobility Assessed: Yes TMJ Mobility Assessed: Yes Dentition: Good Dentition Neurological Assessment Level of Consciousness: Awake, Alert and Appropriate Anesthesia Plan Anesthesia Risk discussed: Yes Anesthesia Plan: Verified ASA Class: II Anesthesia Type: General
[2024-09-27] MEDS: LACTATED RINGERS 1000ML 1,000 ML 999 ML IV (07:15)
[2024-09-27] MEDS: CEFAZOLIN SODIUM 2 GM in 0.9 % SODIUM CHLORIDE 100 ML IV (07:40)
[2024-09-27] MEDS: LIDOCAINE 1% W/EPI 1:100,000 20ML VIAL 20 ML (08:04)
[2024-09-27] MEDS: WATER FOR IRRIGATION,STERILE 3,000 ML 3000 ML IR (08:06)
[2024-09-27] MEDS: METRONIDAZ/SOD CHL 500 MG/100 ML PIGGYBACK 100 MG IV (08:07)
--- NOTE | 2024-09-27 09:31 | EXP.ANES.I ---
[facility] Anesthesia Record Part I Anesthesia Record I Intake, IV Amount: 1,000 Hydration: Adequate Estimated blood loss (mL): 25 Urine output (mL): 100 Blood Products used (#): none Blood Pressure: 133/74 SaO2: 95 Pulse Rate: 88 Airway Patency: Patent Respiratory Rate: 18 Temperature: 98.4 F Patient is:: Awake Stable to PACU at:: 09:26
--- NOTE | 2024-09-27 09:38 | EXP.OP.NOTE ---
Date of procedure: 09/27/24 Pre-op Diagnosis:: 1. Abnormal uterine bleeding 2. Heavy uterine bleeding 3. Pelvic Pain 4. Dysparunia 5. Suspect adenomyosis Post-op Diagnosis:: 1. Abnormal uterine bleeding 2. Heavy uterine bleeding 3. Pelvic Pain 4. Dysparunia 5. Suspect adenomyosis Procedure performed:: 1. Total vaginal hysterectomy 2. Enterocele repair 3. Alicea Culdoplasty 4. Cystoscopy Surgeon:: Marce Jimenez DO Abrasive Grader Helper(s):: Lio Vergara MD INDUSTRIAL TECHNOLOGY TEACHER:: Other (Melissa Boothe) Anesthesia: GETA Estimated blood loss (mL): 25 Operative findings:: Uterine EUA was significant for 8wk size uterus with regular borders at the fundus. Grade 3 uterine descent was appreciated, apical descent to the hymen with enterocele present. Grade two cystocele. No gross adnexal masses were appreciated. Operative note:: Pt was taken back to the OR where GETA was obtained without difficulty. SCDs were placed and found to be working. The patient was placed in dorsal lithotomy position using yellowfin stirrups. The vagina was prepped and draped in the normal sterile fashion. An in and out catheter was used to drain the bladder and 20 mL of methylene blue normal saline were inserted into the bladder. A weighted speculum and Fordoche were used to visualize the cervix. Two Anaya tenaculums were used to grasp the anterior and posterior ectocervix on the right and left. A scalpel was used to make a circumferential incision at the cervicovaginal junction. A raytec was used to bluntly dissect the paracervical fascia from the cervix off the vaginal mucosa. Solo scissors and pickups were used to enter the colpotomy posteriorly and a long weighted speculum was placed. Abdominal entry was confirmed by the presence of the ovary and omentum. The left uterosacral ligament was grasped with a octavio clamp, cut, and suture ligated with 0-Vicryl. This was tagged for later incorporation to the cuff. This process was repeated on the contralateral side. The anterior vaginal tissue was further dissected off the cervix. Pickups and Metzenbaum scissors were used to make the anterior colpotomy. A Fordoche retractor was placed. Entry to the abdominal cavity was confirmed with the presence of omentum and the left ovary was visualized. The Enseal was used to dissect the broad ligament down the lateral aspect of the uterine body on the left side. The cardinal ligaments and uterine vessels were identified bilaterally, grasped with the Enseal, coagulated and transected. This process was repeated on the right. The utero-ovarian ligament was clamped, and suture-ligated on the left, this completely detached the left side of the uterus. At this time there was only a very small amount of the utero-ovarian and round ligament noted to be attached on the right. This was clamped and suture-ligated. The uterus was free and removed from the vagina, passed off the operative field and sent to pathology for evaluation. The posterior peritoneum was fixed to the posterior vaginal cuff with a running locking stitch. 0-PDS was used to place a Alicea stitch for the culdoplasty, incorporating the bilateral uterosacral ligaments. The anterior peritoneum was grasped with an Martha clamp and pursestringed closed. Prior to closing the peritoneum, a small amount of bleeding was noted from the patient's right uterosacral area. This was superficial bleeding from the peritoneal edge of the vaginal cuff. A eblkkr-sy-cpkyk was placed, and hemostasis noted from that area. There was additional bleeding noted to be pulling at the posterior cuff. This bleeding was investigated and found to be coming from a ruptured corpus luteal cyst on the left ovary. The Bovie was used but unable to achieve adequate hemostasis. A wgcfge-gi-xield was placed, but bleeding persisted, although very scant. Ligation clips were placed along the border of the ruptured follicle. Hemostasis was noted. Surgicel powder was applied along the edge of his ruptured cyst was noted. A third of a piece of Gelfoam was placed for added prophylaxis and no additional bleeding was appreciated. The surgical field was inspected for greater than 2 minutes with no additional bleeding. At this time the peritoneum was pursestring closed and tied. The vaginal cuff was then closed with 0 Vicryl in a running locking fashion. Alicea culdoplasty was tied to suspend the apex of the vagina. Hemostasis was noted. Cystoscopy Cystoscopy was performed with a 70 degree cystoscope and distended with normal saline. Inspection of the bladder showed a normal-looking, blue dyed, smooth bladder mucosa with no evidence of injury, suture, puckering, or other abnormalities.? Both ureteral meatuses were visualized and were noted to be expelling urine in routine fashion.? Cystoscope was removed. Sponge, instrument and needle counts were correct x3, per nursing. The patient was awakened from general anesthesia and transferred to the PACU in stable condition. Condition: stable Disposition: same day Specimens:: Uterine body, cervix Complications:: None
[2024-09-27] MEDS: LACTATED RINGERS 1000ML 1,000 ML 25 ML IV (09:50)
--- NOTE | 2024-09-27 11:01 | SUR.PHASEII ---
PATIENT ATE SALTINE CRACKERS AND DRANK SPRITE AFTER AMBULATING TO BATHROOM. DENIES N/V. TOLERATED INTAKE WELL. RN ADMINISTERED CLINIC PHARMACY RX: OXYCODONE, TYLENOL AND IBUPROFEN. PATIEN RATES PAIN 5/10 TO VAGINAL REGION. WILL CONTINUE TO MONITOR.
--- NOTE | 2024-09-27 14:59 | EXP.ANES.II ---
[facility] Anesthesia Record Part II Anesthesia Record Part II Discharge Time: 11:47 Destination: Surgical Day Care (OP Surgery) PACU nurse assessment reviewed?: Yes Patient Condition:: Good Anesthesia Complications:: None Swallowing reflex intact?: Yes Airway Patency: Patent Cyanosis?: No Blood Pressure: 113/58 SaO2: 99 Respiratory Rate: 17 Pulse Rate: 74 Temperature: 97.0 F Mental Status: Alert & Oriented Pain level:: 2 Nausea and/or vomitting:: None Intake, IV Amount: 0 Hydration: Adequate
== END 2024-09-27 12:17 | disposition home or self-care (01) ==
PROVIDERS: PCP Nurse Practitioner Family; Visit Provider Obstetrics & Gynecology
PROC: (CPT 58294; principal; 2024-09-27 07:30)
DX: N92.0 Excessive and frequent menstruation with regular cycle (principal); N92.6 Irregular menstruation, unspecified; N81.3 Complete uterovaginal prolapse; N94.10 Unspecified dyspareunia; N94.6 Dysmenorrhea, unspecified; N39.3 Stress incontinence (female) (male); N84.1 Polyp of cervix uteri; N83.12 Corpus luteum cyst of left ovary; R31.9 Hematuria, unspecified; E66.3 Overweight; Z68.29 Body mass index [BMI] 29.0-29.9, adult; Z87.891 Personal history of nicotine dependence; Z87.440 Personal history of urinary (tract) infections; Z90.79 Acquired absence of other genital organ(s); Z87.42 Personal history of other diseases of the female genital tract; Z79.899 Other long term (current) drug therapy
CPT/HCPCS: 58294; 86850; 96374; J0690; J1100; J1200; J1836; J2003; J2004; J2250; J2405; J2704; J3010; J7120

== ENCOUNTER 2025-02-23 10:14 | Outpatient (CLI) | payer BC, SELFPAY ==
--- OUTSIDE RECORDS SUMMARY | 2025-02-23 10:16 | XMS_ITS | Encounter Summary ---
Author Organization [facility] Address [address] [place] [address] Care Team Providers Care Brush Operator Name Role Phone Josie Kinney APRN Primary Care Provider [phone] Encounter Details Date Type Department Care Team (Late st Contact Info) Description 01/05/2023 Orders Only External Location [address] [place] [address] Josie Kinney APRN [facility] [place] [phone] Social History Tobacco Use Types Packs/Day Years Used Date Smoking Tobacco: Never Assessed Comments Unknown Sex and Gender Information Value Date Recorded Sex Assigned at Not on file Legal Sex Female 7:39 PM EDT Gender Identity Not on file Sexual Orientation Not on file documented as of this encounter Plan of Treatment Not on file documented as of this encounter Procedures Procedure Name Priority Date/Time Associated Diagnosis Comments MR HEAD W AND WO IV CONTRAST 01/05/2023 4:23 PM EDT documented in this encounter Results * MR Head w and wo IV Contrast (01/05/2023 4:23 PM EDT) Anatomical Region Laterality Modality Head Magnetic Resonan ce 01/05/2023 4:23 PM EDT Josie Kinney APRN IMG MRI PROCEDURES Final R esult documented in this encounter Visit Diagnoses Not on filedocumented in this encounter Care Teams Brush Operator Relationship Specialty Start Date End Date Josie Kinney APRN [address] [place] [address] PCP - General 03/23/23 documented as of this encounter
--- OUTSIDE RECORDS SUMMARY | 2025-02-23 10:16 | XMS_ITS | Data Portability ---
Author Organization [facility] Address [address] [place] [phone] Assessment Encounter Date Assessment Date Assessment LastModified by Organization Details LastModified Time 01/01/2025 01/01/2025 I ordered an oral steroid, cough and decongestant medication based on patient's symptoms and physical assessment indicating acute bilateral serous otitis media secondary to untreated allergic rhinitis with sinus congestion and postnasal drainage contributing to a sore throat, persistent cough and hoarseness. Instructed patient to use medications as directed and to follow up with primary care if symptoms worsen or not improved in 7 days. Patient verbalized understanding and agreement with plan of care. [email or web address] Not available 01/01/2025 16:08:08 02/19/2025 02/19/2025 Diagnosis UTI -urine culture; will follow up with results and adjust care as indicated. -patient was instructed on the diagnosis. -drink plenty of fluids. -take antibiotics as prescribed. -may add probiotics to help prevent a yeast infection. -if symptoms do not improve in the next 2-3 days, call or follow up as you may need a change in treatment plan. -if fever, severe pain (especially in the flank), vomiting, or other new or worsening sx develop, seek attention immediately. [email or web address] Not available 02/19/2025 15:29:21 Plan of Treatment Reminders Order Date Submit Date Provider Last Modified By Organization Details Last Modified Time Details Appointments None recorded. Lab urinalysis, dipstick 2024 025 [email or web address] [facility], [address], [place], [address], Ph [phone] 10/28/202 5 15:18:35 culture, urine 2024 [place] [facility], [address], [address], [place], [address], 5 06:18:57 streptococc us group A DNA 2024 [email or web address] [facility], [address], [place], [address], Ph [phone] 16:23:19 Referral None recorded. Procedures None recorded. Surgeries None recorded. Imaging None recorded. Medication Orders nitrofurant oin monohydrate /macrocryst als 100 mg capsule 2024 [facility], [address] [place] [address] [address] [place], [id number], 5 16:39:37 promethazin e-DM 6.25 mg-15 mg/5 mL oral syrup 2024 [facility], [address] [place] [address] [address] [place], [id number], 5 16:08:40 Medrol (Duran) 4 mg tablets in a dose pack 2024 [facility], [address] [place] [address] [address] [place], [id number], 5 16:08:40 Stahist AD 25 mg-60 mg tablet 2024 025 [facility], [address] [place] [address] [address] [place], [id number], 5 05:02:03 Patient TargetsNo targets recorded. Patient InstructionsNo instructions recorded. Reason for Referral None Reported. Results Created Date Observation Date Name Description Value Unit Range Abnormal Flag Note LastModifiedBy Organization Detail LastModifiedTime 01/02/2001/01/2025 strep tococ cus group A DNA Strep negati ve Not Available [facility] [address] [facility] [address], [place], [address], Ph [phone] 01/01/2025 16:11:54 02/20/20 25 02/21/2025 URINE CULTU RE, ROUTI NE urine culture, routine FINAL REPORT Not Available [facility] ([facility]) [address] [facility], [place], [address], 02/21/2025 06:18:57 02/20/2002/21/2025 URINE CULTU RE, ROUTI NE result 1 COMMEN T Mixed uroge nital abigail Less than 10,00 0 colon ies/m L Not Available [facility] ([facility]) [address] [facility], [place], [address], 02/21/2025 06:18:57 02/20/20 25 02/19/2025 urina lysis , dipst ick Leukocytes (reference range) negati ve Not Available [facility] [address] [facility] [address], [place], [address], Ph [phone] 02/19/2025 15:08:40 02/20/20 25 02/19/2025 urina lysis , dipst ick Nitrite (reference range:) negati ve Not Available [facility] [address] [facility] [address], [place], [address], Ph [phone] 02/19/2025 15:08:40 02/20/20 25 02/19/2025 urina lysis , dipst ick Urobilinogen (reference range) 0.2 Not Available [facility] [address] [facility] [address], [place], [address], Ph [phone] 02/19/2025 15:08:40 02/20/20 25 02/19/2025 urina lysis , dipst ick Protein (reference range) negati ve Not Available [facility] [address] [facility] [address], [place], [address], Ph [phone] 02/19/2025 15:08:40 02/20/2002/19/2025 urina lysis , dipst ick pH (reference range 5-8.5) 6.0 Not Available [facility] [address] [facility] [address], [place], [address], Ph [phone] 02/19/2025 15:08:40 02/20/20 25 02/19/2025 urina lysis , dipst ick Blood (reference range:) small Not Available [facility] [address] [facility] [address], [place], [address], Ph [phone] 02/19/2025 15:08:40 02/20/2002/19/2025 urina lysis , dipst ick Specific [place] (reference range) 1.015 Not Available [facility] [address] [facility] [address], [place], [address], Ph [phone] 02/19/2025 15:08:40 02/20/20 25 02/19/2025 urina lysis , dipst ick Ketone (reference range) negati ve Not Available [facility] [address] [facility] [address], [place], [address], Ph [phone] 02/19/2025 15:08:40 02/20/20 25 02/19/2025 urina lysis , dipst ick Bilirubin (reference range) negati ve Not Available [facility] [address] [facility] [address], [place], [address], Ph [phone] 02/19/2025 15:08:40 02/20/2002/19/2025 urina lysis , dipst ick Glucose (reference range) negati ve Not Available [facility] [address] [facility] [address], [place], [address], Ph [phone] 02/19/2025 15:08:40 02/20/20 25 02/19/2025 urina lysis , dipst ick Color (reference range: yellow-brown ) Yellow Not Available [facility] [address], [place], [address], Ph [phone] 02/19/2025 15:08:40 Result Notes None recorded. Medical Equipment None Reported. Allergies No known drug allergies Medications Name Sig Start Date Stop Date Status Note LastModified by Organization Details LastModified Time promethazin e-DM 6.25 mg-15 mg/5 mL oral syrup TAKE 5 ML BY MOUTH EVERY 4 HOURS MAY CAUSE DROWSINES S active Not Available Not Available No t Available fluoxetine 10 mg capsule TAKE ONE CAPSULE BY MOUTH DAILY active Not Available Not Available No t Available methylpredn isolone 4 mg tablets in a dose pack TAKE ACCORDING TO PACKAGE INSTRUCTI ONS --TAKE WITH FOOD-- -- FINISH ALL MEDICINE -- active Not Available Not Available No t Available nitrofurant oin monohydrate /macrocryst als 100 mg capsule Take 1 capsule every 12 hours by oral route as directed for 10 days. 2024 active Not Available Not Available Not Avai lable Stahist AD 25 mg-60 mg tablet Take 1 tablet every 12 hours by oral route for 15 days. 01/23 completed Not Available Not Available Not Available Vitals Date Recorded Body weight Body temperature Oxygen saturation Oxygen saturation in Arterial blood by Pulse oximetry Heart rate Systolic And Diastolic Provider Name and Address Organization Details Last Updated DateTime 5 58685.9 1 g 98.3 [degF] 97 % 97 % 53 /min 120/69 mm[Hg] Zofia Link [facility] [place] 5 15:55:10 Date Recorded Body weight Body temperature Oxygen saturation Oxygen saturation in Arterial blood by Pulse oximetry Heart rate Respiratory rate Systolic And Diastolic Provider Name and Address Organization Details Last Updated DateTime 5 90875.4 7 g 97.7 [degF] 98 % 98 % 66 /min 66 /min 124/65 mm[Hg] [place]rossy Mcneildez [facility] & [place] 5 15:08:09 Social History None recorded. Functional Status None recorded. Mental Status None recorded. Family History Nothing Reported. Medical History No medical history recorded. Gynecological HistoryNo gynecological history recorded. Obstetrics History GPAL:G 0 P 0 0 0 0 Immunizations Vaccine Type Date Status Note Provider Nam e and Address Organization Details Recorded Time Hep A, adult 8 completed Not Available [facility] 02/19/2025 15:00:21 Hep A, adult 9 completed Not Available [facility] 02/19/2025 15:00:21 Influenza, split virus, quadrivalent, preservative 9 completed Not Available [facility] 02/19/2025 15:00:21 Influenza, split virus, quadrivalent, preservative 0 completed Not Available [facility] 02/19/2025 15:00:21 COVID-19, mRNA, LNP-S, PF, 100 mcg/0.5mL dose or 50 mcg/0.25mL dose 1 completed Not Available [facility] 02/19/2025 15:00:21 COVID-19, mRNA, LNP-S, PF, 100 mcg/0.5mL dose or 50 mcg/0.25mL dose 1 completed Not Available [facility] 02/19/2025 15:00:21 Influenza, split virus, quadrivalent, PF 1 completed Not Available [facility] 02/19/2025 15:00:21 COVID-19, mRNA, LNP-S, PF, 100 mcg/0.5mL dose or 50 mcg/0.25mL dose 1 completed Not Available [facility] 02/19/2025 15:00:21 Influenza, split virus, quadrivalent, PF 2 completed Not Available [facility] 02/19/2025 15:00:21 Past Encounters Encounter ID Performer Location Encounter Start Date Encounter Closed Date Diagnosis/Indication Diagnosis SNOMED-CT Code Diagnosis ICD10 Code Diagnosis IMO Codes Diagnosis Note [id number] [address]ADA [address] [facility] [address] [place] [address] 01/01/2025 15:30:35 01/01/2025 16:32:04 Acute allergic serous otitis media of bilateral middle ears 4132428863 528569 H65.113 [id number] Acute cough 3703995660 01280279 R05.9 [id number] Sore throat 251547489 2.9 29544 [id number] Francisco Ruff MD [facility] [address] [facility] [address] [place] [address] 02/19/2025 14:58:15 02/19/2025 15:42:54 Urinary symptoms 202601949 R39.9 [id number] Health Concerns Section Related Observation LastModified by Organization Detai ls LastModified Time None Recorded Concern Status LastModified by Organization Details LastModified Time None Recorded Advance Directives Directive None Recorded Payers Insurance Date Sequence Insurance Name Policy Number Policy Armendariz Covered Member ID Armendariz Member ID Guarantor Name 02/19/2025 1 [employer] [id number] Patricia Lynnin [id number] Patricia Rodriguez Notes Date Note Type Note Provider Name and Address Organization Details Recorded Time 01/01/2025 text/html ROS as noted in the HPI 44-year-old female patient presents to clinic with complaint of sore throat and cough over the past few days. Denies any known exposure to anyone with similar symptoms. Denies fever, shortness of breath or GI symptoms. Reports normal appetite and good fluid intake. Has not taken any qdfw-xpy-vwonyks medications for symptoms. MARE FISH, DALI [address] [facility], [place], [address], [place] [facility] [place] [facility] [place] 01/01/2025 16:23:41 02/19/2025 text/html Lower Urinary Tr act Symptoms (LUTS)Reported by PatientHPIFor associated symptoms, patient reportsabdominal pain,low back pain,urgency, andfrequencybut reportsno groin pain,no pelvic pain,no flank pain,no chills,no fever,no constipation,no diarrhea,no nausea,no vomiting,no temperaure,good force of stream,no straining,no post void dribbling,no hesitancy,empties well,no dysuria,no incontinence,no perineal pain,no suprapubic pain,no costovertebral angle tenderness,no nocturia,no urine odor,no gross hematuria,no abnormal vaginal discharge, andno vaginal itching or burning. For location, patient reportsbladder. For quality, patient reportsdullandaching. For severity, patient reportsworsening. For onset/timing, patient reportsconstant. For context, patient reportsdenies excessive fluid intake,denies excessive caffeine intake,no dyspareunia, anddenies new medication treatment. For duration, (symptoms began yesterday). For alleviating factors, (none). For aggravating factors, (none).ROS as noted in the HPI EARLE HADDAD, DALI [address] [facility], [place], [address], [facility] - [place] 02/19/2025 15:29:25 OBGyn Episode No OBEpisode recorded.
--- OUTSIDE RECORDS SUMMARY | 2025-02-23 10:16 | XMS_ITS | Continuity of Care Document ---
Author Organization Formerly [facility] Address [address] [facility] [address] [place] [address] Assessment Encounter Date Assessment Date Assessment LastModified [...] of care. [email or web address] Not available 01/01/2025 16:08:08 Plan of Treatment Reminders Order Date Submit Date Provider Last Modified By Organization Details Last Modified Time Details Appointments None recorded. Lab streptococc us group A DNA 2024 025 [email or web address] [facility], [address] [facility] [address], [place], [address], Ph [phone] 16:23:19 Referral None recorded. Procedures None recorded. Surgeries None recorded. Imaging None recorded. Medication Orders promethazin e-DM 6.25 mg-15 mg/5 mL oral syrup 2024 025 [facility], [address] [facility] [facility] [address] [facility] [address], [place], [id number], 5 16:08:40 Medrol (Duran) 4 mg tablets in a dose pack 2024 025 [facility], [address] [place] [address] [address] [place], [id number], 16:08:40 Stahist AD 25 mg-60 mg tablet 2024 025 [facility], [address] [place] [address] E [place] Ló[place], [id number], 05:02:03 Patient TargetsNo targets recorded. Patient InstructionsNo instructions recorded. Reason for Referral None Reported. Results Created Date Observation Date Name Description Value Unit Range Abnormal Flag Note LastModifiedBy Organization Detail LastModifiedTime 01/02/2001/01/2025 strep tococ cus group A DNA Strep negati ve Not Available [facility] [address] [facility] [address], [place], [address], Ph [phone] 01/01/2025 16:11:54 Result Notes None recorded. Medical Equipment None [...] Address Organization Details Last Updated DateTime 5 91315.9 1 g 98.3 [degF] 97 % 97 % 53 /min 120/69 mm[Hg] Zofia Link [facility] & [place] 5 15:55:10 Social History None recorded. Functional Status None recorded. Mental Status None recorded. Family History Nothing Reported. Medical History No medical history recorded. Gynecological HistoryNo gynecological history recorded. Obstetrics History GPAL:G 0 P 0 0 0 0 Immunizations Vaccine Type Date Status Note Provider Nam e and Address Organization Details Recorded Time Hep A, adult 8 completed Not Available [facility] 02[facility]25 15:00:21 Hep A, adult 9 completed Not Available [facility] 02/19/2025 15:00:21 Influenza, split virus, quadrivalent, preservative 9 completed Not Available [facility] 02/19/2025 15:00:21 Influenza, split virus, quadrivalent, preservative 0 completed Not Available [facility] 02/19/2025 15:00:21 COVID-19, mRNA, LNP-S, PF, 100 mcg/0.5mL dose or 50 mcg/0.25mL dose 1 completed Not Available [facility] 02/19/2025 15:00:21 COVID-19, mRNA, LNP-S, PF, 100 mcg/0.5mL dose or 50 mcg/0.25mL dose 1 completed Not Available [facility] 02/19/2025 15:00:21 Influenza, split virus, quadrivalent, PF 1 completed Not Available [facility] 02/19/2025 15:00:21 COVID-19, mRNA, LNP-S, PF, 100 mcg/0.5mL dose or 50 mcg/0.25mL dose 1 completed Not Available [facility] 02/19/2025 15:00:21 Influenza, split virus, quadrivalent, PF 2 completed Not Available [facility] 02/19/2025 15:00:21 Past Encounters Encounter ID Performer Location Encounter Start Date Encounter Closed Date Diagnosis/Indication Diagnosis SNOMED-CT Code Diagnosis ICD10 Code Diagnosis IMO Codes Diagnosis Note [id number] MARE FISH NP [facility] [address] [place] [address] 01/01/2025 15:30:35 01/01/2025 16:32:04 Acute allergic serous otitis media of bilateral middle ears 6995335725 725303 H65.113 [id number] Acute cough 7282209734 67473616 R05.0 [id number] Sore throat 841414928 J0 2.9 27804 Health Concerns Section Related Observation LastModified by Organization Detai ls LastModified Time None Recorded Concern Status LastModified by Organization Details LastModified Time None Recorded Payers Encounter Date Sequence Insurance Name Policy Number Policy Armendariz Covered Member ID Armendariz Member ID Guarantor Name 01/01/2025 1 [place] [id number] Patricia Rodriguez [id number] Patricia Rodriguez Notes Date Note Type [...] good fluid intake. Has not taken any wwgd-vry-zhrvrwb medications for symptoms. MARE FISH NP [address] [facility], [place], [address], [facility] [place] & [place] 01/01/2025 16:23:41 OBGyn Episode No OBEpisode recorded.
--- OUTSIDE RECORDS SUMMARY | 2025-02-23 10:16 | XMS_ITS | Encounter Summary ---
Author Organization [facility] Address [address] [place] [address] Care Team Providers Care Railroad Repairer Name Role Phone Josie Kinney APRN Primary Care Provider +1- [phone] Encounter Details Date Type Department Care Team (Late st Contact Info) Description 02/23/2023 Orders Only External Location [address] [place] [address] Provider, External Social History Tobacco Use Types Packs/Day Years [...] Procedure Name Priority Date/Time Associated Diagnosis Comments CT ANGIO HEAD 02/23/2023 2:14 PM EDT documented in this encounter Results * CT Angio Head (02/23/2023 2:14 PM EDT) Anatomical Region Laterality Modality Lummi of [place] Computed Tomogr aphy 02/23/2023 2:14 PM EDT us External Provider IMG CT PROCEDURES Final Result documented in this encounter Visit Diagnoses Not on filedocumented in this encounter Care Teams Railroad Repairer Relationship Specialty Start Date End Date Josie Kinney APRN [address] [facility] [place] [address] PCP - General 03/23/23 documented as of this encounter
--- OUTSIDE RECORDS SUMMARY | 2025-02-23 10:17 | XMS_ITS | Continuity of Care Document ---
Author Organization [facility] Address [address] [facility] [address] [place] [address] Assessment Encounter Date Assessment Date Assessment LastModified by Organization Details LastModified Time 02/19/2025 02/19/2025 Diagnosis UTI -urine culture; will [...] recorded. Lab urinalysis, dipstick 2024 025 [email or web address] [facility], [address] [facility] [address], [place], [address], Ph [phone] 15:18:35 culture, urine 2024 025 SHANEL [facility], [address], [address], [place], [address], 06:18:57 Referral None recorded. Procedures None recorded. Surgeries None recorded. Imaging None recorded. Medication Orders nitrofurant oin monohydrate /macrocryst als 100 mg capsule 2024 025 [facility], [address], [place], [id number], 16:39:37 Patient TargetsNo targets recorded. Patient InstructionsNo instructions recorded. Reason for Referral None Reported. Results Created Date Observation Date Name Description Value Unit Range Abnormal Flag Note LastModifiedBy Organization Detail LastModifiedTime 02/20/2002/21/2025 URINE CULTU RE, ROUTI NE urine culture, routine FINAL REPORT Not Available [facility] ([facility]) [address] [facility], [place], [address], 02/21/2025 06:18:57 02/20/2002/21/2025 URINE CULTU RE, ROUTI NE result 1 COMMEN T Mixed uroge nital abigail Less than 10,00 0 colon ies/m L Not Available [facility] ([facility]) [address] [facility], [place], [address], 02/21/2025 06:18:57 02/20/2002/19/2025 urina lysis , dipst ick Leukocytes (reference range) negati ve Not Available [facility] [address] [facility] [address], [place], [address], Ph [phone] 02/19/2025 15:08:40 02/20/2002/19/2025 urina lysis , dipst ick Nitrite (reference range:) negati ve Not Available [facility] [address] [facility] [address], [place], [address], Ph [phone] 02/19/2025 15:08:40 02/20/2002/19/2025 urina lysis , dipst ick Urobilinogen (reference range) 0.2 Not Available [facility] [address] [facility] [address], [place], [address], Ph [phone] 02/19/2025 15:08:40 02/20/2002/19/2025 urina lysis , dipst ick Protein (reference range) negati ve Not Available [facility] [address] [facility] [address], [place], [address], Ph [phone] 02/19/2025 15:08:40 02/20/2002/19/2025 urina lysis , dipst ick pH (reference range 5-8.5) 6.[address] [facility] [address] [facility] [address], [place], [address], Ph [phone] 02/19/2025 15:08:40 02/20/2002/19/2025 urina lysis , dipst ick Blood (reference range:) small Not Available [facility] [address] [facility] [address], [place], [address], Ph [phone] 02/19/2025 15:08:40 02/20/2002/19/2025 urina lysis , dipst ick Specific [place] (reference range) 1.015 Not Available [facility] [address] [facility] [address], [place], [address], Ph [phone] 02/19/2025 15:08:40 02/20/2002/19/2025 urina lysis , dipst ick Ketone (reference range) negati ve Not Available [facility] [address] [facility] [address], [place], [address], Ph [phone] 02/19/2025 15:08:40 02/20/2002/19/2025 urina lysis , dipst ick Bilirubin (reference range) negati ve Not Available [facility] [address] [facility] [address], [place], [address], Ph [phone] 02/19/2025 15:08:40 02/20/2002/19/2025 urina lysis , dipst ick Glucose (reference range) negati ve Not Available [facility] [address] [facility] [address], [place], [address], Ph [phone] 02/19/2025 15:08:40 02/20/2002/19/2025 urina lysis , dipst ick Color (reference range: yellow-brown ) Yellow Not Available [facility] [address], [place], [address], Ph [phone] 02/19/2025 15:08:40 Result Notes None recorded. Medical [...] Address Organization Details Last Updated DateTime 5 620[address].4 7 g 97.7 [degF] 98 % 98 % 66 /min 66 /min 124/65 mm[Hg] Shirley Garcia [facility] & [place] 15:08:09 Social History None recorded. Functional Status None recorded. Mental Status None recorded. Family History Nothing Reported. Medical History No medical history recorded. Gynecological HistoryNo gynecological history recorded. Obstetrics History GPAL:G 0 P 0 0 0 0 Immunizations Vaccine Type Date Status Note Provider Nam e and Address Organization Details Recorded Time Hep A, adult 8 completed Not Available [facility] 02/19/2025 15:00:21 Hep A, adult 9 completed Not Available [facility] 02/19/2025 15:00:21 Influenza, split virus, quadrivalent, preservative 9 completed Not Available [facility] 02/19/2025 15:00:21 Influenza, split virus, quadrivalent, preservative 0 completed Not Available [facility] 02/19/2025 15:00:21 COVID-19, mRNA, LNP-S, PF, 100 mcg/0.5mL dose or 50 mcg/0.25mL dose 1 completed Not Available [facility] 02/19/2025 15:00:21 COVID-19, mRNA, LNP-S, PF, 100 mcg/0.5mL dose or 50 mcg/0.25mL dose 1 completed Not Available [facility] 02/19/2025 15:00:21 Influenza, split virus, quadrivalent, PF 1 completed Not Available [facility] 02/19/2025 15:00:21 COVID-19, mRNA, LNP-S, PF, 100 mcg/0.5mL dose or 50 mcg/0.25mL dose 1 completed Not Available [facility] 02/19/2025 15:00:21 Influenza, split virus, quadrivalent, PF 2 completed Not Available [facility] 02/19/2025 15:00:21 Past Encounters Encounter ID Performer Location Encounter Start Date Encounter Closed Date Diagnosis/Indication Diagnosis SNOMED-CT Code Diagnosis ICD10 Code Diagnosis IMO Codes Diagnosis Note [id number] MD BETTE Robb [facility] [address] [place] [address] 02/19/2025 14:58:15 02/19/2025 15:42:54 Urinary symptoms 428741554 R39.9 [id number] Health Concerns Section Related Observation LastModified by Organization Detai ls LastModified Time None Recorded Concern Status LastModified by Organization Details LastModified Time None Recorded Payers Encounter Date Sequence Insurance Name Policy Number Policy Armendariz Covered Member ID Armendariz Member ID Guarantor Name 02/19/2025 1 [employer] (PPO) [id number] Patricia Rodriguez [id number] Patricia Rodriguez Notes Date Note Type Note Provider Name and Address Organization Details Recorded Time 02/19/2025 text/html Lower Urinary Tr act Symptoms [...] noted in the HPI E[facility]LE [facility]AD, DALI [address] , [place], [address], [place] - [place] - [place] & [place] 02/19/2025 15:29:25 OBGyn Episode No OBEpisode recorded.
--- OUTSIDE RECORDS SUMMARY | 2025-02-23 10:17 | XMS_ITS | Encounter Summary ---
Author Organization Healthcare Address [address] [place] [address] Care Team Providers Care Auto Servicer Name Role Phone Josie Kinney APRN Primary Care Provider +1- [phone] Encounter Details Date Type Department Care Team (Late st Contact Info) Description 03/15/2023 Community [facility] [address] [place] [address] Quinton Fowler APRN [address] [place] [address] Social History Tobacco Use Types Packs/Day Years Used Date Smoking Tobacco: Never Assessed Comments Unknown Sex and Gender Information Value Date Recorded Sex Assigned at Not on file Legal Sex Female 7:39 PM EDT Gender Identity Not on file Sexual Orientation Not on file documented as of this encounter Plan of Treatment Not on file documented as of this encounter Visit Diagnoses Not on filedocumented in this encounter Care Teams Auto Servicer Relationship Specialty Start Date End Date Josie Kinney APRN [facility] [facility] [address] [place] [address] PCP - General 03/23/23 documented as of this encounter
--- OUTSIDE RECORDS SUMMARY | 2025-02-23 10:17 | XMS_ITS | Clinical Summary ---
Author Organization [facility] Address [address] [place] [id number] Care Team Providers Care Supervisory Air Intercept Controller Name Role Phone Josie Kinney ADRIANNE Primary Care Provider +1- [phone] Allergies No known active allergies Medications No known medications Social History Tobacco Use Types Packs/Day Years Used Date Smoking Tobacco: Never Assessed Comments Unknown Sex and Gender Information Value Date Recorded Sex Assigned at Not on file Legal Sex Female 7:39 PM EDT Gender Identity Not on file Sexual Orientation Not on file Last Filed Vital Signs Vital Sign Reading Time Taken Comments Blood Pressure 135/84 05/06/2023 9:37 AM EST Pulse 71 05/06/2023 9:37 AM EST Temperature 36.6 C (97.8 F) 03/24/2023 1:36 AM EST Respiratory Rate 16 03/24/2023 1:36 AM EST Oxygen Saturation 100% 03/24/2023 1:36 AM EST Inhaled Oxygen Concentration - - Weight 75.8 kg (167 lb) 05/06/2023 9:37 AM EST Height 167.6 cm (5' 6 ) 05/06/2023 9:37 AM EST Body Mass Index 26.95 05/06/2023 9:37 AM EST Plan of Treatment Health Maintenance Due Date Last Done Comments [facility]-Depression Screening 1980 [facility]-Infant/Child/Adol SDOH Screenings 1980 [facility]-Varicella Vaccines (1 of 2 - 13+ 2-dose series) 1993 [facility]- SDOH Screenings 1998 [facility]-Adult SDOH Screenings 1998 [facility]-DTaP,Tdap,and Td Vaccines (1 - Tdap) 09/25/1999 [facility]-Hepatitis B Vaccines (1 of 3 - 19+ 3-dose series) 09/25/1999 [facility]-Pap Smear 2001 HPV Vaccines (1 - 3-dose SCDM series) 09/25/2007 [facility]-Cervical Cancer Screening 2010 [facility]-HPV/Cotest 2010 [id number] Vaccine (4 - season) 2024 02/27/2021, 06/18/2020, 05/21/2020 [facility]-Influenza Vaccine (#1) 12/24/202401/30, 02/17/2021, 02/12/2020, Additional history exists [facility]-Zoster Vaccines (1 of 2) 2030 [facility]-Hepatitis A Vaccines Aged Out 09/07/2018, 01/24 No longer eligible based on patient's age to complete this topic [facility]-HIV Screening Completed 03/23/2023 [facility]-Hepatitis C Screening Completed 03/23/2023 [facility]-Obesity Intervention Completed 05/06/2023, 04/25 [facility]-HIB Vaccines Aged Out No longer e ligible based on patient's age to complete this topic [facility]-IPV Vaccines Aged Out No longer e ligible based on patient's age to complete this topic [facility]-Pneumococcal Vaccine: Pediatrics (0 to 5 Years) and At-Risk Patients (6 to 49 Years) Aged Out No longer eligible based on patient's age to complete this topic [facility]-Rotavirus Vaccines Aged Out No lo nger eligible based on patient's age to complete this topic Procedures Procedure Name Priority Date/Time Associated Diagnosis Comments HEPATITIS C ANTIBODY - ED W/REFLEX TO HCV QUANT PCR STAT 03/23/2023 3:59 PM EST ED HIV 1/2 ANTIBODY/ANTIGEN SCREEN WITH REFLEX TO HIV I/II DIFFERENTIATION STAT 03/23/2023 3:59 PM EST from Last 3 Months or Most Recently Relevant to Health Maintenance Results * ED HIV 1/2 Antibody/Antigen Screen w/Reflex to HIV 1/2 Differentiation (03/23/2023 3:59 PM EST) HIV 1 & 2 Antibody/Antigen Screen Non Reactive Non Reactive 03/23/2023 4:58 PM EST [facility] Comment:Screening for HIV 1 & 2 antibodies, and P24 antigen is NONREACTIVE. No confirmatory testing is required. Blood Venous blood specimen / Unknown Venipuncture / Unknown 03/23/2023 3:59 PM EST 03/23/2023 4:11 PM EST Marvin Kamara MD LAB BLOOD ORDERABLES Final Res ult [facility] [address] [place] [address] * Hepatitis C Antibody - ED (03/23/2023 3:59 PM EST) [facility] Hepatitis C Antibody Negative Negative 03/23/2023 4:58 PM EST [facility]ALTH[facility]ARE [facility] Blood Venous blood specimen / Unknown Venipuncture / Unknown 03/23/2023 3:59 PM EST 03/23/2023 4:11 PM EST Marvin Kamara MD LAB BLOOD ORDERABLES Final Res ult Performing Organization Address City/[facility] Co de Phone Number HEALTHCARE LAB [address] [place] [address] from Last 3 Months or Most Recently Relevant to Health Maintenance Insurance [facility] Care Teams Supervisory Air Intercept Controller Relationship Specialty Start Date End Date Josie Kinney APRN [address] [facility] [address] [place] [address] [facility] - General 03/23/23
[2025-02-23 10:23] LABS: Microscopic, Urine URINE MICROSCOPIC (MICROSCOPIC)
[2025-02-23 11:07] LABS: Hematocrit 42.9 % (37.0-47.0); Hemoglobin 14.3 g/dL (12.2-16.2); Immature Granulocytes % 0.3 %; Mean Corpuscular HGB Conc 33.3 g/dL (31.8-35.4); Mean Corpuscular Hemoglobin 29.7 pg (27.0-31.2); Mean Corpuscular Volume 89.0 fl (81-99); Nucleated Red Blood Cells % 0 %; Platelet Count 412 K/mm3 (142-424); Red Blood Count 4.82 M/mm3 (4.20-5.40); Red Cell Distribution Width-SD 42.4 fL; White Blood Count 8.9 K/mm3 (4.8-10.8)
[2025-02-23 11:34] LABS: Alanine Aminotransferase 18 U/L (12-78); Albumin Level 4.1 g/dl (3.5-5.0); Albumin/Globulin Ratio 1.1 (1.1-1.8); Alkaline Phosphatase 105 U/L (38-126); Anion Gap 12.4 mEq/L (5-15); Aspartate Amino Transferase 24 U/L (14-36); Bilirubin,Total 0.6 mg/dl (0.2-1.3); Blood Urea Nitrogen 13 mg/dl (7-17); Calcium 9.3 mg/dl (8.4-10.2); Carbon Dioxide 28 mmol/L (22.0-30.0); Chloride 101 mmol/L (98-107); Creatinine,Serum 1.00 mg/dl (0.52-1.04); Estimated Glomerular Filt Rate 60 ml/min (>60); GFR (African American) 73 ML/MIN (>60); Globulin 3.7 g/dL (1.3-3.2); Glucose 100 mg/dl (74-100); Potassium 4.4 mmoL/L (3.5-5.1); Sodium 137 mmol/L (136-145); Total Protein,Serum 7.8 g/dl (6.3-8.2)
[2025-02-23 12:09] LABS: Ferritin 23.8 ng/ml (6.24-137)
[2025-02-23 12:43] LABS: Hemoglobin A1C 5.2 % (4.0-6.0)
[2025-02-23 13:36] LABS: Bilirubin,Urine Negative (Negative); Color,Urine YELLOW (Yellow); Glucose,Urine (UA) Negative (Negative); Ketones,Urine Negative (Negative); Leukocyte Esterase,Urine Negative (Negative); PH,Urine 6.5 (5.0-8.5); Protein,Urine Negative (Negative); Specific Gravity, Urine 1.015 (1.005-1.030); Urobilinogen,Urine 0.2 EU/dl (0.2)
[2025-02-23 14:22] LABS: Amorphous Sediment,Urine Trace /lpf; Bacteria,Urine Trace /lpf; RBC,Urine Occasional #/hpf (0-3); Squamous Epithelial Cell,Urine Occasional #/hpf (0-5)
== END 2025-02-23 23:59 | disposition home or self-care (01) ==
LOC: LAB 10:15
PROVIDERS: PCP Nurse Practitioner Family; Visit Provider Nurse Practitioner Family
DX: R31.29 Other microscopic hematuria (principal); R79.89 Other specified abnormal findings of blood chemistry; R35.0 Frequency of micturition
CPT/HCPCS: 36415; 80053; 81001; 82043; 82570; 82728; 83036; 85025

== ENCOUNTER 2025-02-28 15:43 | Outpatient (CLI) | payer BC, SELFPAY ==
--- NOTE | 2025-02-28 15:45 | US_ITS ---
FINAL REPORT TECHNIQUE: Ultrasound images of the kidneys were obtained. CLINICAL HISTORY: MICROSCOPIC HEMATURIA AND URINARY FREQUENCY COMPARISON: None FINDINGS: The right kidney measures 11.5 cm in length. It is normal in echogenicity. There is no hydronephrosis. The left kidney measures 10.1 cm in length. It is normal in echogenicity. There is no hydronephrosis. IMPRESSION: No hydronephrosis. Reviewed, Interpreted and Dictated by Nigel Lo MD Transcribed by Seble Valle Authenticated and [facility]
--- OUTSIDE RECORDS SUMMARY | 2025-02-28 15:45 | XMS_ITS | Encounter Summary ---
Author Organization [facility] Address [address] [place] [address] Care Team Providers Care Residential Construction Instructor Name Role Phone Josie Kinney APRN Primary Care Provider +1- [phone] Encounter Details Date Type Department Care Team (Late st Contact Info) Description 02/23/2023 Orders Only External Location [address] [place] [address] Provider, External Social History Tobacco Use Types [...] 2:14 PM EDT) Anatomical Region Laterality Modality [place] of [place] Computed Tomogr aphy 02/23/2023 2:14 PM EDT us External Provider IMG CT PROCEDURES Final Result documented in this encounter Visit Diagnoses Not on filedocumented in this encounter Care Teams Residential Construction Instructor Relationship Specialty Start Date End Date Josie Kinney APRN [address] [facility] [place] [address] PCP - General 03/23/23 documented as of this encounter
--- OUTSIDE RECORDS SUMMARY | 2025-02-28 15:45 | XMS_ITS | Encounter Summary ---
Author Organization [facility] Address [address] [place] [address] Care Team Providers Care Bagger And Stock Handler Helper Name Role Phone Josie Kinney APRN Primary Care Provider +1- [phone] Encounter Details Date Type Department Care Team (Late st Contact Info) Description 01/05/2023 Orders Only External Location [address] [place] [address] Josie Kinney APRN [facility] [place] [id number] Social History Tobacco Use Types Packs/Day Years [...] on filedocumented in this encounter Care Teams Bagger And Stock Handler Helper Relationship Specialty Start Date End Date Josie Kinney APRN [address] [place] [address] PCP - General 03/23/23 documented as of this encounter
--- OUTSIDE RECORDS SUMMARY | 2025-02-28 15:46 | XMS_ITS | Continuity of Care Document ---
Author Organization [facility] Address [address] [facility] [address] [place] [address] Assessment Encounter Date Assessment Date Assessment LastModified [...] recorded. Lab urinalysis, dipstick 2024 025 [email or web address] [facility], [address] [facility] [address], [place], [address], Ph [phone] 15:18:35 culture, urine 2024 025 SHANEL [facility], [address], [address], [place], [address], 06:18:57 Referral None recorded. Procedures None recorded. Surgeries None recorded. Imaging None recorded. Medication Orders nitrofurant oin monohydrate /macrocryst als 100 mg capsule 2024 025 [facility], [address], [place], [id number], 16:39:37 Patient TargetsNo targets recorded. Patient InstructionsNo instructions recorded. Reason for Referral None Reported. Results Created Date Observation Date Name Description Value Unit Range Abnormal Flag Note LastModifiedBy Organization Detail LastModifiedTime 02/20/2002/21/2025 URINE CULTU RE, ROUTI NE urine culture, routine FINAL REPORT Not Available [facility] ([facility]) [address] [facility], [place], [address], 02/21/2025 06:18:57 02/20/2002/21/2025 URINE CULTU RE, ROUTI NE result 1 COMMEN T Mixed uroge nital abigail Less than 10,00 0 colon ies/m L Not Available [facility] ([facility]) [address] [facility], [place], [address], 02/21/2025 06:18:57 02/20/2002/19/2025 urina lysis , dipst ick Leukocytes (reference range) negati ve Not Available [facility] [address] [facility] [address], [place], [address], Ph [phone] 02/19/2025 15:08:40 02/20/2002/19/2025 urina lysis , dipst ick Nitrite (reference range:) negati ve Not Available [facility] [address] [facility] [address], [place], [address], Ph [phone] 02/19/2025 15:08:40 02/20/2002/19/2025 urina lysis , dipst ick Urobilinogen (reference range) 0.2 Not Available [facility] [address] [facility] [address], [place], [address], Ph [phone] 02/19/2025 15:08:40 02/20/2002/19/2025 urina lysis , dipst ick Protein (reference range) negati ve Not Available [facility] [address] [facility] [address], [place], [address], Ph [phone] 02/19/2025 15:08:40 02/20/2002/19/2025 urina lysis , dipst ick pH (reference range 5-8.5) 6.0 Not Available [facility] [address] [facility] [address], [place], [address], Ph [phone] 02/19/2025 15:08:40 02/20/2002/19/2025 urina lysis , dipst ick Blood (reference range:) small Not Available [facility] [address] [facility] [address], [place], [address], Ph [phone] 02/19/2025 15:08:40 02/20/2002/19/2025 urina lysis , dipst ick Specific [place] (reference range) 1.015 Not Available [facility] [address] [facility] [address], [place], [address], Ph [phone] 02/19/2025 15:08:40 02/20/2002/19/2025 urina lysis , dipst ick Ketone (reference range) negati ve Not Available [facility] [address] [facility] [address], [place], [address], Ph [phone] 02/19/2025 15:08:40 02/20/2002/19/2025 urina lysis , dipst ick Bilirubin (reference range) negati ve Not Available [facility] [address] [facility] [address], [place], [address], Ph [phone] 02/19/2025 15:08:40 02/20/2002/19/2025 urina lysis , dipst ick Glucose (reference range) negati ve Not Available [facility] [address] [facility] [address], [place], [address], Ph [phone] 02/19/2025 15:08:40 02/20/2002/19/2025 urina lysis , dipst ick Color (reference range: yellow-brown ) Yellow Not Available [facility] [address], [place], [address], Ph [phone] 02/19/2025 15:08:40 Result Notes None recorded. Medical [...] Address Organization Details Last Updated DateTime 5 14303.4 7 g 97.7 [degF] 98 % 98 % 66 /min 66 /min 124/65 mm[Hg] Shirley Garcia [facility] & [place] 15:08:09 Social History None recorded. Functional Status [...] Hep A, adult 9 completed Not Available [facility] 02/19/2025 15:00:21 Influenza, split virus, quadrivalent, preservative 9 completed Not Available [facility] 02/19/2025 15:00:21 Influenza, split virus, quadrivalent, preservative 0 completed Not Available [facility] 02/19/2025 15:00:21 COVID-19, mRNA, LNP-S, PF, 100 mcg/0.5mL dose or 50 mcg/0.25mL dose 1 completed Not Available [facility] 02/19/2025 15:00:21 COVID-19, mRNA, LNP-S, PF, 100 mcg/0.5mL dose or 50 mcg/0.25mL dose 1 completed Not Available [facility] 02/19/2025 15:00:21 Influenza, split virus, quadrivalent, PF 1 completed Not Available [facility] 02/19/2025 15:00:21 COVID-19, mRNA, LNP-S, PF, 100 mcg/0.5mL dose or 50 mcg/0.25mL dose 1 completed Not Available [facility] 02/19/2025 15:00:21 Influenza, split virus, quadrivalent, PF 2 completed Not Available [facility] 02/19/2025 15:00:21 Past Encounters Encounter ID Performer Location Encounter Start Date Encounter Closed Date Diagnosis/Indication Diagnosis SNOMED-CT Code Diagnosis ICD10 Code Diagnosis IMO Codes Diagnosis Note [id number] MD BETTE Robb [facility] [address] [place] [address] 02/19/2025 14:58:15 02/19/2025 15:42:54 Urinary symptoms 295715967 R39.9 [id number] Health Concerns Section Related Observation LastModified by Organization Detai ls LastModified Time None Recorded Concern Status LastModified by Organization Details LastModified Time None Recorded Payers Encounter Date Sequence Insurance Name Policy Number Policy Armendariz Covered Member ID Armendariz Member ID Guarantor Name 02/19/2025 1 [employer]MARCUS (PPO) [id number] Patricia Rodriguez [id number] Patricia Rodriguez Notes Date Note Type [...] noted in the HPI EARLE HADDAD, DALI [address] , [place], [address], [place] - [place] - [place] & [place] 02/19/2025 15:29:25 OBGyn Episode No OBEpisode recorded.
--- OUTSIDE RECORDS SUMMARY | 2025-02-28 15:46 | XMS_ITS | Data Portability ---
Author Organization [facility] [place] [facility] Address [address] [place] [address] Assessment Encounter Date Assessment Date Assessment LastModified [...] recorded. Lab urinalysis, dipstick 2024 025 [email or web address] [facility], [address], [place], [address], Ph [phone] 10/28/202 5 15:18:35 culture, urine 2024 ONTARIO [facility], [address], [address], [place], [address], 5 06:18:57 streptococc us group A DNA 2024 [email or web address] [facility], [address], [place], [address], Ph [phone] 16:23:19 Referral None recorded. Procedures None recorded. Surgeries None recorded. Imaging None recorded. Medication Orders nitrofurant oin monohydrate /macrocryst als 100 mg capsule 2024 [facility], [address] [place] [address] [address] [place], [id number], 5 16:39:37 promethazin e-DM 6.25 mg-15 mg/5 mL oral syrup 2024 [facility], [address] [place] [address] [address] [place], [id number], 5 16:08:40 Medrol (Duran) 4 mg tablets in a dose pack 2024 [facility], [address] [place] [address] [address] [place], [id number], 5 16:08:40 Stahist AD 25 mg-60 mg tablet 2024 025 [facility], [address] [place] [address] [address] [place], [id number], 5 05:02:03 Patient TargetsNo targets recorded. Patient InstructionsNo instructions recorded. Reason for Referral None Reported. Results Created Date Observation Date Name Description Value Unit Range Abnormal Flag Note LastModifiedBy Organization Detail LastModifiedTime 01/02/2001/01/2025 strep tococ cus group A DNA Strep negati ve Not Available [facility] [address] [facility] [address], [place], [address], Ph [phone] 01/01/2025 16:11:54 02/20/20 25 02/21/2025 URINE CULTU RE, ROUTI NE urine culture, routine FINAL REPORT Not Available [facility] ([facility]) [address] [facility], [place], [address], 02/21/2025 06:18:57 02/20/2002/21/2025 URINE CULTU RE, ROUTI NE result 1 COMMEN T Mixed uroge nital abigail Less than 10,00 0 colon ies/m L Not Available [facility] ([facility]) [address] [facility], [place], [address], 02/21/2025 06:18:57 02/20/20 25 02/19/2025 urina lysis , dipst ick Leukocytes (reference range) negati ve Not Available [facility] [address] [facility] [address], [place], [address], Ph [phone] 02/19/2025 15:08:40 02/20/20 25 02/19/2025 urina lysis , dipst ick Nitrite (reference range:) negati ve Not Available [facility] [address] [facility] [address], [place], [address], Ph [phone] 02/19/2025 15:08:40 02/20/20 25 02/19/2025 urina lysis , dipst ick Urobilinogen (reference range) 0.2 Not Available [facility] [address] [facility] [address], [place], [address], Ph [phone] 02/19/2025 15:08:40 02/20/20 25 02/19/2025 urina lysis , dipst ick Protein (reference range) negati ve Not Available [facility] [address] [facility] [address], [place], [address], Ph [phone] 02/19/2025 15:08:40 02/20/2002/19/2025 urina lysis , dipst ick pH (reference range 5-8.5) 6.0 Not Available [facility] [address] [facility] [address], [place], [address], Ph [phone] 02/19/2025 15:08:40 02/20/20 25 02/19/2025 urina lysis , dipst ick Blood (reference range:) small Not Available [facility] [address] [facility] [address], [place], [address], Ph [phone] 02/19/2025 15:08:40 02/20/2002/19/2025 urina lysis , dipst ick Specific [place] (reference range) 1.015 Not Available [facility] [address] [facility] [address], [place], [address], Ph [phone] 02/19/2025 15:08:40 02/20/20 25 02/19/2025 urina lysis , dipst ick Ketone (reference range) negati ve Not Available [facility] [address] [facility] [address], [place], [address], Ph [phone] 02/19/2025 15:08:40 02/20/20 25 02/19/2025 urina lysis , dipst ick Bilirubin (reference range) negati ve Not Available [facility] [address] [facility] [address], [place], [address], Ph [phone] 02/19/2025 15:08:40 02/20/2002/19/2025 urina lysis , dipst ick Glucose (reference range) negati ve Not Available [facility] [address] [facility] [address], [place], [address], Ph [phone] 02/19/2025 15:08:40 02/20/20 25 02/19/2025 urina lysis , dipst ick Color (reference range: yellow-brown ) Yellow Not Available [facility] [address], [place], [address], Ph [phone] 02/19/2025 15:08:40 Result Notes None recorded. Medical [...] Address Organization Details Last Updated DateTime 5 33068.9 1 g 98.3 [degF] 97 % 97 % 53 /min 120/69 mm[Hg] Zofia Link [facility] & [place] 5 15:55:10 Date Recorded Body weight Body temperature Oxygen saturation Oxygen saturation in Arterial blood by Pulse oximetry Heart rate Respiratory rate Systolic And Diastolic Provider Name and Address Organization Details Last Updated DateTime 5 91921.4 7 g 97.7 [degF] 98 % 98 % 66 /min 66 /min 124/65 mm[Hg] [place] Mcneildez [facility] & [place] 5 15:08:09 Social History None recorded. Functional Status None recorded. Mental Status None recorded. Family History Nothing Reported. Medical History No medical history recorded. Gynecological HistoryNo gynecological history recorded. Obstetrics History GPAL:G 0 P 0 0 0 0 Immunizations Vaccine Type Date Status Note Provider Nam e and Address Organization Details Recorded Time Hep A, adult 8 completed Not Available [facility] 02/19/2025 15:00:21 Hep A, adult 9 completed Not Available [facility] 02/19/2025 15:00:21 Influenza, split virus, quadrivalent, preservative 9 completed Not Available [facility] 02/19/2025 15:00:21 Influenza, split virus, quadrivalent, preservative 0 completed Not Available [facility] 02/19/2025 15:00:21 COVID-19, mRNA, LNP-S, PF, 100 mcg/0.5mL dose or 50 mcg/0.25mL dose 1 completed Not Available [facility] 02/19/2025 15:00:21 COVID-19, mRNA, LNP-S, PF, 100 mcg/0.5mL dose or 50 mcg/0.25mL dose 1 completed Not Available [facility] 02/19/2025 15:00:21 Influenza, split virus, quadrivalent, PF 1 completed Not Available [facility] 02/19/2025 15:00:21 COVID-19, mRNA, LNP-S, PF, 100 mcg/0.5mL dose or 50 mcg/0.25mL dose 1 completed Not Available [facility] 02/19/2025 15:00:21 Influenza, split virus, quadrivalent, PF 2 completed Not Available [facility] 02/19/2025 15:00:21 Past Encounters Encounter ID Performer Location Encounter Start Date Encounter Closed Date Diagnosis/Indication Diagnosis SNOMED-CT Code Diagnosis ICD10 Code Diagnosis IMO Codes Diagnosis Note [id number] DALI TEJADA [address] [facility] [address] [place] [address] 01/01/2025 15:30:35 01/01/2025 16:32:04 Acute allergic serous otitis media of bilateral middle ears [id number] 928964 H65.113 30008160 Acute cough 9755947039 13365562 R05.5 9832819448 Sore throat 197949183 2.9 [id number] Francisco Ruff MD [facility] [address] [facility] [address] [place] [address] 02/19/2025 14:58:15 02/19/2025 15:42:54 Urinary symptoms 060716064 R39.9 [id number] Health Concerns Section Related Observation LastModified by Organization Detai ls LastModified Time None Recorded Concern Status LastModified by Organization Details LastModified Time None Recorded Advance Directives Directive None Recorded Payers Insurance Date Sequence Insurance Name Policy Number Policy Armendariz Covered Member ID Armendariz Member ID Guarantor Name 02/19/2025 1 [place] [id number] Patricia Lynnin [id number] Patricia Rodriguez Notes Date Note Type [...] good fluid intake. Has not taken any kepw-ycc-glywssx medications for symptoms. MARE FISH, DALI [address] [facility], [place], [address], [place] - [place] - [place] & [place] 01/01/2025 16:23:41 02/19/2025 text/html Lower [...] noted in the HPI EARLE HADDAD, DALI [address] [facility], [place], [address], [facility] - [place] - [place] & [place] 02/19/2025 15:29:25 OBGyn Episode No OBEpisode recorded.
--- OUTSIDE RECORDS SUMMARY | 2025-02-28 15:46 | XMS_ITS | Encounter Summary ---
Author Organization Healthcare Address [address] [place] [address] Care Team Providers Care Automotive Consultant Name Role Phone Josie Kinney APRN Primary Care Provider +1- [phone] Encounter Details Date Type Department Care Team (Late st Contact Info) Description 03/15/2023 Community [facility] Community [facility] [address] [place] [address] Quinton Fowler APRN [address] [place] [address] Social History Tobacco Use Types Packs/Day Years [...] on filedocumented in this encounter Care Teams Automotive Consultant Relationship Specialty Start Date End Date Josie Kinney APRN [facility] [facility] [place] [address] [place] [address] PCP - General 03/23/23 documented as of this encounter
--- OUTSIDE RECORDS SUMMARY | 2025-02-28 15:46 | XMS_ITS | Clinical Summary ---
Author Organization [facility] Address [address] [place] [id number] Care Team Providers Care Forest Technician Name Role Phone Josie Kinney ADRIANNE Primary Care Provider +1- [phone] Allergies No known active allergies Medications No [...] 09/25/2007 [facility]-Cervical Cancer Screening 2010 [facility]-HPV/Cotest 2010 IBU-YRLAN-05 Vaccine (4 - season) 2024 02/27/2021, 06/18/2020, [...] Final Res ult [facility] [address] [place] [address] * Hepatitis C Antibody - ED (03/23/2023 3:59 PM EST) [facility] Hepatitis C Antibody Negative Negative 03/23/2023 4:58 PM EST HEALTHCARE LAB Blood Venous blood specimen / Unknown Venipuncture / Unknown 03/23/2023 3:59 PM EST 03/23/2023 4:11 PM EST Marvin Kamara MD LAB BLOOD ORDERABLES Final Res ult Performing Organization Address City/[facility] Co de Phone Number HEALTHCARE LAB [address] [place] [address] from Last 3 Months or Most Recently Relevant to Health Maintenance Insurance [facility], [facility] Care Teams Forest Technician Relationship Specialty Start Date End Date Josie Kinney APRN [address] [facility] [address] [place] [address] [facility] - General 03/23/23
--- OUTSIDE RECORDS SUMMARY | 2025-02-28 15:46 | XMS_ITS | Continuity of Care Document ---
Author Organization [facility] Address [address] [facility] [address] [place] [address] Assessment Encounter Date Assessment Date Assessment LastModified [...] us group A DNA 2024 025 [email or web address] [facility], [address] [facility] [address], [place], [address], Ph [phone] 16:23:19 Referral None recorded. Procedures None recorded. Surgeries None recorded. Imaging None recorded. Medication Orders promethazin e-DM 6.25 mg-15 mg/5 mL oral syrup 2024 025 [facility], [address] [facility] [address] [facility] [address], [place], [id number], 5 16:08:40 Medrol (Duran) 4 mg tablets in a dose pack 2024 025 [facility], [address] [place] [address] [address] [place], [id number], 16:08:40 Stahist AD 25 mg-60 mg tablet 2024 025 [facility], [address] [place] [address] E [place] López [place], [id number], 05:02:03 Patient TargetsNo targets recorded. Patient InstructionsNo instructions recorded. Reason for Referral None Reported. Results Created Date Observation Date Name Description Value Unit Range Abnormal Flag Note LastModifiedBy Organization Detail LastModifiedTime 01/02/2001/01/2025 strep tococ cus group A DNA Strep negati ve Not Available [facility] [address] [facility] [address], [place], [address], Ph [phone] 01/01/2025 16:11:54 Result Notes None recorded. Medical [...] Address Organization Details Last Updated DateTime 5 12298.9 1 g 98.3 [degF] 97 % 97 % 53 /min 120/69 mm[Hg] Zofia Link [facility] & [place] 5 15:55:10 Social History None recorded. Functional Status None recorded. Mental Status None recorded. Family History Nothing Reported. Medical History No medical history recorded. Gynecological HistoryNo gynecological history recorded. Obstetrics History GPAL:G 0 P 0 0 0 0 Immunizations Vaccine Type Date Status Note Provider Nam e and Address Organization Details Recorded Time Hep A, adult 8 completed Not Available [facility] 02/19/2025 15:00:21 Hep A, adult 9 completed Not Available [facility] 02/19/2025 15:00:21 Influenza, split virus, quadrivalent, preservative 9 completed Not Available [facility] 02/19/2025 15:00:21 Influenza, split virus, quadrivalent, preservative 0 completed Not Available [facility] 02/19/2025 15:00:21 COVID-19, mRNA, LNP-S, PF, 100 mcg/0.5mL dose or 50 mcg/0.25mL dose 1 completed Not Available [facility] 02/19/2025 15:00:21 COVID-19, mRNA, LNP-S, PF, 100 mcg/0.5mL dose or 50 mcg/0.25mL dose 1 completed Not Available [facility] 02/19/2025 15:00:21 Influenza, split virus, quadrivalent, PF 1 completed Not Available [facility] 02/19/2025 15:00:21 COVID-19, mRNA, LNP-S, PF, 100 mcg/0.5mL dose or 50 mcg/0.25mL dose 1 completed Not Available [facility] 02/19/2025 15:00:21 Influenza, split virus, quadrivalent, PF 2 completed Not Available [facility] 02/19/2025 15:00:21 Past Encounters Encounter ID Performer Location Encounter Start Date Encounter Closed Date Diagnosis/Indication Diagnosis SNOMED-CT Code Diagnosis ICD10 Code Diagnosis IMO Codes Diagnosis Note [id number] MARE FISH NP [facility] [address] [place] [address] 01/01/2025 15:30:35 01/01/2025 16:32:04 Acute allergic serous otitis media of bilateral middle ears [id number] 557624 H65.113 62151308 Acute cough 4791142184 95050417 R05.6 1179985470 Sore throat 553526524 J0 2.9 04808 Health Concerns Section Related Observation LastModified by Organization Detai ls LastModified Time None Recorded Concern Status LastModified by Organization Details LastModified Time None Recorded Payers Encounter Date Sequence Insurance Name Policy Number Policy Armendariz Covered Member ID Armendariz Member ID Guarantor Name 01/01/2025 1 [place] [id number] Patricia Rodriguez [id number] Patricia Rodriguez Notes Date Note Type [...] good fluid intake. Has not taken any sudr-hwg-yvpktdv medications for symptoms. MARE FISH NP [address] [facility], [place], [address], [facility] [place] & [place] 01/01/2025 16:23:41 OBGyn Episode No OBEpisode recorded.
== END 2025-02-28 23:59 | disposition home or self-care (01) ==
LOC: RAD 15:43
PROVIDERS: PCP Nurse Practitioner Family; Visit Provider Nurse Practitioner Family
DX: R31.29 Other microscopic hematuria (principal); R79.89 Other specified abnormal findings of blood chemistry; R35.0 Frequency of micturition
CPT/HCPCS: 76770